=== PATIENT | female | born 1950 | race Caucasian/White ===

== ENCOUNTER 2018-01-05 13:54 | Emergency (ER) | payer MEDICARE, BC ==
[~2018-01-05] VITALS: Ht 167.6 cm; Wt 117.9 kg
[~2018-01-05 13:54] MED LIST: ASPIRIN81 MG PO; BUPROPION HCL150 M2 PO; CRESTOR10 MG PO; FENOFIBRATE160 MG PO; GABAPENTIN300 MG PO; LEVAQUIN500 MG PO; LEVOTHYROXINE75 MCG PO; MOBIC7.5 MG PO; NEXIUM40 MG PO; TRIBENZOR 40-11 EAC1 PO; ULTRAM50 MG PO; VERAPAMIL ER180 MG PO
--- OUTSIDE RECORDS SUMMARY | 2018-01-05 13:58 | XMS REPORT | Clinical Summary ---
Author Author [facility] Organization [facility] Address Unknown Phone Unavailable Care Team Providers Care Financial Services Assistant Name Role Phone Asked, Pcp PCP Unavailable Allergies Active Allergy Reactions Severity Noted Date Comments Latex 08/19/2016 Sulfa (Sulfonamide 08/19/2016 Antibiotics) Current Medications Prescription Sig. Disp. Refills Start End Date Status Date meloxicam (MOBIC) 7.5 MG Take 7.5 mg by mouth Active tablet daily. buPROPion SR (WELLBUTRIN Take 150 mg by mouth 2 Active SR) 150 MG 12 hr tablet (two) times a day. rosuvastatin (CRESTOR) 20 Take 20 mg by mouth Active MG tablet daily. esomeprazole (NexIUM) 40 Take 40 mg by mouth daily Active MG capsule before breakfast. clonAZEPAM (KlonoPIN) 1 Take 1 mg by mouth 2 Active MG tablet (two) times a day as needed for seizures. gabapentin (NEURONTIN) Take 300 mg by mouth 3 Active 300 MG capsule (three) times a day. aspirin (ECOTRIN) 81 MG Take 81 mg by mouth Active enteric coated tablet daily. verapamil sustained Take 180 mg by mouth Active release (CALAN-SR) 180 MG nightly. SR tablet fenofibrate (LOFIBRA) 160 Take 160 mg by mouth Active MG tablet daily. levothyroxine (SYNTHROID, Take 75 mcg by mouth Active LEVOTHROID) 75 MCG tablet every morning. Active Problems Problem Noted Date Hypertension 08/19/2016 Hyperlipidemia 08/19/2016 Social History Tobacco Use Types Packs/Day Years Used Date Current Every Day Smoker Sex Assigned at Date Recorded Not on file Last Filed Vital Signs Not on file Plan of Treatment Health Maintenance Due Date Last Done Comments COLONOSCOPY 12/29/2001 MAMMOGRAM 12/29/2001 ZOSTER VACCINE 2011 PNEUMOCOCCAL 12/29/2016 POLYSACCHARIDE VACCINE AGE 65 AND OVER PNEUMOCOCCAL-13 12/29/2016 INFLUENZA VACCINE 05/06/2017 Results Not on fileafter 01/04/2017 Insurance Payer Benefit Subscriber ID Type Phone Address Plan / Group BCBS EXCHANGE BLUE xxxxxxxxxxxx Exchange ADVANTAGE HMO EXCH Home:
--- OUTSIDE RECORDS SUMMARY | 2018-01-05 14:55 | XMS REPORT | Clinical Summary ---
Author Author [facility] Organization [facility] Address Unknown Phone Unavailable Care Team Providers Care Almond Pan Finisher Name Role Phone Asked, Pcp PCP Unavailable [...]
[2018-01-05 15:11] LABS: CLARITY,URINE SL CLOUDY (CLEAR); COLOR,URINE YELLOW (YELLOW)
[2018-01-05 15:12] LABS: BILIRUBIN,URINE NEGATIVE (NEGATIVE); KETONES,URINE NEGATIVE (NEGATIVE); LEUKOCYTE ESTERASE ,URINE 2+ (NEGATIVE); NITRITE,URINE NEGATIVE (NEGATIVE); PROTEIN,URINE DIPSTICK TRACE (NEGATIVE); URINE UROBILINOGEN 0.2 mg/dL (0.2 - 1)
[2018-01-05 15:27] LABS: EPITHELIAL CELLS,URINE MODERATE /LPF; RENAL EPITHELIAL CELLS,URINE FEW; TRANSITIONAL EPI CELLS,URINE FEW
[2018-01-05] MEDS ORDERED: LEVOFLOXACIN 500 MG TAB PO ONE (16:45)
[2018-01-05] MEDS ORDERED: KETOROLAC TROMETHAMINE 60 MG/2 ML VIAL IM ONE (16:45)
[2018-01-05] MEDS ORDERED: GUAIFENESIN 600MG/DEXTROMETHORPHAN 30MG TABSR PO ONE (17:00)
[2018-01-05] MEDS ORDERED: DEXAMETHASONE SOD PHOS 10 MG/1 ML VIAL INJ ONE (17:00)
[2018-01-05] MEDS ORDERED: ALBUTEROL/IPRATROPIUM 3 ML NEB NEB ONE (17:00)
[2018-01-05] MEDS ORDERED: DIPHENOXYLATE/ATROPINE TAB PO ONE (17:00)
--- NOTE | 2018-01-05 17:24 | Diagnostic Imaging Report ---
PROCEDURE:X-RAY BILATERAL RIBS WITH CHEST XRAY COMPARISON:None. INDICATIONS:COUGH WITH FLANK AND RIB PAIN FINDINGS: BONES: Normal mineralization. No acute fracture or dislocation. Joint spaces are within normal limits. Degenerative changes of the thoracic spine. SOFT TISSUES:Negative. OTHER:Bibasilar linear atelectasis. Scalloping of the right hemidiaphragm. No focal consolidations. No pleural effusion or pneumothorax. CONCLUSION: No displaced rib fractures. Bibasilar linear atelectasis. Mary Ellen Prieto M.D. Dictated by: Mary Ellen Prieto M.D. on 01/05/2018 at 17:25 Electronically approved by: Mary Ellen Prieto M.D. on 01/05/2018 at 17:25
[2018-01-05 18:35] LABS: BASOPHILS # (AUTO) 0.1 (0.0-0.1); BASOPHILS % 0.4 % (0.0-1.0); EOSINOPHILS # (AUTO) 0.4 (0.0-0.4); EOSINOPHILS % 3.2 % (0.0-6.0); HEMATOCRIT 40.2 % (34.2-44.1); HEMOGLOBIN 13.2 g/dL (12.0-16.0); LYMPHOCYTES # (AUTO) 2.4 (1.0-3.2); LYMPHOCYTES % 21.4 % (18.0-39.1); MEAN CORPUSCULAR HEMOGLOBIN 30.6 pg (28-32); MEAN CORPUSCULAR HGB CONC 32.8 g/dL (31-35); MEAN CORPUSCULAR VOLUME 93.1 fL (81-99); MONOCYTES # (AUTO) 0.9 (0.2-0.8); MONOCYTES % 7.6 % (4.4-11.3); NEUTROPHILS # (AUTO) 7.5 (2.1-6.9); NEUTROPHILS % 66.8 % (38.7-80.0); PLATELET COUNT 382 x10e3/uL (140-360); RED BLOOD COUNT 4.32 x10e6/uL (3.6-5.1); RED CELL DISTRIBUTION WIDTH 13.2 % (11.7-14.4)
[2018-01-05 18:52] LABS: ALBUMIN 3.8 g/dL (3.5-5.0); ALBUMIN/GLOBULIN RATIO 0.9 (0.8-2.0); ANION GAP 17.1 mmol/L (8-16); CALCIUM 10.6 mg/dL (8.4-10.2); CREATININE, SERUM 2.27 mg/dL (0.57-1.11); POTASSIUM 5.1 mmol/L (3.5-5.1)
== END 2018-01-05 20:01 | disposition home or self-care (01) ==
LOC: ER 14:53
DX: R10.12 Left upper quadrant pain (principal); R11.0 Nausea; R19.7 Diarrhea, unspecified; R05 Cough; M79.1 Myalgia; N18.9 Chronic kidney disease, unspecified; F17.210 Nicotine dependence, cigarettes, uncomplicated
CPT/HCPCS: 36415; 71111; 80053; 81001; 85025; 87086; 94640; 99284; J1100

== ENCOUNTER 2018-10-22 02:06 | Inpatient (IN) | payer MEDICARE, BC ==
[~2018-10-22] VITALS: Ht 167.6 cm; Wt 98.7 kg
[2018-10-22] VITALS (7 sets, daily range): BP systolic 138–219; BP diastolic 68–113
--- OUTSIDE RECORDS SUMMARY | 2018-10-22 02:11 | XMS REPORT | Clinical Summary ---
Author Author [facility] Address Unknown Phone Unavailable Care Team Providers Care Electrical Fitter Name Role Phone Asked, No Pcp PCP Unavailable Allergies Comments Active Allergy Reactions Severity Noted Date Latex 08/19/2016 Sulfa (Sulfonamide 08/19/2016 Antibiotics) Medications End Date Status Medication Sig Dispensed Refills Start Date Active meloxicam (MOBIC) 7.5 MG Take 7.5 mg 0 tablet by mouth daily. Active buPROPion SR (WELLBUTRIN Take 150 mg 0 SR) 150 MG 12 hr tablet by mouth 2 (two) times a day. Active rosuvastatin (CRESTOR) 20 Take 20 mg by 0 MG tablet mouth daily. Active esomeprazole (NexIUM) 40 Take 40 mg by 0 MG capsule mouth daily before breakfast. Active clonAZEPAM (KlonoPIN) 1 Take 1 mg by 0 MG tablet mouth 2 (two) times a day as needed for seizures. Active gabapentin (NEURONTIN) Take 300 mg 0 300 MG capsule by mouth 3 (three) times a day. Active aspirin (ECOTRIN) 81 MG Take 81 mg by 0 enteric coated tablet mouth daily. Active verapamil sustained Take 180 mg 0 release (CALAN-SR) 180 MG by mouth SR tablet nightly. Active fenofibrate (LOFIBRA) 160 Take 160 mg 0 MG tablet by mouth daily. Active levothyroxine (SYNTHROID, Take 75 mcg 0 LEVOTHROID) 75 MCG tablet by mouth every morning. Active Problems Problem Noted Date Hypertension 08/19/2016 Hyperlipidemia 08/19/2016 Social History Date Tobacco Use Types Packs/Day Years Used Current Every Day Smoker Sex Assigned at Date Recorded Not on file Industry Job Start Date Occupation Not on file Not on file Not on file Travel End Travel History Travel Start No recent travel history available. Last Filed Vital Signs Not on file Plan of Treatment Health Maintenance Due Date Last Done Comments BREAST CANCER SCREENING 12/29/2001 COLON CANCER SCREENING 12/29/2001 SHINGLES VACCINES (1 of 12/29/2001 2) PNEUMOCOCCAL 12/29/2016 POLYSACCHARIDE VACCINE AGE 65 AND OVER PNEUMOCOCCAL-13 12/29/2016 INFLUENZA VACCINE 05/06/2018 Results Not on fileafter 10/21/2017 Insurance Payer Benefit Subscriber ID Type Phone Address Plan / Group BCBS EXCHANGE BLUE xxxxxxxxxxxx Exchange ADVANTAGE HMO EXCH Advance Directives Patient has advance care planning documents on file. For more information, yong wood contact: Sukhjinder Bassett [address] [place] [address]
--- OUTSIDE RECORDS SUMMARY | 2018-10-22 02:11 | XMS REPORT ---
[facility] Address Unknown Phone Unavailable Care Team Providers Care Toilet And Laundry Soap Supervisor Name Role Phone Familia ACOSTA Unavailable Unavailable Problems This patient has no known problems. Allergies, Adverse Reactions, Alerts This patient has no known allergies or adverse reactions. Medications This patient has no known medications. Results Test Description Test Time Test Comments Text Results Atomic Results Result Comments RIBS BILAT W/CXR [place] [id number] Patient Name: AYESHA DOUGLAS MR #: [id number] : 1950 Age/Sex: 67/F Req #: [id number] Adm Physician: Ordered by: NICOLAS ACOSTA MD Report #: [id number] Location: ER Room/Bed: Procedure: [id number] DX/RIBS BILAT W/CXR Exam Date: 01/05/18 Exam Time: 1520 REPORT STATUS: Signed PROCEDURE: X-RAY BILATERAL RIBS WITH CHEST XRAY COMPARISON: None. INDICATIONS: COUGH WITH FLANK AND RIB PAIN FINDINGS: BONES: Normal mineralization. No acute fracture or dislocation. Joint spaces are within normal limits. Degenerative changes of the thoracic spine. SOFT TISSUES: Negative. OTHER: Bibasilar linear atelectasis. Scalloping of the right hemidiaphragm. No focal consolidations. No pleural effusion or pneumothorax. CONCLUSION: No displaced rib fractures. Bibasilar linear atelectasis. Mary Ellen Weaver M.D. Dictated by: Mary Ellen Weaver M.D. on 01/05/2018 at 17:25 Electronically approved by: Mary Ellen Weaver M.D. on 01/05/2018 at 17:25 Dictated By: ALVINO WEAVER MD, MD 24 Transcribed By: EVELYNE on 01/05/181724 COPY TO: NICOLAS ACOSTA MD
[2018-10-22] MEDS ORDERED: NIFEDIPINE 10 MG CAP PO STA (02:23)
[2018-10-22 02:45] LABS: BASOPHILS # (AUTO) 0.1 (0.0-0.1); BASOPHILS % 0.3 % (0.0-1.0); EOSINOPHILS # (AUTO) 0.3 (0.0-0.4); EOSINOPHILS % 1.5 % (0.0-6.0); HEMATOCRIT 45.8 % (34.2-44.1); HEMOGLOBIN 15.2 g/dL (12.0-16.0); LYMPHOCYTES # (AUTO) 3.6 (1.0-3.2); LYMPHOCYTES % 18.8 % (18.0-39.1); MEAN CORPUSCULAR HEMOGLOBIN 29.7 pg (28-32); MEAN CORPUSCULAR HGB CONC 33.2 g/dL (31-35); MEAN CORPUSCULAR VOLUME 89.6 fL (81-99); MONOCYTES # (AUTO) 1.4 (0.2-0.8); MONOCYTES % 7.3 % (4.4-11.3); NEUTROPHILS # (AUTO) 13.8 (2.1-6.9); PLATELET COUNT 365 x10e3/uL (140-360); RED BLOOD COUNT 5.11 x10e6/uL (3.6-5.1); RED CELL DISTRIBUTION WIDTH 13.7 % (11.7-14.4)
[2018-10-22 02:58] LABS: BILIRUBIN,URINE NEGATIVE (NEGATIVE); CLARITY,URINE CLOUDY (CLEAR); COLOR,URINE YELLOW (YELLOW); KETONES,URINE NEGATIVE (NEGATIVE); LEUKOCYTE ESTERASE ,URINE NEGATIVE (NEGATIVE); NITRITE,URINE NEGATIVE (NEGATIVE); PROTEIN,URINE DIPSTICK 2+ (NEGATIVE); URINE UROBILINOGEN 0.2 mg/dL (0.2 - 1)
--- NOTE | 2018-10-22 03:07 | Diagnostic Imaging Report ---
EXAMINATION: Head CT without contrast. HISTORY:Headache, hypertension. COMPARISON:None. TECHNIQUE: Multidetector axial images were obtained from the foramen magnum to the vertex without contrast. The images were reconstructed using brain and bone algorithms. Thin section brain images were reformatted into coronal and sagittal planes. Dose modulation, iterative reconstruction, and/or weight based adjustment of the mA/kV was utilized to reduce the radiation dose to central cerebral low as reasonably achievable. Intravenous contrast: None IMAGE QUALITY: Acceptable. FINDINGS: Skull/scalp: No lytic or blastic. lesions. No surgical changes. Parenchyma: Nonspecific bilateral frontoparietal patchy white matter hypodensity are likely related to small vessel ischemic changes. No acute hemorrhage, mass or acute major vascular territorial infarct. Arteries: No density suggestive of thrombosis. Atherosclerotic calcification in bilateral carotid siphon. Dural sinuses: No abnormal density suggestive of thrombosis. Ventricles: Mild ventricular dilatation, mildly disproportionate to the amount of cerebral volume loss. Extra-axial spaces: No abnormal density. Brain volume: Normal for age. Craniocervical junction: No mass, Chiari malformation, or basilar invagination. Sella: No mass. Paranasal/mastoid sinuses: Moderate mucosal thickening in bilateral sphenoid and left frontal sinus. IMPRESSION: 1. No acute intracranial abnormality, particularly no acute hemorrhage or major vascular territorial infarct. 2. Mild supratentorial white matter microvascular ischemic changes. 3. Mild ventriculomegaly disproportionate to the amount of cerebral volume loss may be due to selective central cerebral parenchymal volume loss or represent chronic compensated communicating type hydrocephalus in appropriate clinical setting. 4. Moderate mucosal inflammatory changes in bilateral sphenoid and left frontal sinus. Signed by: Dr. Kavita Hatch M.D. on 10/22/2018 3:04 AM
[2018-10-22 03:08] LABS: BACTERIA,URINE MANY /HPF; EPITHELIAL CELLS,URINE MANY /LPF; TRANSITIONAL EPI CELLS,URINE FEW
[2018-10-22] MEDS ORDERED: ONDANSETRON HCL INJ 2MG/ML 2ML 2 MG/ML VIAL IV STA ×2 (03:09→03:10)
[2018-10-22] MEDS ORDERED: MORPHINE SULFATE 5 MG/ML VIAL IV ONE (03:15)
[2018-10-22 03:18] LABS: ALBUMIN 3.3 g/dL (3.5-5.0); ALBUMIN/GLOBULIN RATIO 0.9 (0.8-2.0); ANION GAP 16.8 mmol/L (8-16); CALCIUM 9.7 mg/dL (8.4-10.2); CREATININE, SERUM 1.77 mg/dL (0.57-1.11); POTASSIUM 3.8 mmol/L (3.5-5.1)
[2018-10-22 03:19] LABS: CREATINE KINASE MB 2.1 ng/mL (0-5.0)
[2018-10-22 03:25] LABS: ERYTHROCYTE SEDIMENTATION RATE 28 mm/hr (0-20)
[2018-10-22 03:44] LABS: COLOR,URINE YELLOW (YELLOW)
[2018-10-22 03:45] LABS: AMORPHOUS SEDIMENT,URINE FEW (FEW); BACTERIA,URINE MANY /HPF; BILIRUBIN,URINE NEGATIVE (NEGATIVE); CLARITY,URINE HAZY (CLEAR); EPITHELIAL CELLS,URINE RARE /LPF; KETONES,URINE NEGATIVE (NEGATIVE); LEUKOCYTE ESTERASE ,URINE NEGATIVE (NEGATIVE); NITRITE,URINE NEGATIVE (NEGATIVE); PROTEIN,URINE DIPSTICK 2+ (NEGATIVE); RBC,URINE 0-5 /HPF (0-5); URINE UROBILINOGEN 0.2 mg/dL (0.2 - 1); WBC,URINE (MAN) 0-5 /HPF (0-5)
[2018-10-22] MEDS ORDERED: MORPHINE SULFATE INJ 4 MG/ML INJ 1ML ONE (03:59)
[2018-10-22] MEDS ORDERED: SODIUM CHLORIDE 0.9% 500ML 500 ML IV ONE (04:00)
--- NOTE | 2018-10-22 04:19 | Diagnostic Imaging Report ---
EXAM: CHEST 2 VIEWS, PA and lateral INDICATION: Cough/hypertension COMPARISON: None FINDINGS: LINES/TUBES: None LUNGS: No consolidations or edema. Mild bibasilar linear atelectasis/scarring. PLEURA: No effusions or pneumothorax. HEART AND MEDIASTINUM: Normal size and contour. BONES AND SOFT TISSUES: No acute findings. IMPRESSION: No evidence of pneumonia. Signed by: Dr. Abiloa Otto M.D. on 10/22/2018 4:16 AM
[2018-10-22] MEDS ORDERED: FLAXSEED1000 MG PO (04:41)
[2018-10-22] MEDS ORDERED: FLAXSEED OIL1000 MG (04:41)
[2018-10-22] MEDS ORDERED: MORPHINE SULFATE 2 MG/ML SYR 1ML IV PRN (04:45)
[2018-10-22] MEDS ORDERED: ONDANSETRON HCL INJ 2MG/ML 2ML 2 MG/ML VIAL IV PRN (04:45)
[2018-10-22] MEDS ORDERED: SODIUM CHLORIDE 0.9% 1000ML 1,000 ML IV ONE (04:45)
[2018-10-22 04:48] LABS: INR 0.86; PARTIAL THROMBOPLASTIN TIME 33.9 seconds (23.8-35.5); PROTHROMBIN TIME 12.5 seconds (11.9-14.5)
[2018-10-22] MEDS ORDERED: LASIX40 MG PO (04:48)
[2018-10-22] MEDS ORDERED: CLONAZEPAM1 MG PO (04:48)
[2018-10-22] MEDS ORDERED: [UNRECOGNIZED DRUG - OTHER] PO (04:48)
[2018-10-22] MEDS ORDERED: ALDACTONE25 MG PO (04:48)
[2018-10-22] MEDS ORDERED: ATENOLOL50 MG PO (04:48)
[2018-10-22] MEDS ORDERED: LINZESS PO (04:48)
--- OUTSIDE RECORDS SUMMARY | 2018-10-22 04:54 | XMS REPORT | Clinical Summary ---
Author Author [facility] Organization [facility] Address Unknown Phone Unavailable Care Team Providers Care Aspnet Developer Name Role Phone Asked, No Pcp PCP [...] more information, yong wood contact: Sukhjinder Bassett [address] [place] [address]
[2018-10-22] MEDS: CEFTRIAXONE SOD 1 GM/NS 50 ML 50 ML IV SCH (05:05)
[2018-10-22] MEDS: HYDRALAZINE HCL 20 MG/ML VIAL IV PRN (05:12)
--- NOTE | 2018-10-22 06:15 | NUR ---
PT ARRIVED ON THE UNIT AT 0608 WITH HER DAUGHTER. NO RESPIRATORY DISTRESS NOTED. BED IN LOWEST POSITION, LOCKED, AND CALL LIGHT WITHIN REACH. WILL CONTINUE TO MONITOR.
--- NOTE | 2018-10-22 06:48 | NUR ---
PAGE DR Alverto REYEZ IN REGARD TO HIGH BP 219/113 AND HEADACHE. AWAITING CALL BACK.
--- NOTE | 2018-10-22 07:27 | NUR ---
PER DR REYEZ RESTART HOME MEDICATION AND NIFEDIPINE 60MG BID. WILL CONTINUE TO MONITOR.
[2018-10-22] MEDS ORDERED: LINZESS 72 MCG PO PRN ×2 (07:30→07:45)
[2018-10-22] MEDS ORDERED: TRAMADOL HCL 50 MG TAB PO PRN (07:30)
[2018-10-22] MEDS ORDERED: CLONAZEPAM 1 MG TAB PO PRN (07:30)
--- NOTE | 2018-10-22 07:45 | NUR ---
PATIENT IN BED WITH HEAD OF BED ELEVATED TALKING TO HER DAUGHTER, NO RESPIRATORY DISTRESS OBSERVED. DENIED PAIN AT THIS TIME. LARGE BRUISE OBSERVED ON THE LEFT SIDE OF ABDOMEN, PATIENT STATED THAT SHE FELL AT HOME 4 DAYS AGO. WALKER PROVIDED, AND PATIENT INSTRUCTED TO CALL FOR ASSISTANCE BEFORE GETTING OUT OF BED, SHE VERBALIZED UNDERSTANDING. PATIENT NOTED WITH ELEVATED BLOOD PRESSURE, HOME MEDS RENEWED, AWAITING PHARMACY TO VERIFY. RESPIRATION EVEN AND UNLABORED. ABDOMEN SOFT AND NON DISTENDED. PATIENT ORIENTED TO SURROUNDINGS. BED IN LOWER POSITION, CALL LIGHT AT REACH. DAUGHTER AT BED SIDE.
[2018-10-22] MEDS: LEVOTHYROXINE SODIUM 75 MCG TAB PO SCH (07:55)
[2018-10-22] MEDS: FUROSEMIDE 40 MG TAB PO SCH (08:11)
[2018-10-22] MEDS: ASPIRIN 81 MG CHEW TAB PO SCH (08:11)
[2018-10-22] MEDS: GABAPENTIN 300 MG CAP PO SCH ×2 (08:11→17:21)
[2018-10-22] MEDS: SPIRONOLACTONE 25 MG TAB PO SCH (08:11)
[2018-10-22] MEDS: ATENOLOL 50 MG TAB PO SCH (08:11)
[2018-10-22] MEDS: PANTOPRAZOLE SOD 40 MG TABEC PO SCH (08:11)
[2018-10-22] MEDS: BUPROPION HCL SR 150 MG TAB PO SCH (08:12)
[2018-10-22] MEDS ORDERED: LEVOTHYROXINE SODIUM 75 MCG TAB PO SCH (09:00)
[2018-10-22] MEDS ORDERED: NIFEDIPINE CR 30 MG TAB PO SCH (09:00)
[2018-10-22] MEDS ORDERED: NIFEDIPINE 10 MG CAP PO SCH (09:00)
--- NOTE | 2018-10-22 09:52 | NUR ---
PATIENT NOTED WITH B/P OF 175/100. ALL AM MEDICATIONS ADMINISTERED, B/P RECHECKED WITH THE READING OF 139/68. WILL CONTINUE TO MONITOR.
[2018-10-22] MEDS ORDERED: MORPHINE SULFATE INJ 4 MG/ML INJ 1ML IV PRN (10:00)
[2018-10-22 10:30] LABS: CREATINE KINASE MB 1.5 ng/mL (0-5.0)
--- NOTE | 2018-10-22 10:42 | History and Physical ---
She is a 67-year-old female patient of Dr. Eldon Dubon. ADMITTING CHIEF COMPLAINT: Severe headache, bilateral temporal and occipital headache. HISTORY OF PRESENT ILLNESS: Ms. Lupis Cabrera has a headache, which comes and goes. The patient has right temporal frontal and left temporal occipital region headache without any neck pain, nausea or vomiting. The patient denies having any chest pain, shortness of breath. The patient was having severe headache. The patient also had right ear pain for a couple of months. Right ear . On arrival in the ER, the patient had severe hypertension. Blood pressure was 210/120. REVIEW OF SYSTEMS: Headache. No chest pain. No shortness of breath. Right ear pain. PAST MEDICAL HISTORY: Hypertension, CVA, hypertensive heart disease, CKD, renal artery stenosis, and depression. PAST SURGICAL HISTORY: Cholecystectomy and hysterectomy. MEDICATIONS: See from the list. ALLERGIES: THE PATIENT IS ALLERGIC TO SULFA AND AMOXICILLIN. FAMILY HISTORY: Hypertension. PHYSICAL EXAMINATION GENERAL: She is an elderly middle-aged female patient lying in bed not in any acute distress. VITALS: Temperature 98, pulse rate 80, respirations 20. The most recent blood pressure is 140/73. HEENT: Normocephalic and atraumatic. No JVD. No lymphadenopathy. LUNGS: Bilateral equal fair air entry. No rales. No rhonchi. HEART: S1 and S2 regular. No murmurs. No gallops. ABDOMEN: Soft. Bowel sounds are present. NEUROLOGICAL: No focal neuro deficits. Right ear congestion. EKG is showing right bundle branch block. LABORATORY EXAMINATION: The patient has a sodium of 128, creatinine of 1.77, BUN of 44. WBC count of 19.4. The patient had a brain CT done, which was showing inflammatory changes in the bilateral sphenoid and frontal sinus. Purulent sinusitis with no acute stroke. was negative. ADMITTING IMPRESSION/DIAGNOSES 1. Severe malignant hypertension. 2. Headache. 3. Hyponatremia. 4. Renal insufficiency. 5. Leukocytosis. 6. The patient has sinusitis also. The patient was admitted with the above diagnoses. The patient was given IV fluids. The patient was monitored. Will obtain urine C and S. in the morning. Will treat the patient with IV Levaquin for the sinusitis. Job#: [id number] RI cc:ELDON DUBON MD
[2018-10-22] MEDS: LEVOFLOXACIN 500MG/D5W 100ML 100 ML IV SCH (10:55)
--- NOTE | 2018-10-22 12:13 | NUR ---
PATIENT C/O GAS PAIN. MD NOTIFIED, NEW ORDER RECEIVED.
[2018-10-22] MEDS ORDERED: SIMETHICONE 80 MG CHEW PO PRN (12:15)
[2018-10-22] MEDS: ACETAMINOPHEN 325 MG TAB PO PRN ×2 (12:55→19:42)
--- NOTE | 2018-10-22 15:30 | NUR ---
PATIENT IN BED RESTING WITH NO RESPIRATORY DISTRESS. NO MORE C/O HEADACHE. BED IN LOWER POSITION, CALL LIGHT AT REACH.
[2018-10-22 18:48] LABS: CREATINE KINASE 54 IU/L (29-168)
[2018-10-22] MEDS ORDERED: SODIUM CHLORIDE 0.9% 250ML 250 ML ONE (23:58)
[2018-10-23] VITALS: BP 164/76
[2018-10-23] MEDS: ACETAMINOPHEN 325 MG TAB PO PRN ×3 (00:03→11:10)
[2018-10-23 04:00] VITALS: BP 146/76
[2018-10-23] MEDS: LEVOTHYROXINE SODIUM 75 MCG TAB PO SCH (05:14)
[2018-10-23] MEDS: CEFTRIAXONE SOD 1 GM/NS 50 ML 50 ML IV SCH (05:14)
[2018-10-23 06:11] LABS: BASOPHILS # (AUTO) 0.1 (0.0-0.1); BASOPHILS % 0.4 % (0.0-1.0); EOSINOPHILS # (AUTO) 0.5 (0.0-0.4); EOSINOPHILS % 3.3 % (0.0-6.0); HEMATOCRIT 41.8 % (34.2-44.1); HEMOGLOBIN 13.6 g/dL (12.0-16.0); LYMPHOCYTES # (AUTO) 3.3 (1.0-3.2); LYMPHOCYTES % 24.6 % (18.0-39.1); MEAN CORPUSCULAR HEMOGLOBIN 29.6 pg (28-32); MEAN CORPUSCULAR HGB CONC 32.5 g/dL (31-35); MEAN CORPUSCULAR VOLUME 90.9 fL (81-99); MONOCYTES # (AUTO) 1.2 (0.2-0.8); MONOCYTES % 9.2 % (4.4-11.3); NEUTROPHILS # (AUTO) 8.3 (2.1-6.9); NEUTROPHILS % 61.4 % (38.7-80.0); PLATELET COUNT 287 x10e3/uL (140-360); RED CELL DISTRIBUTION WIDTH 13.9 % (11.7-14.4)
[2018-10-23 06:36] LABS: ALBUMIN 3.1 g/dL (3.5-5.0); ALBUMIN/GLOBULIN RATIO 0.8 (0.8-2.0); ANION GAP 12.3 mmol/L (8-16); CALCIUM 9.5 mg/dL (8.4-10.2); CREATININE, SERUM 1.45 mg/dL (0.57-1.11); POTASSIUM 3.3 mmol/L (3.5-5.1)
[2018-10-23 06:53] LABS: CHOL/HDL RATIO 5.5 (3.0-3.6)
--- NOTE | 2018-10-23 07:30 | NUR ---
PT UP IN BED NO C/O PAIN,NO DISTRESS
[2018-10-23 08:00] VITALS: BP 137/83
[2018-10-23] MEDS ORDERED: NON-FORMULARY MEDICATION PO SCH (09:00)
[2018-10-23] MEDS ORDERED: AMLODIPINE BESYLATE 10 MG TAB PO SCH (09:00)
[2018-10-23] MEDS: SPIRONOLACTONE 25 MG TAB PO SCH (09:00)
[2018-10-23] MEDS ORDERED: OLMESARTAN 20 MG TAB PO SCH (09:00)
[2018-10-23] MEDS ORDERED: HYDROCHLOROTHIAZIDE 25 MG TAB PO SCH (09:00)
[2018-10-23] MEDS: ASPIRIN 81 MG CHEW TAB PO SCH (09:18)
[2018-10-23] MEDS: FUROSEMIDE 40 MG TAB PO SCH (09:18)
[2018-10-23] MEDS: PANTOPRAZOLE SOD 40 MG TABEC PO SCH (09:18)
[2018-10-23] MEDS: BUPROPION HCL SR 150 MG TAB PO SCH (09:18)
[2018-10-23] MEDS: GABAPENTIN 300 MG CAP PO SCH ×2 (09:18→17:00)
[2018-10-23] MEDS: ATENOLOL 50 MG TAB PO SCH (09:18)
[2018-10-23] MEDS: LEVOFLOXACIN 500MG/D5W 100ML 100 ML IV SCH (09:19)
[2018-10-23 10:22] LABS: PROTEIN,URINE DIPSTICK TRACE (NEGATIVE)
[2018-10-23 10:23] LABS: BILIRUBIN,URINE NEGATIVE (NEGATIVE); CLARITY,URINE SL CLOUDY (CLEAR); COLOR,URINE YELLOW (YELLOW); KETONES,URINE NEGATIVE (NEGATIVE); LEUKOCYTE ESTERASE ,URINE NEGATIVE (NEGATIVE); NITRITE,URINE NEGATIVE (NEGATIVE); URINE UROBILINOGEN 0.2 mg/dL (0.2 - 1)
[2018-10-23 10:34] LABS: BACTERIA,URINE RARE /HPF; EPITHELIAL CELLS,URINE MODERATE /LPF; RBC,URINE 0-5 /HPF (0-5)
[2018-10-23] MEDS: OFLOXACIN 0.3% (OTIC SOL) 5 ML BTL OT SCH (11:30)
[2018-10-23 12:03] VITALS: BP 149/84
[2018-10-23 16:00] VITALS: BP 184/81
--- NOTE | 2018-10-23 18:27 | NUR ---
PT C/O BRIZUELA MEDICATED,NO DISTRESS NTOED
[2018-10-23 20:00] VITALS: BP 159/99
[2018-10-24] VITALS (7 sets, daily range): BP systolic 140–170; BP diastolic 71–83
[2018-10-24] MEDS: ACETAMINOPHEN 325 MG TAB PO PRN ×4 (00:12→22:30)
--- NOTE | 2018-10-24 03:05 | NUR ---
Patient in bed with HOB slightly elevated. AAO x 4. No SOB noted. Bed at low position and locked. Call light within reach. Patient report of no pain at this time. No acute distress noted. Patient in stable condition, will continue to monitor.
[2018-10-24] MEDS: LEVOTHYROXINE SODIUM 75 MCG TAB PO SCH (05:49)
[2018-10-24 06:06] LABS: BASOPHILS % 0.3 % (0.0-1.0); EOSINOPHILS # (AUTO) 0.5 (0.0-0.4); EOSINOPHILS % 3.5 % (0.0-6.0); HEMATOCRIT 40.2 % (34.2-44.1); LYMPHOCYTES # (AUTO) 3.5 (1.0-3.2); LYMPHOCYTES % 25.7 % (18.0-39.1); MEAN CORPUSCULAR HGB CONC 32.3 g/dL (31-35); MEAN CORPUSCULAR VOLUME 89.7 fL (81-99); MONOCYTES # (AUTO) 1.3 (0.2-0.8); MONOCYTES % 9.3 % (4.4-11.3); NEUTROPHILS # (AUTO) 8.1 (2.1-6.9); NEUTROPHILS % 60.4 % (38.7-80.0); PLATELET COUNT 273 x10e3/uL (140-360); RED BLOOD COUNT 4.48 x10e6/uL (3.6-5.1); RED CELL DISTRIBUTION WIDTH 13.8 % (11.7-14.4)
[2018-10-24 06:31] LABS: ALBUMIN 3.1 g/dL (3.5-5.0); ALBUMIN/GLOBULIN RATIO 0.9 (0.8-2.0); ANION GAP 16.8 mmol/L (8-16); CALCIUM 9.6 mg/dL (8.4-10.2); CREATININE, SERUM 2.01 mg/dL (0.57-1.11); POTASSIUM 3.8 mmol/L (3.5-5.1)
--- NOTE | 2018-10-24 07:30 | NUR ---
PT IN BED SLEEPING NO DISTRESS NOTED.
[2018-10-24] MEDS ORDERED: FUROSEMIDE 40 MG TAB PO SCH (09:00)
[2018-10-24] MEDS ORDERED: FUROSEMIDE 20 MG TAB PO SCH (09:00)
[2018-10-24] MEDS: ASPIRIN 81 MG CHEW TAB PO SCH (09:00)
[2018-10-24] MEDS: BUPROPION HCL SR 150 MG TAB PO SCH (09:00)
[2018-10-24] MEDS: GABAPENTIN 300 MG CAP PO SCH ×2 (09:00→17:00)
[2018-10-24] MEDS: ATENOLOL 50 MG TAB PO SCH (09:00)
[2018-10-24] MEDS: PANTOPRAZOLE SOD 40 MG TABEC PO SCH (09:00)
[2018-10-24] MEDS: SPIRONOLACTONE 25 MG TAB PO SCH (09:00)
[2018-10-24] MEDS: LEVOFLOXACIN 500MG/D5W 100ML 100 ML IV SCH (10:00)
[2018-10-24] MEDS: OFLOXACIN 0.3% (OTIC SOL) 5 ML BTL OT SCH (10:38)
--- NOTE | 2018-10-24 12:30 | NUR ---
PHYSICAL THERAPY HERE AMBULATED PT IN HILARIO TOLERATED WELL.
--- NOTE | 2018-10-24 13:42 | NUR ---
SOCIAL WORK INITIAL ASSESSMENT Executive Chef to bedside to discuss plan of care with patient/family. CM/SW role and care transitions discussed. Anticipated discharge plan discussed along with duration of care. CM/SW discussed patients right to make decisions in care. CM/SW work hours given. Patient lives: IN HOUSE WITH Admit/Transfer: VIA ED FROM HOME POA/Emergency contact: DAUGHTER IS NYDIA [phone] Current/Previous Home Health: NONE BUT ASKING IF CAN GET SET UP PCP/Follow-up Care: BRAD Current/Previous DME: KACIE Other Services: NONE Employment Status: RETIRED Areas of Concerns: CURRENT EVERY DAY SMOKER Referral Needs: ASKING FOR HOME PHYSICAL THERAPY Education Needs: NONE IMM/STONE given and signed (if applicable): NA Goal for discharge: RETURN HOME CM/SW left business card at the bedside with contact information. Name and number was also written on the patients whiteboard. Patient verbalized understanding of discussion. CM will follow-up with ongoing discharge and transition of care needs.
[2018-10-24] MEDS ORDERED: LACTULOSE SYRUP 20 GM/30 ML UDC PO PRN (16:00)
--- NOTE | 2018-10-24 18:35 | NUR ---
PT IN BED RESTING NO DSITRESS NTOED,DENIES PAIN
--- NOTE | 2018-10-24 21:32 | Diagnostic Imaging Report ---
EXAM: US ABDOMEN COMPLETE INDICATION: Headache, hypertension COMPARISON: None TECHNIQUE: Transverse and longitudinal roca scale and color doppler sonographic images of the upper abdomen were obtained. FINDINGS: LIVER 17.1 cm in the right midclavicular line. Normal echogenicity, normal contour, no masses. SPLEEN 9.2 cm in maximum diameter. Poorly visualized. GALLBLADDER Mild wall thickening secondary to contracted state. Multiple small gallstones. Negative sonographic Valdez's sign. BILE DUCTS No intra nor extra-hepatic biliary dilation. Common bile duct measures 0.4 cm PANCREAS: Visualized portions are normal. RIGHT KIDNEY: Unable to evaluate secondary to bowel gas and body habitus. LEFT KIDNEY: 11.5 cm Echogenicity: Normal Collecting System: No hydronephrosis Stones: None Cyst/Mass: Simple cyst measuring 2 cm interpolar region. VESSELS: Aorta: Not well visualized Inferior Vena Cava: Not well visualized Main Portal Vein: 1 cm, normal size with hepatopetal flow. FREE FLUID: None IMPRESSION: Cholelithiasis without evidence of acute cholecystitis. Exam limited by bowel gas and body habitus. Signed by: Dr. Abiola Otto M.D. on 10/24/2018 9:28 PM
[2018-10-25] VITALS (7 sets, daily range): BP systolic 155–193; BP diastolic 78–95
[2018-10-25] MEDS: LEVOTHYROXINE SODIUM 75 MCG TAB PO SCH (06:05)
[2018-10-25] MEDS: ACETAMINOPHEN 325 MG TAB PO PRN ×2 (06:06→14:45)
[2018-10-25 06:15] LABS: ALBUMIN/GLOBULIN RATIO 0.8 (0.8-2.0); ANION GAP 13.5 mmol/L (8-16); CALCIUM 9.4 mg/dL (8.4-10.2); CREATININE, SERUM 1.94 mg/dL (0.57-1.11); POTASSIUM 3.5 mmol/L (3.5-5.1)
--- NOTE | 2018-10-25 07:30 | NUR ---
PT UP IN BED NO DISTRESS NTOED,BP ELEATED ,HYDRALAZINE GIVEN
[2018-10-25] MEDS: HYDRALAZINE HCL 20 MG/ML VIAL IV PRN (07:48)
--- NOTE | 2018-10-25 09:00 | NUR ---
BP 187/ 81
[2018-10-25] MEDS: DOCUSATE SODIUM 100 MG CAP PO SCH (09:01)
[2018-10-25] MEDS: ASPIRIN 81 MG CHEW TAB PO SCH (09:01)
[2018-10-25] MEDS: PANTOPRAZOLE SOD 40 MG TABEC PO SCH (09:01)
[2018-10-25] MEDS: SPIRONOLACTONE 25 MG TAB PO SCH (09:01)
[2018-10-25] MEDS: GABAPENTIN 300 MG CAP PO SCH ×2 (09:01→17:00)
[2018-10-25] MEDS: LEVOFLOXACIN 500MG/D5W 100ML 100 ML IV SCH (09:02)
[2018-10-25] MEDS: BUPROPION HCL SR 150 MG TAB PO SCH (09:02)
[2018-10-25] MEDS: ATENOLOL 50 MG TAB PO SCH (09:02)
[2018-10-25] MEDS: OFLOXACIN 0.3% (OTIC SOL) 5 ML BTL OT SCH (12:00)
--- NOTE | 2018-10-25 13:30 | NUR ---
DR REYEZ HERE ORDERS WRITTEN
--- NOTE | 2018-10-25 14:45 | NUR ---
Visit made by the Spiritual Care Department Pastoral Visitor, Lizbeth Saul. PV refused visit. COLETTE Chavez Spiritual Care Department O: [phone] Pager: [phone] ([phone] number calling from)
--- NOTE | 2018-10-25 18:19 | NUR ---
PT UP IN BED NO DISTRESS NTOED,DENIES PAIN.
--- NOTE | 2018-10-25 19:20 | NUR ---
Patient visited in room during nursing rounds. Patient alert and oriented x3. Daughter at bedside to stay at bedside. Left side with some bruising (hx of post fall at home). Patient uses heating pad prn on left side. Ambulatory prn with walker and assist. Call carrillo within reach.
[2018-10-25] MEDS ORDERED: AMLODIPINE BESYLATE 10 MG TAB PO SCH (21:00)
[2018-10-25] MEDS: ACETAMINOPHEN/CODEINE 300MG - 30MG TAB PO PRN (22:10)
[2018-10-26] VITALS: BP 171/84
[2018-10-26 04:00] VITALS: BP 180/98
[2018-10-26 04:15] VITALS: BP 202/106
[2018-10-26] MEDS: ACETAMINOPHEN/CODEINE 300MG - 30MG TAB PO PRN (04:20)
[2018-10-26] MEDS: HYDRALAZINE HCL 20 MG/ML VIAL IV PRN (04:20)
[2018-10-26] MEDS: LEVOTHYROXINE SODIUM 75 MCG TAB PO SCH (05:24)
[2018-10-26 05:51] LABS: BASOPHILS # (AUTO) 0.1 (0.0-0.1); BASOPHILS % 0.4 % (0.0-1.0); EOSINOPHILS # (AUTO) 0.5 (0.0-0.4); EOSINOPHILS % 3.6 % (0.0-6.0); HEMATOCRIT 40.4 % (34.2-44.1); HEMOGLOBIN 13.6 g/dL (12.0-16.0); LYMPHOCYTES # (AUTO) 2.5 (1.0-3.2); LYMPHOCYTES % 19.5 % (18.0-39.1); MEAN CORPUSCULAR HEMOGLOBIN 30.2 pg (28-32); MEAN CORPUSCULAR HGB CONC 33.7 g/dL (31-35); MEAN CORPUSCULAR VOLUME 89.6 fL (81-99); MONOCYTES # (AUTO) 1.1 (0.2-0.8); MONOCYTES % 8.3 % (4.4-11.3); NEUTROPHILS # (AUTO) 8.7 (2.1-6.9); NEUTROPHILS % 67.4 % (38.7-80.0); PLATELET COUNT 289 x10e3/uL (140-360); RED BLOOD COUNT 4.51 x10e6/uL (3.6-5.1)
[2018-10-26 06:04] LABS: ALBUMIN 3.4 g/dL (3.5-5.0); ALBUMIN/GLOBULIN RATIO 0.9 (0.8-2.0); ANION GAP 16.5 mmol/L (8-16); CALCIUM 9.7 mg/dL (8.4-10.2); CREATININE, SERUM 1.27 mg/dL (0.57-1.11); POTASSIUM 3.5 mmol/L (3.5-5.1)
--- NOTE | 2018-10-26 07:33 | NUR ---
PATIENT IN BED RESTING WITH NO RESPIRATORY DISTRESS. ALL PERSONAL ITEMS CLOSE TO PATIENT, BED IN LOWER POSITION, CALL LIGHT AT REACH. FAMILY AT BED SIDE.
[2018-10-26 07:40] VITALS: BP 209/101
[2018-10-26 08:12] VITALS: BP 209/101
[2018-10-26] MEDS: ACETAMINOPHEN 325 MG TAB PO PRN (08:40)
[2018-10-26] MEDS ORDERED: AMLODIPINE BESYLATE 10 MG TAB PO SCH (09:00)
[2018-10-26] MEDS ORDERED: ATENOLOL 100 MG TAB PO SCH (09:00)
[2018-10-26] MEDS: ASPIRIN 81 MG CHEW TAB PO SCH (09:35)
[2018-10-26] MEDS: DOCUSATE SODIUM 100 MG CAP PO SCH (09:35)
[2018-10-26] MEDS: SPIRONOLACTONE 25 MG TAB PO SCH (09:35)
[2018-10-26] MEDS: BUPROPION HCL SR 150 MG TAB PO SCH (09:36)
[2018-10-26] MEDS: GABAPENTIN 300 MG CAP PO SCH (09:36)
[2018-10-26] MEDS: PANTOPRAZOLE SOD 40 MG TABEC PO SCH (09:36)
[2018-10-26] MEDS: OFLOXACIN 0.3% (OTIC SOL) 5 ML BTL OT SCH (09:53)
--- NOTE | 2018-10-26 09:56 | NUR ---
PATIENT NOTED WITH ELEVATED B/P, MD NOTIFIED, NEW ORDER RECEIVED.
[2018-10-26] MEDS: LEVOFLOXACIN 500MG/D5W 100ML 100 ML IV SCH (10:00)
[2018-10-26] MEDS ORDERED: CLONIDINE HCL 0.2 MG TAB PO ONE (10:15)
[2018-10-26] MEDS ORDERED: LOSARTAN POTASSIUM 100 MG TAB PO SCH (10:30)
--- NOTE | 2018-10-26 11:30 | NUR ---
PATIENT TRYING TO GET OUT OF BED STATING I AM GOING HOME, REDIRECTED. DAUGHTER NOTIFIED, SHE STATED THAT ONE OF HER SISTER WILL COME TO SIT WITH HIM. PATIENT CLOSELY MONITOR, ON HIS PHONE AT THIS TIME. CALL LIGHT AT REACH, BED ALARM ACTIVATED. Addendum: 10/26/18 at 1133 by Jennifer Sánchez RN WRONG PATIENT
--- NOTE | 2018-10-26 11:30 | NUR ---
PATIENT HAS A D/C ORDER. AWAITING FOR SYSTOLIC B/P TO BE 150 OR LESS. ACTUAL B/P IS 160/75, LOSARTAN GIVEN. WILL CLOSELY MONITOR.
--- NOTE | 2018-10-26 11:52 | NUR ---
IMM EXPLAINED, SIGNED AND ON CHART COPY TO PT GAVE PT MY CARD FOR QUESTIONS/CONCERNS
[2018-10-26 12:13] VITALS: BP 150/78
--- NOTE | 2018-10-26 13:12 | Discharge Summary ---
She is a 67-year-old female patient of Dr. Dubon who presented to the emergency room with the complaint of severe headache and severe hypertension. ADMITTING IMPRESSION/DIAGNOSES 1. Accelerated malignant hypertension. 2. Severe headache. 3. Sinusitis. 4. Hyponatremia. 5. Renal insufficiency. 6. Leukocytosis. 7. Anxiety and depression. 8. Hypothyroidism. 9. Obesity. 10. Abdominal wall hematoma from the fall at home. HOSPITAL COURSE: The patient was admitted with the above diagnoses. Brain CT was done, which showed sinusitis. The patient had abdominal ultrasound done. The patient was treated with IV antibiotics. The patient had . The patient had unsteady gait, so physical therapy and occupational therapy evaluation was done. The patient was treated with Rocephin and Levaquin, which was tailored down to Levaquin only. The patient's hyponatremia had improved. The patient had renal insufficiency, which had worsened, but on stopping diuretics it had improved. Lasix was discontinued. The patient's Aldactone was continued and hydrochlorothiazide was also discontinued. The patient's blood pressure medicine was adjusted. Amlodipine was added. Losartan was also added. Now, . The patient will be discharged home and followed up as an outpatient with her PCP, Dr. Dubon. ESA REYEZ MD Job#: [id number] [place]
--- NOTE | 2018-10-26 13:19 | NUR ---
PATIENT'S B/P IS 112/58 AT THIS TIME. PATIENT STATED THAT SHE IS READY TO GO HOME.
[2018-10-26] MEDS ORDERED: ATENOLOL100 MG PO (13:46)
[2018-10-26] MEDS ORDERED: AMLODIPINE BESY10 MG PO (13:47)
[2018-10-26] MEDS ORDERED: LOSARTAN POTASS50 MG PO (13:48)
[2018-10-26] MEDS ORDERED: LEVAQUIN500 MG PO (13:48)
[2018-10-26] MEDS ORDERED: CLONIDINE1 EAC1 (13:51)
[2018-10-26] MEDS ORDERED: ULTRACET TABLE1 EACH PO (13:54)
--- NOTE | 2018-10-26 14:10 | NUR ---
PATIENT DISCHARGED HOME. DISCHARGE INSTRUCTIONS, PRESCRIPTIONS, AND FOLLOW UP GIVEN TO PATIENT AND DAUGHTER, THEY VERBALIZED UNDERSTANDING. IV TO RIGHT HAND REMOVED WITH TIP INTACT. ALL PERSONAL ITEMS TAKEN WITH PATIENT. LEFT UNIT PER WHEEL CHAIR TO FRONT LOBBY.
== END 2018-10-26 14:06 | disposition home or self-care (01) | DRG 683 ==
LOC: ER 02:06 → ERHOLD 04:47 → MED/SURG3 06:12 → OBSVTOIN 10-23 10:30
PROVIDERS: ADMIT Internal Medicine; ATTEND Internal Medicine
DX: I12.9 Hypertensive chronic kidney disease with stage 1 through stage 4 chronic kidney disease, or unspecified chronic kidney disease (principal); N30.00 Acute cystitis without hematuria; E87.1 Hypo-osmolality and hyponatremia; G44.89 Other headache syndrome; N18.9 Chronic kidney disease, unspecified; Z86.73 Personal history of transient ischemic attack (TIA), and cerebral infarction without residual deficits; J32.9 Chronic sinusitis, unspecified; S30.1XXA Contusion of abdominal wall, initial encounter; E78.5 Hyperlipidemia, unspecified; I70.1 Atherosclerosis of renal artery; Z88.1 Allergy status to other antibiotic agents; Z88.2 Allergy status to sulfonamides; F17.210 Nicotine dependence, cigarettes, uncomplicated; Z82.49 Family history of ischemic heart disease and other diseases of the circulatory system; D72.829 Elevated white blood cell count, unspecified; F32.9 Major depressive disorder, single episode, unspecified
CPT/HCPCS: 36415; 70450; 71046; 76700; 80053; 80061; 81001; 82550; 82553; 83735; 83880; 84484; 85025; 85610; 85651; 85730; 87086; 93005; 96374; 97139; 99284; G0378; J0360; J0696; J1956; J2270; J2405; J7030; J7040; J7050

== ENCOUNTER 2018-11-16 14:20 | Observation (INO) | payer MEDICARE, BC ==
[~2018-11-16] VITALS: Ht 170.2 cm; Wt 108.9 kg
[~2018-11-16 14:20] MED LIST changes: +ALDACTONE25 MG PO; +AMLODIPINE BESY10 MG PO; +ATENOLOL100 MG PO; +ATENOLOL50 MG PO; +CLONAZEPAM1 MG PO; +CLONIDINE1 EAC1; +FLAXSEED OIL1000 MG; +FLAXSEED1000 MG PO; +LASIX40 MG PO; +LINZESS PO; +LOSARTAN POTASS50 MG PO; +ULTRACET TABLE1 EACH PO; +[UNRECOGNIZED DRUG - OTHER] PO
--- OUTSIDE RECORDS SUMMARY | 2018-11-16 14:24 | XMS REPORT | Clinical Summary ---
Author Author [facility] Organization [facility] Address Unknown Phone Unavailable Care Team Providers Care Front Desk Admin Name Role Phone Asked, No Pcp PCP [...] INFLUENZA VACCINE 05/06/2018 Results Not on fileafter 11/15/2017 Insurance Payer Benefit Subscriber ID Type Phone Address Plan / Group BCBS EXCHANGE BLUE xxxxxxxxxxxx Exchange ADVANTAGE HMO EXCH Advance Directives Patient has advance care planning documents on file. For more information, yong wood contact: Sukhjinder Bassett [address] [place] [address]
[2018-11-16 15:42] LABS: BACTERIA,URINE FEW /HPF; BILIRUBIN,URINE NEGATIVE (NEGATIVE); CLARITY,URINE HAZY (CLEAR); COLOR,URINE YELLOW (YELLOW); EPITHELIAL CELLS,URINE FEW /LPF; KETONES,URINE NEGATIVE (NEGATIVE); LEUKOCYTE ESTERASE ,URINE NEGATIVE (NEGATIVE); NITRITE,URINE NEGATIVE (NEGATIVE); PROTEIN,URINE DIPSTICK TRACE (NEGATIVE); URINE UROBILINOGEN 0.2 mg/dL (0.2 - 1); WBC,URINE (MAN) 0-5 /HPF (0-5)
[2018-11-16 15:43] LABS: HEMATOCRIT 42.5 % (34.2-44.1); HEMOGLOBIN 13.8 g/dL (12.0-16.0); MEAN CORPUSCULAR HEMOGLOBIN 28.8 pg (28-32); MEAN CORPUSCULAR HGB CONC 32.5 g/dL (31-35); MEAN CORPUSCULAR VOLUME 88.5 fL (81-99); NEUTROPHILS % 9.5 % (38.7-80.0); PLATELET COUNT 336 x10e3/uL (140-360); RED CELL DISTRIBUTION WIDTH 13.8 % (11.7-14.4)
[2018-11-16 15:43] LABS: MUCUS,URINE FEW (RARE)
[2018-11-16 15:44] LABS: EOSINOPHILS % 0.3 % (0.0-6.0); MONOCYTES % 0.9 % (4.4-11.3)
[2018-11-16 15:56] LABS: ALBUMIN 3.4 g/dL (3.5-5.0); ALBUMIN/GLOBULIN RATIO 0.9 (0.8-2.0); ANION GAP 18.8 mmol/L (8-16); CALCIUM 9.1 mg/dL (8.4-10.2); CREATININE, SERUM 1.68 mg/dL (0.57-1.11); POTASSIUM 3.8 mmol/L (3.5-5.1)
[2018-11-16] MEDS ORDERED: DIATRIZOATE MEGL/DIATRIZOA SOD 30 ML BTL PO ONE (16:58)
--- NOTE | 2018-11-16 18:43 | Diagnostic Imaging Report ---
EXAMINATION: CT of the abdomen and pelvis without contrast. TECHNIQUE: Helical CT images of the abdomen and pelvis were performed from the lung bases to the lesser trochanters. No intravenous contrast was given per renal stone protocol. Enteric contrast administered. Coronal and sagittal reformatted images were obtained.Dose modulation, iterative reconstruction, and/or weight based adjustment of the mA/kV was utilized to reduce the radiation dose to as low as reasonably achievable. COMPARISON: None. CLINICAL HISTORY:Abdominal pain DISCUSSION: ABSENCE OF INTRAVENOUS CONTRAST DECREASES SENSITIVITY FOR DETECTION OF FOCAL LESIONS AND VASCULAR PATHOLOGY. ABDOMEN/PELVIS: LOWER THORAX: Unremarkable. HEPATOBILIARY:No focal hepatic lesions. No biliary ductal dilation. Cholecystectomy. SPLEEN: No splenomegaly. PANCREAS: No focal masses or ductal dilatation. ADRENALS: Right adrenal gland unremarkable. Left adrenal adenoma 1.9 cm. KIDNEYS/URETERS: Atrophy of the right kidney. The left kidney normal. PELVIC ORGANS/BLADDER: The bladder is normal. PERITONEUM/RETROPERITONEUM: No free air or fluid. LYMPH NODES: No intra-abdominal,retroperitoneal, pelvic or inguinal lymphadenopathy. VESSELS: Vascular calcifications. GI TRACT: No distention or wall thickening. Colonic diverticulosis mild stranding adjacent to the descending colon. BONES AND SOFT TISSUES: No bony destructive lesions. No soft tissue abnormalities. IMPRESSION: Colonic diverticulosis with inflammatory change adjacent to the descending colon may reflect mild uncomplicated diverticulitis. Signed by: Dr. Todd Ramírez M.D. on 11/16/2018 6:40 PM
[2018-11-16] MEDS ORDERED: MORPHINE SULFATE 2 MG/ML SYR 1ML IV PRN (22:30)
--- OUTSIDE RECORDS SUMMARY | 2018-11-16 22:37 | XMS REPORT | Clinical Summary ---
Author Author [facility] Organization [facility] Address Unknown Phone Unavailable Care Team Providers Care Sheet Heater Helper Name Role Phone Asked, No Pcp PCP [...] more information, yong wood contact: Sukhjinder Bassett [address] [place] [address]
[2018-11-16 23:00] VITALS: BP 114/63
[2018-11-16] MEDS ORDERED: MORPHINE SULFATE INJ 4 MG/ML INJ 1ML ONE (23:48)
[2018-11-17] VITALS (7 sets, daily range): BP systolic 105–144; BP diastolic 56–69
[2018-11-17] MEDS: LEVOFLOXACIN 500MG/D5W 100ML IV SCH ×2 (00:01→22:30)
[2018-11-17] MEDS: SODIUM CHLORIDE 0.9% 1000ML 1,000 ML IV SCH ×3 (00:01→17:30)
[2018-11-17] MEDS: ONDANSETRON HCL INJ 2MG/ML 2ML 2 MG/ML VIAL IV PRN ×3 (00:02→13:43)
[2018-11-17] MEDS: METRONIDAZOLE 500MG/NS 100ML IV SCH ×5 (01:01→17:30)
[2018-11-17] MEDS: MORPHINE SULFATE INJ 4 MG/ML INJ 1ML IV PRN ×3 (04:12→21:19)
[2018-11-17] MEDS ORDERED: MORPHINE SULFATE INJ 4 MG/ML INJ 1ML IV PRN (04:15)
--- NOTE | 2018-11-17 07:11 | NUR ---
PT AWAKE RESP EVEN AND UNLABORED AT THIS TIME NO DISTRESS NOTED PT ABLE TO MAKE NEEDS KNOWN, CALL LIGHT IN REACH.
[2018-11-17 07:44] LABS: BASOPHILS % 0.4 % (0.0-1.0); EOSINOPHILS # (AUTO) 0.2 (0.0-0.4); EOSINOPHILS % 1.4 % (0.0-6.0); HEMATOCRIT 38.2 % (34.2-44.1); LYMPHOCYTES # (AUTO) 0.9 (1.0-3.2); LYMPHOCYTES % 8.3 % (18.0-39.1); MEAN CORPUSCULAR HEMOGLOBIN 28.8 pg (28-32); MEAN CORPUSCULAR HGB CONC 31.4 g/dL (31-35); MEAN CORPUSCULAR VOLUME 91.6 fL (81-99); MONOCYTES # (AUTO) 0.8 (0.2-0.8); MONOCYTES % 7.3 % (4.4-11.3); NEUTROPHILS # (AUTO) 9.1 (2.1-6.9); NEUTROPHILS % 81.9 % (38.7-80.0); PLATELET COUNT 284 x10e3/uL (140-360); RED BLOOD COUNT 4.17 x10e6/uL (3.6-5.1); RED CELL DISTRIBUTION WIDTH 13.7 % (11.7-14.4)
[2018-11-17 08:06] LABS: ALBUMIN/GLOBULIN RATIO 0.8 (0.8-2.0); ANION GAP 16.6 mmol/L (8-16); CALCIUM 9.2 mg/dL (8.4-10.2); CREATININE, SERUM 1.82 mg/dL (0.57-1.11); POTASSIUM 4.6 mmol/L (3.5-5.1)
--- NOTE | 2018-11-17 11:47 | History and Physical ---
CHIEF COMPLAINT: Abdominal pain, lower abdominal, with rectal bleeding. HISTORY OF PRESENT ILLNESS: This is a 67-year-old female, morbidly obese, with past medical history of hypertension and irritable bowel syndrome, who comes in to the ED with complaint of rectal bleeding ongoing for the last 1 day. The patient reports she has a history of diverticulitis in the past and was followed up with a GI specialist. Of note, she reports having a colonoscopy about 6 months ago found to be normal. She does not know the name of the GI specialist. Patient reports having crampy abdominal pain with associated nausea, vomiting, and decreased oral intake. She also reports having some rectal bleeding as well. Patient was seen and evaluated at bedside on the medical floor, currently doing well with no other complaints at this time. She states she is hungry, which we will start her on a clear liquid diet and advance as tolerated. GI was consulted. REVIEW OF SYSTEMS PERTINENT POSITIVES: Crampy abdominal pain, nausea, vomiting, and rectal bleeding. PERTINENT NEGATIVES: Denies any chest pain, palpitations, nausea, vomiting, diarrhea, dysuria, hematuria, frequency, urgency, lightheadedness, dizziness, cough, congestion, fever or any other complaints. Rest of 14-point review of systems have been reviewed with the patient and are negative. ALLERGIES. SULFONAMIDE AND AMOXICILLIN. PAST MEDICAL HISTORY: Morbidly obese. History of diverticulitis, hypertension and irritable bowel syndrome. PAST SURGICAL HISTORY: Reports none. FAMILY HISTORY: Hypertension and diabetes. SOCIAL HISTORY: No drugs. No alcohol. Does not smoke. Good social support. VITAL SIGNS: Temperature 97.7, pulse 70, respiratory rate 18, blood pressure 117/59, pulse ox 92% on room air. LAB FINDINGS: White count 11.1, hemoglobin 12, hematocrit 38, platelets 284. Chemistries: Sodium 133, potassium 4.6, chloride 98, bicarb 23, anion gap 16, BUN 22, creatinine 1.82. Glucose is 133. Calcium is 9.2. Total bilirubin 1.28, AST 118, ALT 75, alk phos 189, total protein 6.8, albumin 3. Urinalysis was found to be negative. MICROBIOLOGY: None. IMAGING STUDIES: CT of the abdomen and pelvis: Colonic diverticulosis. Densities in the ascending colon may represent uncomplicated diverticulitis. PHYSICAL EXAMINATION GENERAL: Not in acute distress. Alert and oriented x3. Cooperative on examination. HEENT: Head is normocephalic, atraumatic. Eyes: Pupils are equal and reactive to light bilaterally. The extraocular movements are intact bilaterally. NECK: Supple. Good range of motion. Throat: No evidence of any erythema or exudates in the posterior pharynx. Has poor dentition. PULMONARY: Clear to auscultation bilaterally. No wheezing, rales or rhonchi. No crackles appreciated. CARDIOVASCULAR: Positive S1 and S2. No murmurs, rubs, or gallops appreciated. ABDOMEN: Tender to palpation in the left lower quadrant. Positive bowel sounds. No rebound. No guarding. MUSCULOSKELETAL: Strength is 5/5 throughout. No evidence of any musculoskeletal deficits on examination. No weakness appreciated. NEUROLOGICAL: Cranial nerves II through XII are grossly intact. No evidence of any neurological deficits on exam. SKIN: Intact. Warm to touch. Good cap refill. PSYCHIATRIC: Normal affect and mood. EXTREMITIES: No edema. Good range of motion throughout. IMPRESSION 1. Abdominal pain secondary to acute diverticulitis with underlying rectal bleeding. 2. History of hypertension. 3. Acute versus chronic kidney disease. 4. Morbidly obese. PLAN: At this time continue with IV Flagyl and Levaquin as the antibiotics. She reports that her pain is better controlled now on my evaluation. GI consulted. Clear liquid diet, advance as tolerated. Decrease IV fluids to 75 mL per hour. Continue with pain control. Resume the same home medications for now. Her kidney function, I am not sure what her baseline is. It seems to be acute on chronic. We will continue with IV fluids and repeat labs in the morning. Hold anticoagulation due to rectal bleeding. Her hemoglobin is stable. Will continue to monitor very closely. Otherwise, the patient will likely be discharged here in the next 1 to 2 days. Job#: [id number]
--- NOTE | 2018-11-17 12:00 | NUR ---
diet clear liquid pt tolerated well.
--- NOTE | 2018-11-17 13:13 | NUR ---
SOCIAL WORK INITIAL ASSESSMENT Abrasive Wheel Molder to bedside to discuss plan of care with patient/family. CM/SW role and care transitions discussed. Anticipated discharge plan discussed along with duration of care. CM/SW discussed patients right to make decisions in care. CM/SW work hours given. Patient lives: IN OWN HOUSE WITH AND DAUGHTER Admit/Transfer: VIA ED POA/Emergency contact: DAUGHTER IS NYDIA IGNATIOUS [phone] Current/Previous Home Health: NONE PCP/Follow-up Care: EDWARD Current/Previous DME: [facility]ACIE Other Services: NONE Employment Status: RETIRED Areas of Concerns: WOULD LIKE HOME HEALTH Referral Needs: NA Education Needs: NONE IMM/STONE given and signed (if applicable): NA Goal for discharge: RETURN HOME POSSIBLY WITH HOME HEALTH OR SOME THERAPY PER DAUGHTER CM/SW left business card at the bedside with contact information. Name and number was also written on the patients whiteboard. Patient verbalized understanding of discussion. CM will follow-up with ongoing discharge and transition of care needs.
--- NOTE | 2018-11-17 13:19 | NUR ---
PT DISCHARGED ON 10/26, STATE MADE A FOLLOW UP APPOINTMENT BUT IT ISNT FOR ANOTHER WEEK AND A HALF SO RETURNED HERE. PT IS A CURRENT EVERYDAY SMOKER BUT ONLY A FEW DAILY.
--- NOTE | 2018-11-17 14:11 | NUR ---
ORDERS FOR OBS STATUS TODAY STONE EXPLAINED TO PT AND SIGNED AND PLACED IN CHART COPY TO PT
--- NOTE | 2018-11-17 14:45 | NUR ---
Visit made by the Spiritual Care Department Pastoral Visitor, Ayesha Almendarez. PV provided pastoral presence, prayer, hospitality, and supportive listening. Pastoral Visitor informed pt/family of the scope of [employer] and availability. COLETTE BOLANOS Stack Clerk Spiritual Care Department O: [phone] Pager: [phone] ([phone] number calling from)
[2018-11-17] MEDS: GABAPENTIN 300 MG CAP PO SCH (17:09)
--- NOTE | 2018-11-17 17:10 | NUR ---
pt diet full liquid pt tolerated well.
--- NOTE | 2018-11-17 19:43 | NUR ---
report given to oncoming nurse, for continued care.
[2018-11-17] MEDS: CLONAZEPAM 1 MG TAB PO PRN (20:30)
[2018-11-18] VITALS (8 sets, daily range): BP systolic 112–163; BP diastolic 55–77
[2018-11-18] MEDS: METRONIDAZOLE 500MG/NS 100ML IV SCH ×5 (00:26→23:30)
[2018-11-18] MEDS ORDERED: DIPHENHYDRAMINE HCL 25 MG CAP PO ONE (01:00)
[2018-11-18] MEDS: MORPHINE SULFATE INJ 4 MG/ML INJ 1ML IV PRN (02:00)
[2018-11-18] MEDS: LEVOTHYROXINE SODIUM 75 MCG TAB PO SCH (05:28)
[2018-11-18] MEDS: DICYCLOMINE HCL 20 MG TAB PO SCH ×3 (05:28→22:13)
[2018-11-18 06:30] LABS: BASOPHILS % 0.4 % (0.0-1.0); EOSINOPHILS # (AUTO) 0.3 (0.0-0.4); EOSINOPHILS % 5.1 % (0.0-6.0); HEMATOCRIT 38.9 % (34.2-44.1); LYMPHOCYTES # (AUTO) 1.5 (1.0-3.2); LYMPHOCYTES % 22.1 % (18.0-39.1); MEAN CORPUSCULAR HEMOGLOBIN 28.5 pg (28-32); MEAN CORPUSCULAR HGB CONC 30.8 g/dL (31-35); MEAN CORPUSCULAR VOLUME 92.4 fL (81-99); MONOCYTES # (AUTO) 0.8 (0.2-0.8); MONOCYTES % 11.8 % (4.4-11.3); NEUTROPHILS % 59.6 % (38.7-80.0); PLATELET COUNT 244 x10e3/uL (140-360); RED BLOOD COUNT 4.21 x10e6/uL (3.6-5.1); RED CELL DISTRIBUTION WIDTH 13.8 % (11.7-14.4)
[2018-11-18 06:51] LABS: ANION GAP 13.1 mmol/L (8-16); CALCIUM 8.8 mg/dL (8.4-10.2); CREATININE, SERUM 1.55 mg/dL (0.57-1.11); POTASSIUM 4.1 mmol/L (3.5-5.1)
[2018-11-18] MEDS: SODIUM CHLORIDE 0.9% 1000ML 1,000 ML IV SCH ×2 (07:01→20:03)
[2018-11-18] MEDS: CLONAZEPAM 1 MG TAB PO PRN ×2 (07:02→22:14)
[2018-11-18] MEDS: DIPHENHYDRAMINE HCL 25 MG CAP PO PRN ×2 (07:02→17:03)
--- NOTE | 2018-11-18 07:23 | NUR ---
Received patient. Patient sitting up in bed at this time, family at bedside, no signs of distress. Bed in lowest position, wheels locked, side rails up x2, call light in reach. Will continue to monitor.
[2018-11-18] MEDS: ATENOLOL 50 MG TAB PO SCH (08:19)
[2018-11-18] MEDS: GABAPENTIN 300 MG CAP PO SCH ×2 (08:19→17:00)
[2018-11-18] MEDS: PANTOPRAZOLE SOD 40 MG TABEC PO SCH (08:19)
[2018-11-18] MEDS: ASPIRIN 81 MG CHEW TAB PO SCH (08:19)
[2018-11-18] MEDS: BUPROPION HCL SR 150 MG TAB PO SCH (08:19)
[2018-11-18] MEDS: AMLODIPINE BESYLATE 10 MG TAB PO SCH (08:19)
[2018-11-18] MEDS ORDERED: ATENOLOL 100 MG TAB PO SCH (09:00)
--- NOTE | 2018-11-18 10:05 | NUR ---
Patient A/O X3, even respirations on RA. Last BM yesterday, bowel sounds active. Patient ambulates with walker. No complaints of pain or discomfort at this time. R hand 22 gauge IV H/L. Skin intact, no edema. Patient complain of red hives/rash, Prednisone given per MD order. Daughter at bedside. Call light in reach, will continue to monitor.
[2018-11-18] MEDS ORDERED: PREDNISONE 20 MG TAB PO ONE (10:15)
--- NOTE | 2018-11-18 11:37 | Progress Note ---
DATE: November 18, 2018 MEDICINE PROGRESS NOTE SUBJECTIVE: Patient is doing well. She reports having a rash on her body, which I examined her, she does have a rash. Patient was given multiple drugs. I am not sure which medication actually caused her to have this rash, either antibiotics, morphine, or is something else. At this time, we will have to monitor very closely. Put her on some steroids and Benadryl. OBJECTIVE VITAL SIGNS: Temperature is 96.5, pulse 75, respiratory rate 20, blood pressure 152/73, pulse ox 96% on room air. LABS: White count is 6.7, hemoglobin 12, hematocrit 38.9, platelets of 244. Chemistries: Sodium 136, potassium 4.1, chloride 103, bicarb 25, anion gap of , BUN is 13, creatinine 1.55, glucose is 109, calcium 8.8. AST 119, ALT 75, alk phos 189, total protein 6.8. Urinalysis negative. MICROBIOLOGY: None. IMAGING STUDIES: CT abdomen and pelvis: colonic diverticulosis with inflammatory changes. Changes in descending colon may reflect mild uncomplicated diverticulitis. PHYSICAL EXAMINATION GENERAL: Not in acute distress. Alert and oriented x3. Cooperative on exam. HEENT: Head is normocephalic and atraumatic. Eyes: Pupils are equal and reactive to light bilaterally. Extraocular movements intact bilaterally. NECK: Supple. Good range of motion. Throat with no evidence of any erythema or exudates in the posterior pharynx. Has poor dentition. PULMONARY: Clear to auscultation bilaterally. No wheezing. No rales. No rhonchi. No crackles appreciated. CARDIOVASCULAR: Positive S1 and S2. No murmurs, rubs or gallops appreciated. ABDOMEN: Soft, nondistended, nontender to palpation. Bowel sounds present. MUSCULOSKELETAL: Strength is 5/5 throughout. No evidence of any musculoskeletal deficit on examination. No weakness appreciated. NEUROLOGICAL: Cranial nerves II through XII are grossly intact. No evidence of any neurological deficits on exam. SKIN: Intact. Warm to touch. Good cap refill. PSYCHIATRIC: Normal affect and mood. EXTREMITIES: Patient has an extensive macular rash on her anterior chest wall, a little bit on the face, as well as on the upper extremities and lower extremities. IMPRESSIONS 1. Abdominal pain secondary to acute diverticulitis with underlying rectal bleeding, now resolving. 2. History of hypertension. 3. Nkuhi-sm-lzfquob kidney disease. 4. Morbid obesity. 5. Rash. PLAN: At this time, continue with IV antibiotics for now. Pain control. Advance diet to regular. No more rectal bleeding. Hemoglobin is stable at 12. pressure is better. Her renal function is improved with IV fluids. We are going to encourage ambulation, oral hydration, oral food. She did develop a rash, I am not sure from which medication that caused it; could be antibiotic, could be pain control; I am not exactly sure. But at this time, I told the nurse to monitor very closely. The nurse does not know exactly which drug has caused that. We are going to give her another dose of Benadryl, give her 40 mg of p.o. prednisone and will monitor her closely. Nurse verbalized understanding. Job#: [id number] VELMA
--- NOTE | 2018-11-18 17:05 | NUR ---
Gave Benadryl for patient complaint of itching. Will continue to monitor.
--- NOTE | 2018-11-18 20:17 | NUR ---
SPOKE TO DR. MATIAS AT THIS TIME REGARDING PT REFUSING PAIN MED MORPHINE. NEW ORDER RCV TO CONTINUE HOME MED ULTRACET.
[2018-11-18] MEDS ORDERED: TRAMADOL/APAP 37.5MG-325MG TAB PO PRN (20:30)
[2018-11-18] MEDS: LEVOFLOXACIN 500MG/D5W 100ML IV SCH (22:30)
[2018-11-19] VITALS: BP 135/65
--- NOTE | 2018-11-19 00:10 | NUR ---
DR. Rosana BECKER ROUNDING AT THIS TIME. NEW ORDER RCV TO STOP IV FLUIDS.
[2018-11-19 04:00] VITALS: BP 150/68
[2018-11-19] MEDS: DICYCLOMINE HCL 20 MG TAB PO SCH (06:20)
[2018-11-19] MEDS: METRONIDAZOLE 500MG/NS 100ML IV SCH (06:20)
[2018-11-19] MEDS: LEVOTHYROXINE SODIUM 75 MCG TAB PO SCH (06:20)
--- NOTE | 2018-11-19 07:14 | NUR ---
Received patient. Patient awake at this time resting in bed no signs of distress. Bed in lowest position, wheels locked, side rails x2, call light in reach.
[2018-11-19] MEDS: ASPIRIN 81 MG CHEW TAB PO SCH (08:11)
[2018-11-19] MEDS: GABAPENTIN 300 MG CAP PO SCH (08:11)
[2018-11-19] MEDS: PANTOPRAZOLE SOD 40 MG TABEC PO SCH (08:11)
[2018-11-19] MEDS: ATENOLOL 50 MG TAB PO SCH (08:12)
[2018-11-19] MEDS: AMLODIPINE BESYLATE 10 MG TAB PO SCH (08:12)
[2018-11-19] MEDS: BUPROPION HCL SR 150 MG TAB PO SCH (08:12)
[2018-11-19 08:14] VITALS: BP 142/78
[2018-11-19 09:10] VITALS: BP 142/78
--- NOTE | 2018-11-19 09:15 | NUR ---
Patient A/O X3, even respirations on RA. Patient is ambulatory with standby assist, voids in the toilet. Last BM yesterday, bowel sounds active. Skin is intact, no edema. Right hand 22 gauge IV SL. No signs of distress at this time or complaint of pain, will continue to monitor.
[2018-11-19] MEDS ORDERED: TYLENOL WITH C1 EACH PO (10:31)
[2018-11-19] MEDS ORDERED: CIPRO500 MG PO (10:32)
[2018-11-19] MEDS ORDERED: FLAGYL250 MG PO (10:32)
[2018-11-19] MEDS ORDERED: PREDNISONE20 MG PO (10:33)
--- NOTE | 2018-11-19 11:46 | NUR ---
Removed patients IV, catheter tip intact and pressure dressing applied.
[2018-11-19 11:54] VITALS: BP 145/67
--- NOTE | 2018-11-19 11:57 | NUR ---
Patient discharged from facility. Patient gathered all personal belongings, discharge information, prescriptions, and follow up information. Left unit in wheelchair and went home via private auto. No signs of distress when leaving facility.
--- NOTE | 2018-11-19 12:29 | Discharge Summary ---
FINAL DISCHARGE DIAGNOSES 1. Acute diverticulitis, now improving. 2. Hypertension. 3. Acute kidney injury secondary to dehydration. 4. Morbid obesity. 5. Rash secondary to morphine. CONSULTANTS: GI. VITAL SIGNS: Temperature is 97, pulse 73, respiratory rate is 18, blood pressure is 142/78, pulse ox 94% on room air. LAB FINDINGS: Show white count 6.7, hemoglobin 12, hematocrit 39, platelets of 244. Chemistry: Sodium 132, potassium 4.1, chloride 102, bicarb 25, anion gap of 13, BUN 13, creatinine is 1.55, calcium is 8.8. LFTs were found to be within normal range. Urinalysis was negative. Hepatitis panel was all pending. MICROBIOLOGY: None. IMAGING STUDIES: CT abdomen and pelvis without contrast shows colonic diverticulosis with inflammatory changes adjacent to the descending colon, may reflect uncomplicated diverticulitis. HOSPITAL COURSE: This is a 67-year-old female who came into the ED with complaint of abdominal pain, nausea, and vomiting. GI was consulted. CT scan was consistent with mild diverticulitis. Patient was on IV antibiotics with much improvement. While here in the hospital, she did develop a rash which was presumed to be from morphine. Morphine now is on her allergy list. Patient's rash improved and she was on some oral steroids which improved tremendously. On discharge, she will be discharged on oral Cipro, Flagyl, and oral steroids for the rash. On the day of discharge, vital signs stable, labs reviewed and stable. The patient was seen and evaluated and examined thoroughly on the day of discharge with no other complaints. Patient verbalized understanding and agrees with plan of care, to follow up accordingly as an outpatient with the primary care physician in 1 week and GI in 2 weeks' time. Patient was tolerating diet well prior to being discharged with no other issues and he is being cleared by the GI specialist. MEDICATIONS: See med reconciliation form, including Cipro 500 mg p.o. b.i.d., Flagyl 500 mg p.o. t.i.d., Tylenol No. 3 for pain. CONDITION: Stable. DIET: Heart healthy. In the event of any worsening symptoms, patient advised to come back to the ED for further evaluation. Discharge summary took greater than 35 minutes. EDWIN MATIAS MD Job#: [id number] TA
== END 2018-11-19 11:57 | disposition home or self-care (01) ==
LOC: ER 14:20 → ERHOLD 22:34 → INTOOBSV 22:34 → MED/SURG 11-17 02:32
PROVIDERS: ADMIT Internal Medicine; ATTEND Internal Medicine
DX: K57.33 Diverticulitis of large intestine without perforation or abscess with bleeding (principal); E78.5 Hyperlipidemia, unspecified; I12.9 Hypertensive chronic kidney disease with stage 1 through stage 4 chronic kidney disease, or unspecified chronic kidney disease; N18.9 Chronic kidney disease, unspecified; Z88.1 Allergy status to other antibiotic agents; Z86.73 Personal history of transient ischemic attack (TIA), and cerebral infarction without residual deficits; Z88.5 Allergy status to narcotic agent; Z88.2 Allergy status to sulfonamides; Z82.49 Family history of ischemic heart disease and other diseases of the circulatory system; E66.01 Morbid (severe) obesity due to excess calories; K58.9 Irritable bowel syndrome, unspecified; Z79.01 Long term (current) use of anticoagulants; N17.9 Acute kidney failure, unspecified; T40.2X5A Adverse effect of other opioids, initial encounter; Y92.230 Patient room in hospital as the place of occurrence of the external cause; Z68.37 Body mass index [BMI] 37.0-37.9, adult
CPT/HCPCS: 36415 ×3; 74176; 80048; 80053 ×2; 81001; 85025 ×3; 93005; 96374; 96375; 99284; G0378 ×4; J1956 ×3; J2270 ×3; J2405 ×2; J7030 ×2; J7512; S0164 ×2

== ENCOUNTER 2020-03-04 22:33 | Inpatient (IN) | payer MEDICARE, BC, OTHER ==
[~2020-03-04] VITALS: Ht 170.2 cm; Wt 110.8 kg
[~2020-03-04 22:33] MED LIST changes: +CIPRO500 MG PO; +FLAGYL250 MG PO; -FLAXSEED OIL1000 MG; +FLAXSEED OIL1000 MG PO; +PREDNISONE20 MG PO; +TYLENOL WITH C1 EACH PO
--- OUTSIDE RECORDS SUMMARY | 2020-03-04 22:38 | XMS REPORT ---
Author Author [facility] t Organization [facility] Address 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 Role Phone ELDON STERLING MD PCP Valdo KHAN Attphys Unavailable REYEZRosana HAN Attphys Unavailable KARLAFamilia CERNA Attphys Unavailable REYEZRosana Admphys Unavailable Payers Payer Name Policy Type Policy Number Effective Date Expiration Date [facility] [id number] 2016 00:00:00 [facility] Medicare A & B [id number] 2016 00:00:00 [facility] [employer] Exchange [id number] 2015 00:00:00 [facility] Problems Condition Name Condition Details Condition Category Status Onset Date Resolution Date Last Treatment Date Treating Clinician Comments Source Hypertension Hypertension Disease Active 2016-08-19 00:00:00 Sukhjinder Bassett Hyperlipidemia Hyperlipidemia Disease Active 2016-08-19 00:00:00 Sukhjinder Bassett Chronic kidney disease CKD (chronic kidney disease) Problem Active [facility] Headache Headache Problem Active [facility] Hypertensive urgency Hypertensive urgency Problem Active [facility] Hyponatremia Hyponatremia Problem Active [facility] Diverticulitis of colon with hemorrhage Diverticulitis of co kelly with bleeding Problem Active [facility] Allergies, Adverse Reactions, Alerts Allergy Name Allergy Type Status Severity Reaction(s) Onset Date Inacti ve Date Treating Clinician Comments Source Morphine Allergy to Substance Active HIVES 2018-11-18 00:00:00 [facility] Sulfa (Sulfonamide Antibiotics) Allergy to Substance Active HIVES,VOMITING 2018-11-16 00:00:00 [facility] Amoxicillin Allergy to Substance Active Moderate DIARRHEA 2018-11-16 00 :00:00 [facility] Latex Propensity to adverse reactions to drug Active 2016-08-19 00:00:00 Sukhjinder Bassett Sulfa (Sulfonamide Antibiotics) Propensity to adverse reactions to drug Active 2016-08-19 00:00:00 Amie Bassett Social History Social Habit Start Date Stop Date Quantity Comments Source Sex Assigned At Mark Bassett Smoking Status Start Date Stop Date Source Current every day smoker 2016-08-19 00:00:00 Mark Bassett Medications Ordered Medication Name Filled Medication Name Start Date Stop Da te Current Medication? Ordering Clinician Indication Dosage Frequency Signature (SIG) Comments Components Source levothyroxine (SYNTHROID, LEVOTHROID) 75 MCG tablet 2015-10 10:20:08 Yes 75ug QD Take 75 mcg by mouth every morning. Sukhjinder Bassett meloxicam (MOBIC) 7.5 MG tablet 2016-08-19 10:20:07 Yes 7.5mg QD Take 7.5 mg by mouth daily. Sukhjinder Bassett buPROPion SR (WELLBUTRIN SR) 150 MG 12 hr tablet 2016-08-19 10:20:07 Yes 150mg Q.5D Take 150 mg by mouth 2 (two) times a day. Sukhjinder Bassett rosuvastatin (CRESTOR) 20 MG tablet 2016-08-19 10:20:07 Yes 20mg QD Take 20 mg by mouth daily. Sukhjinder Bassett esomeprazole (NexIUM) 40 MG capsule 2016-08-19 10:20:07 Yes 40mg QD Take 40 mg by mouth daily before breakfast. Bulmaro Bassett clonAZEPAM (KlonoPIN) 1 MG tablet 2016-08-19 10:20:07 Yes 1mg Q.5D Take 1 mg by mouth 2 (two) times a day as needed for seizures. Sukhjinder Bassett gabapentin (NEURONTIN) 300 MG capsule 2016-08-19 10:20:07 Yes 300mg Q.[id number] Take 300 mg by mouth 3 (three) times a day. Sukhjinder Bassett aspirin (ECOTRIN) 81 MG enteric coated tablet 2016-08-19 10:20:0 7 Yes 81mg QD Take 81 mg by mouth daily. Bulmaor Malaveist verapamil sustained release (CALAN-SR) 180 MG SR tablet 2016-08-19 10:20:07 Yes 180mg QD Take 180 mg by mouth nightly. Sukhjinder Malaveist fenofibrate (LOFIBRA) 160 MG tablet 2016-08-19 10:20:07 Yes 160mg QD Take 160 mg by mouth daily. Sukhjinder florian Acetaminophen With Codeine (Tylenol With Codeine #3 Ta blet) 1 Each Tablet Acetaminophen With Codeine (Tylenol With Codeine #3 Tablet) 1 Each Tablet Yes 300 Every 6 Hours as needed for Pain [facility] Amlodipine Besylate 10 Mg Tablet Amlodipine Besylate 10 Mg Tablet Yes 10 Daily [facility] Aspirin 81 Mg Tab.chew Aspirin 81 Mg Tab.chew Yes 81 Daily [facility] Atenolol 50 Mg Tablet Atenolol 50 Mg Tablet Yes 50 Daily [facility] Atenolol 100 Mg Tablet Atenolol 100 Mg Tablet Yes Daily [facility] Bupropion Hcl (Bupropion Hcl Sr) 150 Mg Tablet.er Bupr opion Hcl (Bupropion Hcl Sr) 150 Mg Tablet.er Yes 150 Daily [facility] Ciprofloxacin Hcl (Cipro) 500 Mg Tablet Ciprofloxacin Hcl (C ipro) 500 Mg Tablet Yes 500 Twice A Day [facility] Clonazepam 1 Mg Tablet Clonazepam 1 Mg Tablet Yes 1 Twice A Day as needed for Anxiety [facility] Clonidine 1 Each Patch.tdwk Clonidine 1 Each Patch.tdwk Yes .1 Every 6 Hours for High Blood Pressure [facility] Esomeprazole Magnesium (Nexium) 40 Mg Capsule.dr Lemus prazole Magnesium (Nexium) 40 Mg Capsule. Yes 40 Daily [facility] Flaxseed (Flaxseed Oil) 1,000 Mg Capsule Flaxseed (Fla xseed Oil) 1,000 Mg Capsule Yes [facility] Flaxseed Oil (Flaxseed) 1,000 Mg Capsule Flaxseed Oil (Flaxseed) 1,000 Mg Capsule Yes 1000 Daily [facility] Furosemide (Lasix) 40 Mg Tablet Furosemide (Lasix) 40 Mg Tablet Yes 40 Daily [facility] Gabapentin 300 Mg Capsule Gabapentin 300 Mg Capsule Yes 300 Twice A Day [facility] Levofloxacin (Levaquin) 500 Mg Tablet Levofloxacin (Levaquin) 500 M g Tablet Yes 500 Daily [facility] Levothyroxine Sodium 75 Mcg Tablet Levothyroxine Sodium 75 Mcg Tablet Yes 75 Daily [facility] Linzess Linzess Yes 72 Every 72 Days as needed for Constipation [facility] Losartan Potassium 50 Mg Tablet Losartan Potassium 50 Mg Tablet Yes Daily [facility] Metronidazole (Flagyl) 250 Mg Tablet Metronidazole (Flagyl) 250 Mg Tablet Yes 500 Three Times A Day [facility] Prednisone 20 Mg Tab Prednisone 20 Mg Tab Yes 40 Daily [facility] Spironolactone (Aldactone) 25 Mg Tablet Spironolactone ([place] ctone) 25 Mg Tablet Yes 50 Daily [facility] Tramadol Hcl (Ultram) 50 Mg Tablet Tramadol Hcl (Ultram) 50 Mg Tablet Yes 50 Every 8 Hours as needed for Pain [facility] Tramadol Hcl/Acetaminophen (Ultracet Tablet) 1 Each Ta blet Tramadol Hcl/Acetaminophen (Ultracet Tablet) 1 Each Tablet Yes 37.5 Every 6 Hours as needed for Pain [facility] Histex Dm , 2 Tsp Oral Histex Dm , 2 Tsp Oral 2018-10-26 00:00:00 No 2 Three Times A Day [facility] Verapamil Hcl (Verapamil Er) 180 Mg Tber, 180 Mg Oral Verapamil Hcl (Verapamil Er) 180 Mg Tber, 180 Mg Oral 2018-10-26 00:00:00 No 180 Bedtime [facility] Fenofibrate 160 Mg Tablet, 160 Mg Oral Fenofibrate 160 Mg Tablet , 160 Mg Oral 2018-10-22 00:00:00 No 160 Daily [facility] Meloxicam (Mobic*) 7.5 Mg Tablet, 7.5 Mg Oral Meloxica m (Mobic*) 7.5 Mg Tablet, 7.5 Mg Oral 2018-10-22 00:00:00 No 7.5 Daily [facility] Olmesartan Med/Amlodipine/Hctz (Tribenzo r 40-10-25 Mg Tablet) 1 Each Tablet, 1 Tab Oral Olmesartan Med/Amlodipine/Hctz (Tribenzo r 40-10-25 Mg Tablet) 1 Each Tablet, 1 Tab Oral 2018-10-22 00:00:00 No 1 Daily [facility] Rosuvastatin Calcium (Crestor) 10 Mg Tab, 20 Mg Oral R osuvastatin Calcium (Crestor) 10 Mg Tab, 20 Mg Oral 2018-10-22 00:00:00 No 20 Daily [facility] Levofloxacin (Levaquin) 500 Mg Tablet, 500 Mg Oral Lev ofloxacin (Levaquin) 500 Mg Tablet, 500 Mg Oral 2016-06-07 00:00:00 No 500 D aily [facility] Procedures Procedure Date / Time Performed Performing Clinician [facility] e CT of abdomen and pelvis without contrast 2018-11-16 00:00:00 ARIANNE MARTINS [facility] US abdomen complete 2018-10-24 00:00:00 ESA REYEZ [facility] Computed tomography of brain without radiopaque contrast 201 06-06-17 00:00:00 JOSE HENRY [facility] X-ray of chest, two views 2018-10-22 00:00:00 JOSE HENRY I [facility] Plan of Care Planned Activity Planned Date Details Comments Source Future Scheduled Test 2020-05-06 00:00:00 INFLUENZA VACCINE [code = INFLUENZA VACCINE] [facility] Future Scheduled Test 2016-12-29 00:00:00 65+ PNEUMOCOCCAL V ACCINE (1 of 2 - PCV13) [code = 65+ PNEUMOCOCCAL VACCINE (1 of 2 - PCV13)] [facility] Scheduled Test 2001-12-29 00:00:00 BREAST CANCER SCRE ENING [code = BREAST CANCER SCREENING] [facility] Future Scheduled Test 2001-12-29 00:00:00 COLONOSCOPY SCREEN ING [code = COLONOSCOPY SCREENING] [facility] Future Scheduled Test 2001-12-29 00:00:00 SHINGLES VACCINES (#1) [code = SHINGLES VACCINES (#1)] [facility] Encounters Start Date/Time End Date/Time [facility] Source 2018-11-16 22:34:00 2018-11-19 11:57:00 Discharged Inpatient (obs) [address] [facility] [id number] [facility] 2018-10-23 10:30:00 2018-10-26 14:06:00 Discharged Inpatient [address] [facility] [id number] [facility] 2018-01-05 14:53:00 2018-01-05 20:01:00 Departed Emergency Room ER KARLA NICOLAS [facility] [id number] [facility] Results Test Description Test Time Test Comments Results Result Comments Source Sodium Level 2018-11-18 06:53:00 Test Item Sodium Level (test code = 2951-2) 136 136-145 [facility]Pot[facility] Bndln0569-04-64 06:53:00* Test Item Value Reference Range Interpretation Comments Potassium Level (test code = 2823-3) 4.1 3.5-5.1 [facility] SystemChloride Cjufq0731-65-85 06:53:00* Test Item Value Reference Range Interpretation Comments Chloride Level (test code = 2075-0) 102 98-107 [facility] SystemCarbon Dioxide Upwim9849-30-24 06:53:00* Test Item Value Reference Range Interpretation Comments Carbon Dioxide Level (test code = 2028-9) 25 22-29 [facility] SystemAnion [id number] 06:53:00* Test Item Value Reference Range Interpretation Comments Anion Gap (test code = 34332-3) 13.1 8-16 [facility] System[facility] Urea Kvzffzzq1201-35-02 06:53:00* Test Item Value Reference Range Interpretation Comments Blood Urea Nitrogen (test code = 3094-0) 13 7-26 [facility] SystemCreatinine2019-02-13 06:53:00* Test Item Value Reference Range Interpretation Comments Creatinine (test code = 2160-0) 1.55 0.57-1.11 H [facility] SystemBUN/Creatinine Aolqz8372-99-87 06:53:00* Test Item Value Reference Range Interpretation Comments BUN/Creatinine Ratio (test code = 3097-3) 8 6-25 [facility] SystemEstimat Glomerular Filtration Rate 2018-11-18 06:53:00* Test Item Value Reference Range Interpretation Comments Estimat Glomerular Filtration Rate (test code = 463542964) 33 >60 L Ranges were taken from the National Kidney Disease Education Program and the [facility] Kidney Foundation literature.Reference ranges:60 or greater: Zuzvoi21-25 ( for 3 consecutive months): Chronic kidney disease 15 or less: Kidney failureUnited [facility] Healthcare SystemGlucose Zujym1560-26-33 06:53:00* Test Item Value Reference Range Interpretation Comments Glucose Level (test code = UHR8658) 109 74-118 [facility] SystemCalcium Dpaql8901-92-94 06:53:00* Test Item Value Reference Range Interpretation Comments Calcium Level (test code = 83389-2) 8.8 8.4-10.2 [facility] SystemWhite Blood Dcurz4272-77-95 06:34:00* Test Item Value Reference Range Interpretation Comments White Blood Count (test code = 6690-2) 6.70 4.8-10.8 [facility] SystemRed Blood Wrgtg5132-99-76 06:34:00* Test Item Value Reference Range Interpretation Comments Red Blood Count (test code = 789-8) 4.21 3.6-5.1 [facility] SystemHemoglobin2019-02-13 06:34:00* Test Item Value Reference Range Interpretation Comments Hemoglobin (test code = 67712-9) 12.0 12.0-16.0 [facility] SystemHematocrit2019-02-13 06:34:00* Test Item Value Reference Range Interpretation Comments Hematocrit (test code = 4544-3) 38.9 34.2-44.1 [facility] SystemMean Corpuscular Yhxozv4303-32-03 06:34:00* Test Item Value Reference Range Interpretation Comments Mean Corpuscular Volume (test code = 787-2) 92.4 81-99 [facility] SystemMean Corpuscular Telsuzepua7591-91-77 06:34:00* Test Item Value Reference Range Interpretation Comments Mean Corpuscular Hemoglobin (test code = 785-6) 28.5 28-32 [facility] SystemMean Corpuscular Hemoglobin Concent 2018-11-18 06:34:00* Test Item Value Reference Range Interpretation Comments Mean Corpuscular Hemoglobin Concent (test code = 786-4) 30.8 31-35 L [facility] SystemRed Cell Distribution Xtskz3279-93-00 06:34:00* Test Item Value Reference Range Interpretation Comments Red Cell Distribution Width (test code = 91722-0) 13.8 11.7 -14.4 [facility] SystemPlatelet Isyfu7013-10-78 06:34:00* Test Item Value Reference Range Interpretation Comments Platelet Count (test code = 777-3) 244 140-360 [facility] SystemNeutrophils (%) (Auto)2018-11-18 06:34:00 * Test Item Value Reference Range Interpretation Comments Neutrophils (%) (Auto) (test code = 73127-4) 59.6 38.7-80.0 [facility] SystemLymphocytes (%) (Auto)2018-11-18 06:34:00 * Test Item Value Reference Range Interpretation Comments Lymphocytes (%) (Auto) (test code = 736-9) 22.1 18.0-39.1 [facility] SystemMonocytes (%) (Auto)2018-11-18 06:34:00* Test Item Value Reference Range Interpretation Comments Monocytes (%) (Auto) (test code = 5905-5) 11.8 4.4-11.3 H [facility] SystemEosinophils (%) (Auto)2018-11-18 06:34:00 * Test Item Value Reference Range Interpretation Comments Eosinophils (%) (Auto) (test code = 713-8) 5.1 0.0-6.0 [facility] SystemBasophils (%) (Auto)2018-11-18 06:34:00* Test Item Value Reference Range Interpretation Comments Basophils (%) (Auto) (test code = 706-2) 0.4 0.0-1.0 [facility] SystemIM GRANULOCYTES %2018-11-18 06:34:00* Test Item Value Reference Range Interpretation Comments IM GRANULOCYTES % (test code = IM GRANULOCYTES %) 1.0 0.0- 1.0 [facility] SystemNeutrophils # (Auto)2018-11-18 06:34:00* Test Item Value Reference Range Interpretation Comments Neutrophils # (Auto) (test code = 751-8) 4.0 2.1-6.9 [facility] SystemLymphocytes # (Auto)2018-11-18 06:34:00* Test Item Value Reference Range Interpretation Comments Lymphocytes # (Auto) (test code = 59458-3) 1.5 1.0-3.2 [facility] SystemMonocytes # (Auto)2018-11-18 06:34:00* Test Item Value Reference Range Interpretation Comments Monocytes # (Auto) (test code = 742-7) 0.8 0.2-0.8 [facility] SystemEosinophils # (Auto)2018-11-18 06:34:00* Test Item Value Reference Range Interpretation Comments Eosinophils # (Auto) (test code = 711-2) 0.3 0.0-0.4 [facility] SystemBasophils # (Auto)2018-11-18 06:34:00* Test Item Value Reference Range Interpretation Comments Basophils # (Auto) (test code = 704-7) 0.0 0.0-0.1 [facility] SystemAbsolute Immature Granulocyte (auto 2018-11-18 06:34:00* Test Item Value Reference Range Interpretation Comments Absolute Immature Granulocyte (auto (mauri t code = Absolute Immature Granulocyte (auto) 0.07 0-0.1 [facility] SystemTotal Maliyrvow7328-33-88 08:09:00* Test Item Value Reference Range Interpretation Comments Total Bilirubin (test code = 1975-2) 1.2 0.2-1.2 [facility] SystemAspartate Amino Transf (AST/SGOT) 2018-11-17 08:09:00* Test Item Value Reference Range Interpretation Comments Aspartate Amino Transf (AST/SGOT) (test code = Aspartate Amino Transf (AST/SGOT)) 119 5-34 H [facility] SystemAlanine Aminotransferase (ALT/SGPT) 2018-11-17 08:09:00* Test Item Value Reference Range Interpretation Comments Alanine Aminotransferase (ALT/SGPT) (test code = 1742-6) 75 0-55 H [facility] SystemTotal Aweeuco8764-82-09 08:09:00* Test Item Value Reference Range Interpretation Comments Total Protein (test code = 2885-2) 6.8 6.5-8.1 [facility] SystemAlbumin2019-02-12 08:09:00* Test Item Value Reference Range Interpretation Comments Albumin (test code = 1751-7) 3.0 3.5-5.0 L [facility] SystemGlobulin2019-02-12 08:09:00* Test Item Value Reference Range Interpretation Comments Globulin (test code = 10237-9) 3.8 2.3-3.5 H [facility] SystemAlbumin/Globulin Oduxk8743-14-97 08:09:00 * Test Item Value Reference Range Interpretation Comments Albumin/Globulin Ratio (test code = 1759-0) 0.8 0.8-2.0 [facility] SystemAlkaline Xywtlekligl6953-77-79 08:09:00* Test Item Value Reference Range Interpretation Comments Alkaline Phosphatase (test code = 6768-6) 189 40-150 H [facility] SystemCT ABDOMEN/PELVIS YL0478-15-28 18:35:00 [place] [address] Patient Name: AYESHA DOUGLAS MR #: [id number] : 1950 Age/Sex: 67/F Req #: [id number] Adm Physician: Ordered by: ARIANNE KHAN MD Report #: [id number] Location: ER Room/Bed: Procedure: [id number] CT/ CT ABDOMEN/PELVIS WO Exam Date: 11/16/18 Exam Time: 1800 REPORT STATUS: Signed EXAMI NATION: CT of the abdomen and pelvis without contrast. TECHNIQUE: Helical CT images of the abdomen and pelvis were performed from the lung bases to the lesser trochanters. No intravenous contrast was given per renal stone protoco l. Enteric contrast administered. Coronal and sagittal reformatted images wer e obtained.Dose modulation, iterative reconstruction, and/or weight based adju stment of the mA/kV was utilized to reduce the radiation dose to as low as gloria sonably achievable. COMPARISON: None. CLINICAL HISTORY:Abdominal pain DISCUSSION: ABSENCE OF INTRAVENOUS CONTRAST DECREASES SENSITIVITY FOR D ETECTION OF FOCAL LESIONS AND VASCULAR PATHOLOGY. ABDOMEN/PELVIS: LO WER THORAX: Unremarkable. HEPATOBILIARY:No focal hepatic lesions. No bili chuy ductal dilation. Cholecystectomy. SPLEEN: No splenomegaly. PANCR EAS: No focal masses or ductal dilatation. ADRENALS: Right adrenal gland un remarkable. Left adrenal adenoma 1.9 cm. KIDNEYS/URETERS: Atrophy of the ri ght kidney. The left kidney normal. PELVIC ORGANS/BLADDER: The bladder is n ormal. PERITONEUM/RETROPERITONEUM: No free air or fluid. LYMPH NODES : No intra-abdominal,retroperitoneal, pelvic or inguinal lymphadenopathy. VESSELS: Vascular calcifications. GI TRACT: No distention or wall thickeni ng. Colonic diverticulosis mild stranding adjacent to the descending colon. BONES AND SOFT TISSUES: No bony destructive lesions. No soft tissue abnorm alities. IMPRESSION: Colonic diverticulosis with inflammatory farfan e adjacent to the descending colon may reflect mild uncomplicated diverticulit is. Signed by: Dr. Kristin Carlton M.D. on 11/16/2018 6:40 PM Dictate d By: KRISTIN CARLTON MD 39 COPY TO: JEREMY KHAN RD, MD Urine [id number] 15:43:00* Test Item Value Reference Range Interpretation Comments Urine Color (test code = 5778-6) YELLOW YELLOW [facility] SystemU[facility] Geipusd6104-99-04 15:43:00* Test Item Value Reference Range Interpretation Comments Urine Clarity (test code = 79311-9) HAZY CLEAR [facility] SystemUrine Specific Lsratkg9775-44-37 15:43:00 * Test Item Value Reference Range Interpretation Comments Urine Specific [place] (test code = 5811-5) 1.005 1.010-1.02 5 L [facility] SystemUrine [id number] 15:43:00* Test Item Value Reference Range Interpretation Comments Urine pH (test code = 46444-2) 6.5 5-7 [facility] SystemU[facility] Leukocyte Ucyjjgkf4894-38-97 15:43:00* Test Item Value Reference Range Interpretation Comments Urine Leukocyte Esterase (test code = 5799-2) NEGATIVE NEGATIVE [facility] SystemU[facility] Thtnsfq9027-36-75 15:43:00* Test Item Value Reference Range Interpretation Comments Urine Nitrite (test code = 76065-4) NEGATIVE NEGATIVE [facility] SystemU[facility] Nrjqooj6346-96-92 15:43:00* Test Item Value Reference Range Interpretation Comments Urine Protein (test code = 5804-0) TRACE NEGATIVE H [facility] SystemUrine Glucose (UA)2018-11-16 15:43:00* Test Item Value Reference Range Interpretation Comments Urine Glucose (UA) (test code = 2349-9) NEGATIVE NEGATIVE [facility] SystemU[facility] Ufdkrnv6995-46-63 15:43:00* Test Item Value Reference Range Interpretation Comments Urine Ketones (test code = 37233-9) NEGATIVE NEGATIVE [facility] Vuwryiogsylq1403-74-18 15:43:00* Test Item Value Reference Range Interpretation Comments Urine Urobilinogen (test code = 12217-0) 0.2 0.2-1 [facility] SystemU[facility] Toijguixf6528-99-79 15:43:00* Test Item Value Reference Range Interpretation Comments Urine Bilirubin (test code = 1978-6) NEGATIVE NEGATIVE [facility] SystemU[facility] Dunin3999-14-35 15:43:00* Test Item Value Reference Range Interpretation Comments Urine Blood (test code = 32682-7) NEGATIVE NEGATIVE [facility] SystemU[facility] [id number] 15:43:00* Test Item Value Reference Range Interpretation Comments Urine WBC (test code = 5821-4) 0-5 0-5 [facility] KDV5950-46-95 15:43:00* Test Item Value Reference Range Interpretation Comments Urine RBC (test code = 31509-8) NONE 0-5 [facility] SystemU[facility] Iwwcdsll9057-10-19 15:43:00* Test Item Value Reference Range Interpretation Comments Urine Bacteria (test code = 80367-0) FEW NONE [facility] SystemU[facility] Epithelial Pkzdq9120-92-02 15:43:00 * Test Item Value Reference Range Interpretation Comments Urine Epithelial Cells (test code = 57203-5) FEW NONE [facility] SystemU[facility] Zsrmv9190-50-16 15:43:00* Test Item Value Reference Range Interpretation Comments Urine Mucus (test code = 8247-9) FEW RARE H [facility] Systemodium Qbrcs3377-21-62 06:08:00* Test Item Value Reference Range Interpretation Comments Sodium Level (test code = 2951-2) 136 136-145 [facility] SystemPotassium Nanlu2025-50-79 06:08:00* Test Item Value Reference Range Interpretation Comments Potassium Level (test code = 2823-3) 3.5 3.5-5.1 [facility] SystemChloride Wtsjn2831-31-35 06:08:00* Test Item Value Reference Range Interpretation Comments Chloride Level (test code = 2075-0) 98 98-107 [facility] SystemCarbon Dioxide Rwppu5111-73-01 06:08:00* Test Item Value Reference Range Interpretation Comments Carbon Dioxide Level (test code = 2028-9) 25 22-29 [facility] SystemAnion Zkc3308-58-10 06:08:00* Test Item Value Reference Range Interpretation Comments Anion Gap (test code = 04087-0) 16.5 8-16 H [facility] SystemBlood Urea Xwmyxtrn8874-53-92 06:08:00* Test Item Value Reference Range Interpretation Comments Blood Urea Nitrogen (test code = 3094-0) 24 7-26 [facility] SystemCreatinine2019-01-21 06:08:00* Test Item Value Reference Range Interpretation Comments Creatinine (test code = 2160-0) 1.27 0.57-1.11 H [facility] SystemBUN/Creatinine Qeurd6210-60-27 06:08:00* Test Item Value Reference Range Interpretation Comments BUN/Creatinine Ratio (test code = 3097-3) 19 6-25 [facility] SystemEstimat Glomerular Filtration Rate 2018-10-26 06:08:00* Test Item Value Reference Range Interpretation Comments Estimat Glomerular Filtration Rate (test code = 886852101) 42 >60 L Ranges were taken from the National Kidney Disease Education Program and the [facility] literature.Reference ranges:60 or greater: Oggvte41-01 ( for 3 consecutive months): Chronic kidney disease 15 or less: Kidney failureUnited Regional Healthcare SystemGlucose Xanzt2456-14-10 06:08:00* Test Item Value Reference Range Interpretation Comments Glucose Level (test code = YHD1732) 100 74-118 [facility] SystemCalcium Nnjhs9492-93-81 06:08:00* Test Item Value Reference Range Interpretation Comments Calcium Level (test code = 19496-6) 9.7 8.4-10.2 [facility] SystemTotal Bjxchfeek6791-70-04 06:08:00* Test Item Value Reference Range Interpretation Comments Total Bilirubin (test code = 1975-2) 0.5 0.2-1.2 [facility] SystemAspartate Amino Transf (AST/SGOT) 2018-10-26 06:08:00* Test Item Value Reference Range Interpretation Comments Aspartate Amino Transf (AST/SGOT) (test code = Aspartate Amino Transf (AST/SGOT)) 18 5-34 [facility] SystemAlanine Aminotransferase (ALT/SGPT) 2018-10-26 06:08:00* Test Item Value Reference Range Interpretation Comments Alanine Aminotransferase (ALT/SGPT) (test code = 1742-6) 19 0-55 [facility] SystemTotal Zzixqmf4239-74-94 06:08:00* Test Item Value Reference Range Interpretation Comments Total Protein (test code = 2885-2) 7.2 6.5-8.1 [facility] SystemAlbumin2019-01-21 06:08:00* Test Item Value Reference Range Interpretation Comments Albumin (test code = 1751-7) 3.4 3.5-5.0 L [facility] SystemGlobulin2019-01-21 06:08:00* Test Item Value Reference Range Interpretation Comments Globulin (test code = 36155-3) 3.8 2.3-3.5 H [facility] SystemAlbumin/Globulin Xyhqf9633-87-66 06:08:00 * Test Item Value Reference Range Interpretation Comments Albumin/Globulin Ratio (test code = 1759-0) 0.9 0.8-2.0 [facility] SystemAlkaline Vrihchxygvc0189-61-57 06:08:00* Test Item Value Reference Range Interpretation Comments Alkaline Phosphatase (test code = 6768-6) 89 40-150 [facility] SystemWhite Blood Bdkza7649-88-26 06:01:00* Test Item Value Reference Range Interpretation Comments White Blood Count (test code = 6690-2) 12.83 4.8-10.8 H [facility] SystemRed Blood Uhhua2634-21-53 06:01:00* Test Item Value Reference Range Interpretation Comments Red Blood Count (test code = 789-8) 4.51 3.6-5.1 [facility] SystemHemoglobin2019-01-21 06:01:00* Test Item Value Reference Range Interpretation Comments Hemoglobin (test code = 39601-5) 13.6 12.0-16.0 [facility] SystemHematocrit2019-01-21 06:01:00* Test Item Value Reference Range Interpretation Comments Hematocrit (test code = 4544-3) 40.4 34.2-44.1 [facility] SystemMean Corpuscular Xvplar9634-88-49 06:01:00* Test Item Value Reference Range Interpretation Comments Mean Corpuscular Volume (test code = 787-2) 89.6 81-99 [facility] SystemMean Corpuscular Sheaqrbnvo9984-21-16 06:01:00* Test Item Value Reference Range Interpretation Comments Mean Corpuscular Hemoglobin (test code = 785-6) 30.2 28-32 [facility] SystemMean Corpuscular Hemoglobin Concent 2018-10-26 06:01:00* Test Item Value Reference Range Interpretation Comments Mean Corpuscular Hemoglobin Concent (test code = 786-4) 33.7 31-35 [facility] SystemRed Cell Distribution Nzjbk9977-89-24 06:01:00* Test Item Value Reference Range Interpretation Comments Red Cell Distribution Width (test code = 61874-2) 14.0 11.7 -14.4 [facility] SystemPlatelet Xntjp0042-05-88 06:01:00* Test Item Value Reference Range Interpretation Comments Platelet Count (test code = 777-3) 289 140-360 [facility] SystemNeutrophils (%) (Auto)2018-10-26 06:01:00 * Test Item Value Reference Range Interpretation Comments Neutrophils (%) (Auto) (test code = 78403-5) 67.4 38.7-80.0 [facility] SystemLymphocytes (%) (Auto)2018-10-26 06:01:00 * Test Item Value Reference Range Interpretation Comments Lymphocytes (%) (Auto) (test code = 736-9) 19.5 18.0-39.1 [facility] SystemMonocytes (%) (Auto)2018-10-26 06:01:00* Test Item Value Reference Range Interpretation Comments Monocytes (%) (Auto) (test code = 5905-5) 8.3 4.4-11.3 [facility] SystemEosinophils (%) (Auto)2018-10-26 06:01:00 * Test Item Value Reference Range Interpretation Comments Eosinophils (%) (Auto) (test code = 713-8) 3.6 0.0-6.0 [facility] SystemBasophils (%) (Auto)2018-10-26 06:01:00* Test Item Value Reference Range Interpretation Comments Basophils (%) (Auto) (test code = 706-2) 0.4 0.0-1.0 [facility] SystemIM GRANULOCYTES %2018-10-26 06:01:00* Test Item Value Reference Range Interpretation Comments IM GRANULOCYTES % (test code = IM GRANULOCYTES %) 0.8 0.0- 1.0 [facility] SystemNeutrophils # (Auto)2018-10-26 06:01:00* Test Item Value Reference Range Interpretation Comments Neutrophils # (Auto) (test code = 751-8) 8.7 2.1-6.9 H [facility] SystemLymphocytes # (Auto)2018-10-26 06:01:00* Test Item Value Reference Range Interpretation Comments Lymphocytes # (Auto) (test code = 78429-1) 2.5 1.0-3.2 [facility] SystemMonocytes # (Auto)2018-10-26 06:01:00* Test Item Value Reference Range Interpretation Comments Monocytes # (Auto) (test code = 742-7) 1.1 0.2-0.8 H [facility] SystemEosinophils # (Auto)2018-10-26 06:01:00* Test Item Value Reference Range Interpretation Comments Eosinophils # (Auto) (test code = 711-2) 0.5 0.0-0.4 H [facility] SystemBasophils # (Auto)2018-10-26 06:01:00* Test Item Value Reference Range Interpretation Comments Basophils # (Auto) (test code = 704-7) 0.1 0.0-0.1 [facility] SystemAbsolute Immature Granulocyte (auto 2018-10-26 06:01:00* Test Item Value Reference Range Interpretation Comments Absolute Immature Granulocyte (auto (mauri t code = Absolute Immature Granulocyte (auto) 0.10 0-0.1 [facility] SystemUS ABDOMEN MWECTIYK5819-64-59 21:22:00 [facility] [address] [place] [address] Patient Name: AYESHA DOUGLAS MR #: [id number] : 1950 Age/Sex: 67/F Req #: [id number] Adm Physician: ESA REYEZ MD Ordered by: ESA REYEZ MD Report #: [id number] Location: [place] [address] Room/Bed: [facility] Procedure: [id number] US/U S ABDOMEN COMPLETE Exam Date: 10/24/18 Exam Time: REPORT STATUS: Signed EXAM: U S ABDOMEN COMPLETE INDICATION: Headache, hypertension COMPARISON: None TECHNIQUE: Transverse and longitudinal roca scale and color doppler sonographic images of the upper abdomen were obtained. FINDINGS: LIVER 17.1 cm in the right midclavicular line. Normal echogenicity, normal contour, no m asses. SPLEEN 9.2 cm in maximum diameter. Poorly visualized. GALLB LADDER Mild wall thickening secondary to contracted state. Multiple small gall stones. Negative sonographic Valdez's sign. BILE DUCTS No intra nor ext ra-hepatic biliary dilation. Common bile duct measures 0.4 cm PANCREAS: V isualized portions are normal. RIGHT KIDNEY: Unable to evaluate secondary to bowel gas and body habitus. LEFT KIDNEY: 11.5 cm Echogenicity: Normal Collecting System: No hydronephrosis Stones: None Cyst/Mass: Simple cyst measuring 2 cm interpolar region. VESSELS: Aorta: Not well visualized Inferior Vena Cava: Not well visualized Main Portal Vein: 1 cm, normal size w ith hepatopetal flow. FREE FLUID: None IMPRESSION: Cholelithiasis wi thout evidence of acute cholecystitis. Exam limited by bowel gas and body h abitus. Signed by: Dr. Hong Otto M.D. on 10/24/2018 9:28 PM Dictated By: HONG OTTO MD 27 COPY TO: GAURI REYEZ MD Urine RMB5799-54-30 10:34:00* Test Item Value Reference Range Interpretation Comments Urine WBC (test code = 5821-4) 6-10 0-5 H [facility] SystemUrine TMB7742-94-69 10:34:00* Test Item Value Reference Range Interpretation Comments Urine RBC (test code = 89532-3) 0-5 0-5 [facility] SystemUrine Ulrqsfkj9963-41-63 10:34:00* Test Item Value Reference Range Interpretation Comments Urine Bacteria (test code = 03903-4) RARE NONE [facility] SystemUrine Epithelial Yuwor2292-66-91 10:34:00 * Test Item Value Reference Range Interpretation Comments Urine Epithelial Cells (test code = 59735-8) MODERATE NONE [facility] SystemUrine Fine Granular Fxkfh5070-76-02 10:34:00* Test Item Value Reference Range Interpretation Comments Urine Fine Granular Casts (test code = 53824-8) 1-5 >0 H [facility] SystemUrine Fine Granular Qcmwt5553-36-90 10:34:00* Test Item Value Reference Range Interpretation Comments Urine Fine Granular Casts (test code = 24926-7) 1-5 >0 H [facility] SystemUrine Kmtpq7547-51-18 10:23:00* Test Item Value Reference Range Interpretation Comments Urine Color (test code = 5778-6) YELLOW YELLOW [facility] SystemUrine Esvyayp5569-92-42 10:23:00* Test Item Value Reference Range Interpretation Comments Urine Clarity (test code = 74718-4) SL CLOUDY CLEAR [facility] SystemUrine Specific Baoygwq0790-41-28 10:23:00 * Test Item Value Reference Range Interpretation Comments Urine Specific [place] (test code = 5811-5) 1.020 1.010-1.02 5 [facility] SystemUrine oU6370-93-47 10:23:00* Test Item Value Reference Range Interpretation Comments Urine pH (test code = 62297-7) 6 5-7 [facility] SystemUrine Leukocyte Hjqxhtwn2792-58-25 10:23:00* Test Item Value Reference Range Interpretation Comments Urine Leukocyte Esterase (test code = 5799-2) NEGATIVE NEGATIVE [facility] SystemUrine Bwmtpbd7549-94-86 10:23:00* Test Item Value Reference Range Interpretation Comments Urine Nitrite (test code = 29915-1) NEGATIVE NEGATIVE [facility] SystemUrine Xdpyyzk4469-11-54 10:23:00* Test Item Value Reference Range Interpretation Comments Urine Protein (test code = 5804-0) TRACE NEGATIVE H [facility] SystemUrine Glucose (UA)2018-10-23 10:23:00* Test Item Value Reference Range Interpretation Comments Urine Glucose (UA) (test code = 2349-9) NEGATIVE NEGATIVE [facility] SystemUrine Qwhyrfe0940-60-69 10:23:00* Test Item Value Reference Range Interpretation Comments Urine Ketones (test code = 46547-3) NEGATIVE NEGATIVE [facility] SystemUrine Mijrxzftogpk1970-55-86 10:23:00* Test Item Value Reference Range Interpretation Comments Urine Urobilinogen (test code = 54524-7) 0.2 0.2-1 [facility] SystemUrine Dwlljxjxg5665-14-85 10:23:00* Test Item Value Reference Range Interpretation Comments Urine Bilirubin (test code = 1978-6) NEGATIVE NEGATIVE [facility] SystemUrine Pzkgn2354-74-07 10:23:00* Test Item Value Reference Range Interpretation Comments Urine Blood (test code = 96554-0) TRACE NEGATIVE H [facility] SystemTriglycerides Xtrst1373-59-32 06:55:00* Test Item Value Reference Range Interpretation Comments Triglycerides Level (test code = 2571-8) 258 0-149 H [facility] SystemCholesterol Illrr0746-59-05 06:55:00* Test Item Value Reference Range Interpretation Comments Cholesterol Level (test code = 2093-3) 240 0-199 H Less than 200 mg/dL Low Crrm466 - 239 mg/dL Borderline Wzep693 m g/dl and greater High Risk [facility] SystemLDL Bflwkwrwvfw4870-60-30 06:55:00* Test Item Value Reference Range Interpretation Comments LDL Cholesterol (test code = 2089-1) 144 60-130 H [facility] Jhpcxbfhtdx1508-89-56 06:55:00* Test Item Value Reference Range Interpretation Comments HDL Cholesterol (test code = 2085-9) 44 40-60 [facility] SystemCholesterol/HDL Jrohr3138-40-65 06:55:00 * Test Item Value Reference Range Interpretation Comments Cholesterol/HDL Ratio (test code = 9830-1) 5.5 3.0-3.6 H [facility] SystemTriglycerides Jzljv7096-57-03 06:55:00* Test Item Value Reference Range Interpretation Comments Triglycerides Level (test code = 2571-8) 258 0-149 H [facility] SystemCholesterol Vqyjv2509-89-29 06:55:00* Test Item Value Reference Range Interpretation Comments Cholesterol Level (test code = 2093-3) 240 0-199 H Less than 200 mg/dL Low Osjz682 - 239 mg/dL Borderline Ksyl017 m g/dl and greater High Risk [facility] SystemLDL Wkdczxyrfpf5111-22-36 06:55:00* Test Item Value Reference Range Interpretation Comments LDL Cholesterol (test code = 2089-1) 144 60-130 H [facility] Foadvgefqkh3857-89-52 06:55:00* Test Item Value Reference Range Interpretation Comments HDL Cholesterol (test code = 2085-9) 44 40-60 [facility] SystemCholesterol/HDL Ljphg7823-18-10 06:55:00 * Test Item Value Reference Range Interpretation Comments Cholesterol/HDL Ratio (test code = 9830-1) 5.5 3.0-3.6 H [facility] SystemCreatine Dnyncp7308-13-88 18:49:00* Test Item Value Reference Range Interpretation Comments Creatine Kinase (test code = 2157-6) 54 29-168 [facility] Wyckgb1063-75-47 18:49:00* Test Item Value Reference Range Interpretation Comments Creatine Kinase (test code = 2157-6) 54 29-168 [facility] SystemCreatine Kinase LG0932-58-62 18:48:00* Test Item Value Reference Range Interpretation Comments Creatine Kinase MB (test code = 66555-3) 2.30 0-4.3 [facility] SystemTrhendersonville medical centernin Z8306-51-18 18:48:00* Test Item Value Reference Range Interpretation Comments Troponin I (test code = 42617-1) < 0.05 0.0-0.40 [facility]Cre[facility] Kinase AA3377-67-15 18:48:00* Test Item Value Reference Range Interpretation Comments Creatine Kinase MB (test code = 62258-9) 2.30 0-4.3 [place] 52357019-01-17 18:48:00* Test Item Value Reference Range Interpretation Comments Troponin I (test code = 27169-6) < 0.05 0.0-0.40 [facility] SystemProthrombin Qbje8808-71-21 04:52:00* Test Item Value Reference Range Interpretation Comments Prothrombin Time (test code = 5902-2) 12.5 11.9-14.5 [facility] SystemProthromb Time International Ratio 2018-10-22 04:52:00* Test Item Value Reference Range Interpretation Comments Prothromb Time International Ratio (test code = 6301-6) 0.86 Oral Anticoagulant Therapy INR Values:1. Low Intensity Therapy 1.5 - 2.02 . Moderate Intensity Therapy 2.0 - 3.03. High Intensity Therapy(1) 2.5 - 3. 54. High Intensity Therapy(2) 3.0 - 4.05. Panic Value INR > 5.0 [facility] SystemActivated Partial Thromboplast Time 2018-10-22 04:52:00* Test Item Value Reference Range Interpretation Comments Activated Partial Thromboplast Time (test code = 27384-1) 33.9 23.8-35.5 [facility] SystemProthrombin Xwph5181-04-57 04:52:00* Test Item Value Reference Range Interpretation Comments Prothrombin Time (test code = 5902-2) 12.5 11.9-14.5 [facility] SystemProthromb Time International Ratio 2018-10-22 04:52:00* Test Item Value Reference Range Interpretation Comments Prothromb Time International Ratio (test code = 6301-6) 0.86 Oral Anticoagulant Therapy INR Values:1. Low Intensity Therapy 1.5 - 2.02 . Moderate Intensity Therapy 2.0 - 3.03. High Intensity Therapy(1) 2.5 - 3. 54. High Intensity Therapy(2) 3.0 - 4.05. Panic Value INR > 5.0 [facility] SystemActivated Partial Thromboplast Time 2018-10-22 04:52:00* Test Item Value Reference Range Interpretation Comments Activated Partial Thromboplast Time (test code = 18251-1) 33.9 23.8-35.5 [facility] SystemCHEST 2 ZKDJL0627-23-22 04:14:00 [place] [address] Patient Name: AYESHA DOUGLAS MR #: [id number] : 1950 Age/Sex: 67/F Req #: [id number] Adm Physician: Ordered by: JOSE HENRY MD Report #: [id number] Location: ER Room/Bed: Procedure: [id number] DX/CH EST 2 VIEWS Exam Date: 10/22/18 Exam Time: 0255 REPORT STATUS: Signed EXAM: CHEST 2 VIEWS, PA and lateral INDICATION: Cough/hypertension COMPARISON: None F INDINGS: LINES/TUBES: None LUNGS: No consolidations or edema. Mild bibasi lar linear atelectasis/scarring. PLEURA: No effusions or pneumothorax. HEART AND MEDIASTINUM: Normal size and contour. BONES AND SOFT TISSUES: No acute findings. IMPRESSION: No evidence of pneumonia. Signed by: Dr. Hong Otto M.D. on 10/22/2018 4:16 AM Dictated By: HONG OTTO MD 5 Transcr ibed By: SAL on 10/22/18415 COPY TO: JOSE HENRY MD Urine Amorphous Alwyiklk4542-99-22 03:45:00* Test Item Value Reference Range Interpretation Comments Urine Amorphous Sediment (test code = 8246-1) FEW FEW [facility] SystemUrine Amorphous Ovnelnxq7071-76-96 03:45:00* Test Item Value Reference Range Interpretation Comments Urine Amorphous Sediment (test code = 8246-1) FEW FEW [facility] SystemMagnesium Advuk0630-72-76 03:27:00* Test Item Value Reference Range Interpretation Comments Magnesium Level (test code = 90428-2) 2.0 1.3-2.1 [facility] SystemB-Type Natriuretic Adcicsn2577-41-12 03:27:00* Test Item Value Reference Range Interpretation Comments B-Type Natriuretic Peptide (test code = 46513-6) 195.2 0-100 H [facility] SystemMagnesium Vsmwj5971-97-82 03:27:00* Test Item Value Reference Range Interpretation Comments Magnesium Level (test code = 94856-4) 2.0 1.3-2.1 [facility] SystemB-Type Natriuretic Ebiyzcl1204-84-12 03:27:00* Test Item Value Reference Range Interpretation Comments B-Type Natriuretic Peptide (test code = 40129-1) 195.2 0-100 H [facility] SystemErythrocyte Sedimentation Cyhn0707-06-96 03:25:00* Test Item Value Reference Range Interpretation Comments Erythrocyte Sedimentation Rate (test code = 4537-7) 28 0- 20 H [facility] SystemErythrocyte Sedimentation Lnyv9727-76-92 03:25:00* Test Item Value Reference Range Interpretation Comments Erythrocyte Sedimentation Rate (test code = 4537-7) 28 0- 20 H [facility] SystemUrine Transitional Epithelial Cells 2018-10-22 03:08:00* Test Item Value Reference Range Interpretation Comments Urine Transitional Epithelial Cells (test code = 8249-5) FEW NONE H [facility] SystemUrine Transitional Epithelial Cells 2018-10-22 03:08:00* Test Item Value Reference Range Interpretation Comments Urine Transitional Epithelial Cells (test code = 8249-5) FEW NONE H [facility] SystemCT BRAIN ZL8502-29-44 02:59:00 [facility] [address] [place] [address] Patient Name: AYESHA DOUGLAS MR #: [id number] : 1950 Age/Sex: 67/F Req #: [id number] Adm Physician: Ordered by: JOSE HENRY MD Report #: [id number] Location: ER Room/Bed: Procedure: [id number] CT/CT BRAIN WO Exam Date: 10/22/18 Exam Time: 0245 REPORT STATUS: Signed EXAMINATION: Head CT without contrast. HISTORY:Headache, hypertension. COMPARISON :None. TECHNIQUE: Multidetector axial images were obtained from the foramen ma gnum to the vertex without contrast. The images were reconstructed using brain and bone algorithms. Thin section brain images were reformatted into coronal and sagittal planes. Dose modulation, iterative reconstruction, and/or weig ht based adjustment of the mA/kV was utilized to reduce the radiation dose to central cerebral low as reasonably achievable. Intravenous contrast: None IMAGE QUALITY: Acceptable. FINDINGS: Skull/scalp: No lytic or blastic. lesions. No surgical changes. Parenchyma: Nonspecific bilateral frontoparietal patchy white matter hypodensity are likely related to small ve ssel ischemic changes. No acute hemorrhage, mass or acute major vascular sony torial infarct. Arteries: No density suggestive of thrombosis. Atheroscler otic calcification in bilateral carotid siphon. Dural sinuses: No abno rmal density suggestive of thrombosis. Ventricles: Mild ventricular dilat ation, mildly disproportionate to the amount of cerebral volume loss. Ex tra-axial spaces: No abnormal density. Brain volume: Normal for age. Craniocervical junction: No mass, Chiari malformation, or basilar invaginat ion. Sella: No mass. Paranasal/mastoid sinuses: Moderate mucosal th ickening in bilateral sphenoid and left frontal sinus. IMPRESSION: 1. No acute intracranial abnormality, particularly no acute hemorrhage or major vascular territorial infarct. 2. Mild supratentorial white matter micro vascular ischemic changes. 3. Mild ventriculomegaly disproportionate to the amount of cerebral volume loss may be due to selective central cerebral paren chymal volume loss or represent chronic compensated communicating type hydroce phalus in appropriate clinical setting. 4. Moderate mucosal inflammatory changes in bilateral sphenoid and left frontal sinus. Signed by: Dr. Jonathan Hatch M.D. on 10/22/2018 3:04 AM Dictated By: VALE HATCH MD E lectronically Signed By: VALE HATCH MD on 10/22/18303 Transcribed By: ADELINA RIVERA on 10/22/18303 COPY TO: JOSE HENRY MD Sodium Level 2018-01-05 18:54:00* Test Item Value Reference Range Interpretation Comments Sodium Level (test code = 2951-2) 137 136-145 [facility] SystemPotassium Qodnb3078-90-01 18:54:00* Test Item Value Reference Range Interpretation Comments Potassium Level (test code = 2823-3) 5.1 3.5-5.1 [facility] SystemChloride Lzxjj5737-80-13 18:54:00* Test Item Value Reference Range Interpretation Comments Chloride Level (test code = 2075-0) 99 98-107 [facility] SystemCarbon Dioxide Oywky1796-63-16 18:54:00* Test Item Value Reference Range Interpretation Comments Carbon Dioxide Level (test code = 2028-9) 26 22-29 [facility] SystemAnion Kti4292-62-86 18:54:00* Test Item Value Reference Range Interpretation Comments Anion Gap (test code = 59477-1) 17.1 8-16 H [facility] SystemBlood Urea Butngfrk0861-66-88 18:54:00* Test Item Value Reference Range Interpretation Comments Blood Urea Nitrogen (test code = 3094-0) 44 7-26 H [facility] SystemCreatinine2018-04-02 18:54:00* Test Item Value Reference Range Interpretation Comments Creatinine (test code = 2160-0) 2.27 0.57-1.11 H [facility] SystemBUN/Creatinine Rjero8456-65-26 18:54:00* Test Item Value Reference Range Interpretation Comments BUN/Creatinine Ratio (test code = 3097-3) 19 6-25 [facility] SystemEstimat Glomerular Filtration Rate 2018-01-05 18:54:00* Test Item Value Reference Range Interpretation Comments Estimat Glomerular Filtration Rate (test code = 45293-8) 22 >60 L Ranges were taken from the National Kidney Disease Education Program and the [facility] [employer] literature.Reference ranges:60 or greater: Jkchgx25-84 ( for 3 consecutive months): Chronic kidney disease 15 or less: Kidney failureUnited Regional Healthcare SystemGlucose Rissy9813-55-11 18:54:00* Test Item Value Reference Range Interpretation Comments Glucose Level (test code = MQB1475) 133 74-118 H [facility] SystemCalcium Dzdib9134-02-67 18:54:00* Test Item Value Reference Range Interpretation Comments Calcium Level (test code = 96855-0) 10.6 8.4-10.2 H [facility] SystemTotal Tpdzvvybb6922-37-85 18:54:00* Test Item Value Reference Range Interpretation Comments Total Bilirubin (test code = 1975-2) 0.4 0.2-1.2 [facility] SystemAspartate Amino Transf (AST/SGOT) 2018-01-05 18:54:00* Test Item Value Reference Range Interpretation Comments Aspartate Amino Transf (AST/SGOT) (test code = Aspartate Amino Transf (AST/SGOT)) 18 5-34 [facility] SystemAlanine Aminotransferase (ALT/SGPT) 2018-01-05 18:54:00* Test Item Value Reference Range Interpretation Comments Alanine Aminotransferase (ALT/SGPT) (test code = 1742-6) 23 0-55 [facility] SystemTotal Rsokory2661-95-18 18:54:00* Test Item Value Reference Range Interpretation Comments Total Protein (test code = 2885-2) 7.9 6.5-8.1 [facility] SystemAlbumin2018-04-02 18:54:00* Test Item Value Reference Range Interpretation Comments Albumin (test code = 1751-7) 3.8 3.5-5.0 [facility]2018-[facility] 18:54:00* Test Item Value Reference Range Interpretation Comments Globulin (test code = 36274-0) 4.1 2.3-3.5 H [facility] SystemAlbum[facility]/Globulin Vzhuk2717-11-92 18:54:00 * Test Item Value Reference Range Interpretation Comments Albumin/Globulin Ratio (test code = 1759-0) 0.9 0.8-2.0 [facility] SystemAlkaline Azbjrvacsab8135-44-09 18:54:00* Test Item Value Reference Range Interpretation Comments Alkaline Phosphatase (test code = 6768-6) 50 40-150 [facility] SystemWhite Blood Sqwez1077-27-36 18:39:00* Test Item Value Reference Range Interpretation Comments White Blood Count (test code = 6690-2) 11.24 4.8-10.8 H [facility] SystemRed Blood Yndkr2426-78-94 18:39:00* Test Item Value Reference Range Interpretation Comments Red Blood Count (test code = 789-8) 4.32 3.6-5.1 [facility] SystemHemoglobin2018-04-02 18:39:00* Test Item Value Reference Range Interpretation Comments Hemoglobin (test code = 10874-5) 13.2 12.0-16.0 [facility] SystemHematocrit2018-04-02 18:39:00* Test Item Value Reference Range Interpretation Comments Hematocrit (test code = 4544-3) 40.2 34.2-44.1 [facility] SystemMean Corpuscular Vwlnge1202-05-41 18:39:00* Test Item Value Reference Range Interpretation Comments Mean Corpuscular Volume (test code = 787-2) 93.1 81-99 [facility] SystemMean Corpuscular Allpjfyoye5820-07-69 18:39:00* Test Item Value Reference Range Interpretation Comments Mean Corpuscular Hemoglobin (test code = 785-6) 30.6 28-32 [facility] SystemMean Corpuscular Hemoglobin Concent 2018-01-05 18:39:00* Test Item Value Reference Range Interpretation Comments Mean Corpuscular Hemoglobin Concent (test code = 786-4) 32.8 31-35 [facility] SystemRed Cell Distribution Tzqcx6051-67-99 18:39:00* Test Item Value Reference Range Interpretation Comments Red Cell Distribution Width (test code = 75531-6) 13.2 11.7 -14.4 [facility] SystemPlatelet Pfhtd4963-15-65 18:39:00* Test Item Value Reference Range Interpretation Comments Platelet Count (test code = 777-3) 382 140-360 H [facility] SystemNeutrophils (%) (Auto)2018-01-05 18:39:00 * Test Item Value Reference Range Interpretation Comments Neutrophils (%) (Auto) (test code = 11901-8) 66.8 38.7-80.0 [facility] SystemLymphocytes (%) (Auto)2018-01-05 18:39:00 * Test Item Value Reference Range Interpretation Comments Lymphocytes (%) (Auto) (test code = 736-9) 21.4 18.0-39.1 [facility] SystemMonocytes (%) (Auto)2018-01-05 18:39:00* Test Item Value Reference Range Interpretation Comments Monocytes (%) (Auto) (test code = 5905-5) 7.6 4.4-11.3 [facility] SystemEosinophils (%) (Auto)2018-01-05 18:39:00 * Test Item Value Reference Range Interpretation Comments Eosinophils (%) (Auto) (test code = 713-8) 3.2 0.0-6.0 [facility] SystemBasophils (%) (Auto)2018-01-05 18:39:00* Test Item Value Reference Range Interpretation Comments Basophils (%) (Auto) (test code = 706-2) 0.4 0.0-1.0 [facility] SystemIM GRANULOCYTES %2018-01-05 18:39:00* Test Item Value Reference Range Interpretation Comments IM GRANULOCYTES % (test code = IM GRANULOCYTES %) 0.6 0.0- 1.0 [facility] SystemNeutrophils # (Auto)2018-01-05 18:39:00* Test Item Value Reference Range Interpretation Comments Neutrophils # (Auto) (test code = 751-8) 7.5 2.1-6.9 H [facility] SystemLymphocytes # (Auto)2018-01-05 18:39:00* Test Item Value Reference Range Interpretation Comments Lymphocytes # (Auto) (test code = 81582-5) 2.4 1.0-3.2 [facility] SystemMonocytes # (Auto)2018-01-05 18:39:00* Test Item Value Reference Range Interpretation Comments Monocytes # (Auto) (test code = 742-7) 0.9 0.2-0.8 H [facility] SystemEosinophils # (Auto)2018-01-05 18:39:00* Test Item Value Reference Range Interpretation Comments Eosinophils # (Auto) (test code = 711-2) 0.4 0.0-0.4 [facility] SystemBasophils # (Auto)2018-01-05 18:39:00* Test Item Value Reference Range Interpretation Comments Basophils # (Auto) (test code = 704-7) 0.1 0.0-0.1 [facility] SystemAbsolute Immature Granulocyte (auto 2018-01-05 18:39:00* Test Item Value Reference Range Interpretation Comments Absolute Immature Granulocyte (auto (mauri t code = Absolute Immature Granulocyte (auto) 0.07 0-0.1 [facility] SystemUrine EOB2651-07-24 15:27:00* Test Item Value Reference Range Interpretation Comments Urine WBC (test code = 5821-4) 11-20 0-5 [facility] [id number] 15:27:00* Test Item Value Reference Range Interpretation Comments Urine RBC (test code = 26022-5) NONE 0-5 [facility] Vzxumlwq5450-16-26 15:27:00* Test Item Value Reference Range Interpretation Comments Urine Bacteria (test code = 85871-3) NONE NONE [facility] System[facility] Epithelial Jrdym3771-47-33 15:27:00 * Test Item Value Reference Range Interpretation Comments Urine Epithelial Cells (test code = 01112-8) MODERATE NONE [facility] SystemU[facility] Transitional Epithelial Cells 2018-01-05 15:27:00* Test Item Value Reference Range Interpretation Comments Urine Transitional Epithelial Cells (test code = 8249-5) FEW NONE H [facility] SystemU[facility] Renal Epithelial Pchai6325-71-93 15:27:00* Test Item Value Reference Range Interpretation Comments Urine Renal Epithelial Cells (test code = 47290-1) FEW NON E H [facility] SystemU[facility] Renal Epithelial Hbaaj3649-46-03 15:27:00* Test Item Value Reference Range Interpretation Comments Urine Renal Epithelial Cells (test code = 58835-2) FEW NON E H [facility] SystemU[facility] Splxu0257-98-11 15:12:00* Test Item Value Reference Range Interpretation Comments Urine Color (test code = 5778-6) YELLOW YELLOW [facility] SystemU[facility] Xsrfryv8011-36-77 15:12:00* Test Item Value Reference Range Interpretation Comments Urine Clarity (test code = 64616-9) SL CLOUDY CLEAR [facility] SystemU[facility] Specific Thkavrc1929-19-43 15:12:00 * Test Item Value Reference Range Interpretation Comments Urine Specific [place] (test code = 5811-5) 1.010 1.010-1.02 5 [facility] SystemU[facility] pI1405-44-40 15:12:00* Test Item Value Reference Range Interpretation Comments Urine pH (test code = 15282-4) 5 5-7 [facility] System[facility] Leukocyte Fssgrpxz0060-85-55 15:12:00* Test Item Value Reference Range Interpretation Comments Urine Leukocyte Esterase (test code = 5799-2) 2+ NEGATIVE [facility] Azhaowm0545-10-95 15:12:00* Test Item Value Reference Range Interpretation Comments Urine Nitrite (test code = 05589-4) NEGATIVE NEGATIVE [facility] Jeqbnom7200-67-29 15:12:00* Test Item Value Reference Range Interpretation Comments Urine Protein (test code = 5804-0) TRACE NEGATIVE H [facility] Glucose (UA)2018-01-05 15:12:00* Test Item Value Reference Range Interpretation Comments Urine Glucose (UA) (test code = 2349-9) NEGATIVE NEGATIVE [facility] System[facility] Rhpyxgn1780-34-57 15:12:00* Test Item Value Reference Range Interpretation Comments Urine Ketones (test code = 03236-9) NEGATIVE NEGATIVE [facility] Wvzfhybqggrj5154-23-35 15:12:00* Test Item Value Reference Range Interpretation Comments Urine Urobilinogen (test code = 77570-4) 0.2 0.2-1 [facility] System[facility] Kptoxobpz5018-16-18 15:12:00* Test Item Value Reference Range Interpretation Comments Urine Bilirubin (test code = 1978-6) NEGATIVE NEGATIVE [facility] Elwxe7976-94-47 15:12:00* Test Item Value Reference Range Interpretation Comments Urine Blood (test code = 54504-2) NEGATIVE NEGATIVE [facility] SystemRIBS BILAT W/CXR [place] [id number] [place] [address] Patient Name: AYESHA DOUGLAS MR #: [id number] : 1950 Age/Sex: 67/F Req #: [id number] Adm Physician: Ordered by: NICOLAS ACOSTA MD Report #: [id number] Location: ER Room/Bed: Procedure: [id number] DX/RIBS BILAT W/CXR Exam Date : 01/05/18 Exam Time: 1520 REPORT STATUS: Ny d PROCEDURE: X-RAY BILATERAL RIBS WITH CHEST XRAY COMPARISON: None. INDICATIONS: COUGH WITH FLANK AND RIB PAIN FINDINGS: BONES: Normal mineralization. No acute fracture or dislocation. Joint spaces are within normal limits. Degenerative changes of the thoracic spine. SOFT TISSUES: Negative. OTHER: Bibasilar linear atelectasis. Scalloping of the right hemidiaphragm. No focal consolidations. No pleural effusion or pneu mothorax. CONCLUSION: No displaced rib fractures. Bibasilar line ar atelectasis. Mary Ellen Weaver M.D. Dictated by: Mary Ellen Weaver M.D. on 01/05/2018 at 17:25 Electronically approved by: Mary Ellen Weaver M.D. on 01/05/2018 at 17:25 Dictated By: HERNESTO WEAVER MD, MD 17 25 Transcribed By: EVELYNE on 01/05/18 5388 COPY TO: NICOLAS ACOSTA MD
--- OUTSIDE RECORDS SUMMARY | 2020-03-04 22:38 | XMS REPORT | Clinical Summary ---
Author Author [employer] [employer] [facility] [place] [facility] Address Unknown Phone Unavailable Care Team Providers Care Registered Travel Nurse Name Role Phone Asked, No Pcp PCP [...] Last Done Comments BREAST CANCER SCREENING 12/29/2001 COLONOSCOPY SCREENING 12/29/2001 SHINGLES VACCINES (#1) 12/29/2001 65+ PNEUMOCOCCAL VACCINE 12/29/2016 (1 of 2 - PCV13) INFLUENZA VACCINE 05/06/2020 Results Not on fileafter 03/04/2019 Insurance Type Payer Benefit Subscriber ID Effective Phone Address Plan / Dates Group Exchange BCBS EXCHANGE BLUE xxxxxxxxxxxx 2015-P ADVANTAGE resent HMO EXCH Advance Directives For more information, please contact: [phone] 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
[2020-03-04 23:26] LABS: BASOPHILS # (AUTO) 0.1 (0.0-0.1); BASOPHILS % 0.4 % (0.0-1.0); EOSINOPHILS # (AUTO) 0.4 (0.0-0.4); EOSINOPHILS % 2.8 % (0.0-6.0); HEMATOCRIT 42.3 % (34.2-44.1); HEMOGLOBIN 13.4 g/dL (12.0-16.0); LYMPHOCYTES # (AUTO) 2.8 (1.0-3.2); LYMPHOCYTES % 21.7 % (18.0-39.1); MEAN CORPUSCULAR HEMOGLOBIN 27.9 pg (28-32); MEAN CORPUSCULAR HGB CONC 31.7 g/dL (31-35); MEAN CORPUSCULAR VOLUME 88.1 fL (81-99); MONOCYTES # (AUTO) 0.9 (0.2-0.8); MONOCYTES % 6.8 % (4.4-11.3); NEUTROPHILS # (AUTO) 8.8 (2.1-6.9); NEUTROPHILS % 67.7 % (38.7-80.0); PLATELET COUNT 338 x10e3/uL (140-360); RED CELL DISTRIBUTION WIDTH 14.3 % (11.7-14.4)
[2020-03-04 23:46] LABS: INR 0.87; PROTHROMBIN TIME 12.3 seconds (11.9-14.5)
[2020-03-04 23:55] LABS: ALANINE AMINOTRANSFERASE 21 IU/L (0-55); ALBUMIN 3.6 g/dL (3.5-5.0); ALBUMIN/GLOBULIN RATIO 0.9 (0.8-2.0); ALKALINE PHOSPHATASE 104 IU/L (40-150); ANION GAP 16.2 mmol/L (8-16); BLOOD UREA NITROGEN 28 mg/dL (7-26); BUN/CREATININE RATIO 16 (6-25); CALCIUM 9.8 mg/dL (8.4-10.2); CARBON DIOXIDE 22 mmol/L (22-29); CHLORIDE 102 mmol/L (98-107); CREATINE KINASE 185 IU/L (29-168); EST GLOMERULAR FILTRATION RATE 28 ML/MIN (60-); GLUCOSE 108 mg/dL (74-118); POTASSIUM 4.2 mmol/L (3.5-5.1); SODIUM 136 mmol/L (136-145)
[2020-03-05] MEDS ORDERED: SODIUM CHLORIDE 0.9% 1000ML 1,000 ML IV STA (00:37)
--- NOTE | 2020-03-05 02:39 | Emergency Department Note ---
History of Present Illnes History of Present Illness Chief Complaint: Extremity Trauma/Pain History of Present Illness This is a 69 year old female arrives to the ED with complaints of left toe pain for about a week. Patient states she noticed her toes turning purple and feeling colder and more painful. Patient states symptoms started slowly and gradually worsens denies any other symptoms. Chief Complaint Comment 69 Y/O FEMALE PT AAOX3 PRESENTS TO ED WITH DISCOLORATION TO TO LEFT TOES AND BOTTOM OF LEFT FOOT X1 WEEK; FOOT IS COOL TO TOUCH, PULSE PRESENT, YET FAINT; V/S/S; 20 GAUGE IV CATH PLACED TO PTS RIGHT AC, BLOOD OBTAINED FOR LAB ANALYSIS; ER MD TO TRIAGE FOR INITIAL EVAL . Historian: Patient Arrival Mode: Car Past Medical/Family History Physician Review I have reviewed the patient's past medical and family history. Any updates have been documented here. Past Medical History Recent Fever: No Clinical Suspicion of Infectio: No New/Unexplained Change in Ment: No Past Medical History: Hypertension, CVA, Cancer, Depression, Hyperlipedemia, Chronic Kidney Disease, Chronic Back Pain Other Medical History: SCIATICA MEDICAL HISTORY RECALLED FROM PREVIOUS ADMISSION. NO CHANGES PER PT. Past Surgical History: Cholecysctectomy, Appendectomy, Hysterectomy Other Surgery: Hand surgery HYST GB APPY Family History Family history of heart diseas: Yes Other Last Tetanus: <10 YRS Review of Systems Review of Systems Constitutional: no symptoms EENTM: no symptoms Cardiovascular: no symptoms Respiratory: no symptoms Gastrointestinal: no symptoms Genitourinary: no symptoms Musculoskeletal: as per HPI, joint pain, joint swelling Neurological: no symptoms Psychological: no symptoms Endocrine: no symptoms Hematological/Lymphatic: no symptoms Review of other systems All other systems reviewed and negative. Physical Exam Related Data Allergies: Coded Allergies: amoxicillin (Verified Allergy, Intermediate, DIARRHEA, 11/16/18) Sulfa (Sulfonamide Antibiotics) (Verified Allergy, Unknown, HIVES,VOMITING, 11/16/18) morphine (Verified Allergy, Unknown, HIVES, 11/18/18) Triage Vital Signs Vital Signs Date Time Temp Pulse Resp B/P (MAP) Pulse Ox O2 Delivery O2 Flow Rate FiO2 03/04/20 23:01 98.2 84 16 136/73 99 Vital signs reviewed: Yes Physical Exam CONSTITUTIONAL Constitutional: well-developed, well-nourished HENT HENT: normocephalic, atraumatic, oropharynx clear/moist, nose normal HENT L/R: left ext ear normal, right ext ear normal EYES Eyes: PERRL, conjunctivae normal NECK Neck: ROM normal PULMONARY Pulmonary: effort normal, breath sounds normal CARDIOVASCULAR Cardiovascular: regular rhythm, heart sounds normal, capillary refill normal, normal rate GASTROINTESTINAL Abdominal: soft, nontender, bowel sounds normal GENITOURINARY Genitourinary: exam deferred SKIN MUSCULOSKELETAL Musculoskeletal: other (left distal digit is noted to be ecchymotic, extremity cool to touch, pulses palpable DP/PT, however, faint) NEUROLOGICAL Neurological: alert, oriented x 3, no gross motor or sensory deficits PSYCHOLOGICAL Psychological: mood/affect normal, judgement normal Results Laboratory Result Diagram: 03/04/20230903/04/202309 Laboratory Laboratory Tests Test 03/04/20 23:10 White Blood Count 13.06 x10e3/uL (4.8-10.8) Red Blood Count 4.80 x10e6/uL (3.6-5.1) Hemoglobin 13.4 g/dL (12.0-16.0) Hematocrit 42.3 % (34.2-44.1) Mean Corpuscular Volume 88.1 fL (81-99) Mean Corpuscular Hemoglobin 27.9 pg (28-32) Mean Corpuscular Hemoglobin Concent 31.7 g/dL (31-35) Red Cell Distribution Width 14.3 % (11.7-14.4) Platelet Count 338 x10e3/uL (140-360) Neutrophils (%) (Auto) 67.7 % (38.7-80.0) Lymphocytes (%) (Auto) 21.7 % (18.0-39.1) Monocytes (%) (Auto) 6.8 % (4.4-11.3) Eosinophils (%) (Auto) 2.8 % (0.0-6.0) Basophils (%) (Auto) 0.4 % (0.0-1.0) Neutrophils # (Auto) 8.8 (2.1-6.9) Lymphocytes # (Auto) 2.8 (1.0-3.2) Monocytes # (Auto) 0.9 (0.2-0.8) Eosinophils # (Auto) 0.4 (0.0-0.4) Basophils # (Auto) 0.1 (0.0-0.1) Absolute Immature Granulocyte (auto 0.08 x10e3/uL (0-0.1) Prothrombin Time 12.3 seconds (11.9-14.5) Prothromb Time International Ratio 0.87 Sodium Level 136 mmol/L (136-145) Potassium Level 4.2 mmol/L (3.5-5.1) Chloride Level 102 mmol/L (98-107) Carbon Dioxide Level 22 mmol/L (22-29) Anion Gap 16.2 mmol/L (8-16) Blood Urea Nitrogen 28 mg/dL (7-26) Creatinine 1.80 mg/dL (0.57-1.11) Estimat Glomerular Filtration Rate 28 ML/MIN (60-) BUN/Creatinine Ratio 16 (6-25) Glucose Level 108 mg/dL (74-118) Calcium Level 9.8 mg/dL (8.4-10.2) Total Bilirubin 0.5 mg/dL (0.2-1.2) Aspartate Amino Transf (AST/SGOT) 14 IU/L (5-34) Alanine Aminotransferase (ALT/SGPT) 21 IU/L (0-55) Alkaline Phosphatase 104 IU/L (40-150) Creatine Kinase 185 IU/L (29-168) Creatine Kinase MB 2.50 ng/mL (0-4.3) Troponin I < 0.05 ng/mL (0.0-0.40) Total Protein 7.6 g/dL (6.5-8.1) Albumin 3.6 g/dL (3.5-5.0) Globulin 4.0 g/dL (2.3-3.5) Albumin/Globulin Ratio 0.9 (0.8-2.0) Lab results reviewed: Yes Critical Care Time Subsequent provider I assumed direction of critical care for this patient from another provider of my specialty. Assessment & Plan Reassessment Reassessment 61-year-old female brought to the ED with left lower extremity pain and ecchymoses. He said with faint palpable DP/PT pulses. Concerns of acute limb ischemia. Case discussed with Dr. Lee. Patient started on a heparin drip and admitted. Assessment & Plan Final Impression: (1) PAIN IN LEFT LEG (2) CHRONIC TOTAL OCCLUSION OF ARTERY OF THE EXTREMITIES Assessment & Plan CBC, CMP, cardiology consult Last Vital Signs Date Time Temp Pulse Resp B/P (MAP) Pulse Ox O2 Delivery O2 Flow Rate FiO2 03/04/20 23:01 98.2 84 16 136/73 99 Home Meds Reported Medications Linaclotide (Linzess) 145 Mcg Capsule, 145 MG PO DAILY 03/05/20 Prednisone (PREDNISONE) 20 Mg Tab, 40 MG PO DAILY for 3 Days, TAB 11/19/18 Tramadol Hcl/Acetaminophen (ULTRACET TABLET) 1 Each Tablet, 37.5 MG PO Q6H PRN for PAIN 10/26/18 Clonidine (CLONIDINE) 1 Each Patch.tdwk, 0.1 MG Q6H for HIGH BLOOD PRESSURE 10/26/18 Losartan Potassium (LOSARTAN POTASSIUM) 50 Mg Tablet, 50 MG PO DAILY 10/26/18 Amlodipine Besylate (AMLODIPINE BESYLATE) 10 Mg Tablet, 10 MG PO DAILY, #30 TAB 10/26/18 Spironolactone (ALDACTONE) 25 Mg Tablet, 50 MG PO DAILY 10/22/18 Furosemide (LASIX) 40 Mg Tablet, 40 MG PO DAILY, #30 TAB 10/22/18 Atenolol (ATENOLOL) 50 Mg Tablet, 50 MG PO DAILY 10/22/18 Clonazepam (CLONAZEPAM) 1 Mg Tablet, 1 MG PO BID PRN for ANXIETY, TAB 10/22/18 Flaxseed (FLAXSEED OIL) 1,000 Mg Capsule, 1000 MG PO HS 10/22/18 Bupropion Hcl (BUPROPION HCL SR) 150 Mg Tablet.er, 150 MG PO HS 05/09/16 Esomeprazole Magnesium (NEXIUM) 40 Mg Capsule.dr, 40 MG PO DAILY PROTONIX THERAPEUTIC SUBSTITUTE FOR NEXIUM PER [facility] 05/09/16 Levothyroxine Sodium (LEVOTHYROXINE SODIUM) 75 Mcg Tablet, 75 MCG PO DAILY, #30 TAB 05/09/16 Gabapentin (GABAPENTIN) 300 Mg Capsule, 300 MG PO DAILY, #60 CAP 05/09/16 Aspirin (ASPIRIN) 81 Mg Tab.chew, 81 MG PO DAILY 05/09/16 Discontinued Reported Medications Metronidazole (FLAGYL) 250 Mg Tablet, 500 MG PO TID for 10 Days 11/19/18 Ciprofloxacin Hcl (CIPRO) 500 Mg Tablet, 500 MG PO BID for 10 Days, #30 TAB 11/19/18 Acetaminophen With Codeine (TYLENOL WITH CODEINE #3 TABLET) 1 Each Tablet, 300 MG PO Q6H PRN for PAIN, TAB 11/19/18 Levofloxacin (LEVAQUIN) 500 Mg Tablet, 500 MG PO DAILY for 7 Days, TAB 10/26/18 Atenolol (ATENOLOL) 100 Mg Tablet, PO DAILY 10/26/18 [Linzess] No Conflict Check, 72 MCG PO Q72D PRN for CONSTIPATION 10/22/18 Flaxseed Oil (FLAXSEED) 1,000 Mg Capsule, 1000 MG PO DAILY 10/22/18 Tramadol Hcl (ULTRAM) 50 Mg Tablet, 50 MG PO Q8H PRN for PAIN, TAB 05/09/16 Medications in the ED Sodium Chloride 1,000 ml @ 0 mls/hr Q0M STAT IV Last administered on 03/05/20at 01:29; Admin Dose 999 MLS/HR; Start 03/05/20 at 00:37; Stop 03/05/20 at 00:38 LEONCIO JAMISON DO March 05, 2020 02:38
[2020-03-05] MEDS ORDERED: HEPARIN 25,000 UNIT 1,400 UNIT in DEXTROSE 5% 250ML 250 ML IV SCH (03:30)
[2020-03-05] MEDS ORDERED: HEPARIN SOD (PORCINE) 5,000 UNIT/ML VIAL IV ONE (03:30)
[2020-03-05] MEDS ORDERED: LINZESS145 MCG PO (03:31)
[2020-03-05] MEDS ORDERED: HEPARIN 25,000 UNIT DRIP IV ONE ×2 (03:49→18:24)
[2020-03-05] MEDS: HEPARIN 25,000 UNIT 25,000 UNIT in DEXTROSE 5% 250ML 250 ML IV SCH (04:00)
[2020-03-05 04:05] LABS: ANION GAP 16.4 mmol/L (8-16); CALCIUM 9.6 mg/dL (8.4-10.2); CREATININE, SERUM 1.81 mg/dL (0.57-1.11); POTASSIUM 5.4 mmol/L (3.5-5.1)
--- NOTE | 2020-03-05 04:24 | Consultation ---
DATE OF CONSULTATION: Cardiology Consultation REASON FOR CONSULTATION: Lower extremity pain. HISTORY OF PRESENT ILLNESS: This is a 69-year-old woman with a history of renal artery stenosis, morbid obesity, diverticulitis, hypertension, aortic valve syndrome, who presented to the emergency department with foot pain. The patient states that her foot over the last couple of weeks has elicited pain with discoloration and a temperature change. Her symptoms are moderate in intensity, worse when her foot is dangling and lying there at rest, associated with a purple discoloration and pain in her toes. The patient was found to have an abnormal arterial Doppler of her lower extremity. REVIEW OF SYSTEMS: A 12-point review of system was conducted, is negative stated as above in the HPI. PAST MEDICAL HISTORY: As stated above in the HPI. PAST SURGICAL HISTORY: Cholecystectomy, appendectomy, hysterectomy. FAMILY HISTORY: Noncontributory to current illness. ALLERGIES: SULFA, AMOXICILLIN, MORPHINE. MEDICATIONS: See medication reconciliation form. SOCIAL HISTORY: No illicit drug, alcohol, or tobacco use. PHYSICAL EXAMINATION: VITAL SIGNS: Temperature 98.2, heart rate is 84, respirations 16, blood pressure is 136/73, oxygen saturation 99% on room air. GENERAL: Well appearing, well built, no apparent distress. Alert and oriented x3. HEENT: Head is normocephalic and atraumatic. Eyes, extraocular muscles are intact. Conjunctivae are clear. NECK: No JVD. No bruits. CARDIOVASCULAR: Regular rate and rhythm. LUNGS: Clear to auscultation. ABDOMEN: Soft, nontender, nondistended. EXTREMITIES: No edema. VASCULAR: Diminished pulses of the left lower extremity. The left lower extremity is mildly cool to touch compared to the right lower extremity; however, it has normal skin color up until the level of the digits. The digits are red. She is able to move, and there is no evidence of loss of sensation. LABORATORY DATA: Reviewed. Creatinine is 1.8. Lower extremity arterial Doppler shows monophasic waveforms throughout the left lower extremity starting with the common femoral artery. IMPRESSION: 1. Peripheral arterial disease. 2. Hypertension. 3. Morbid obesity. 4. Hyperlipidemia. RECOMMENDATIONS: The patient has abnormal pulses in the left lower extremity evidenced by monophasic waveforms on the arterial Doppler. The patient is able to move her extremity and there are no signs of critical limb ischemia. We will start the patient on anticoagulation and obtain a CT angiogram of the lower extremity. We will continue to follow along, and the patient may require intervention. DO FIOR Tadeo/SYLVIA /[id number]
--- NOTE | 2020-03-05 07:50 | NUR ---
CHECKED LEFT FOOT FOR PEDAL PULSES. NONE ABLE TO OBTAIN. TRIED PALPATION AND DOPPLER WITHOUT SUCCESS; HOWEVER DORSAL AND PLANTAR OF FOOT WARM AND PINK EXCEPT TO TOES.
--- NOTE | 2020-03-05 08:47 | NUR ---
NO BREAKFAST TRAY DELIVERED, TRIED CALLING DIETARY MULTIPLE TIMES, NO ANSWER, CHG TRIED, NO ANSWER, CALLED NURSING PROGRAM MANAGER TO NOTIFY AND WILL INVESTIGATE. PT UPDATED.
--- OUTSIDE RECORDS SUMMARY | 2020-03-05 09:19 | XMS REPORT | Clinical Summary ---
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
--- OUTSIDE RECORDS SUMMARY | 2020-03-05 09:20 | XMS REPORT ---
Author Author [facility] t Organization [facility] Address [address] [place] [address] Phone Unavailable Care Team Providers Care Planning Assistant Name Role Phone ELDON STERLING MD PCP Valdo KHAN Attphys Unavailable REYEZRosana HAN Attphys Unavailable KARLAFamilia CERNA Attphys Unavailable REYEZRosana Admphys Unavailable Payers Payer Name Policy Type Policy Number Effective Date Expiration Date [id number]00 [facility] Medicare A & B [id number] 2016 00:00:00 [facility] [employer] Exchange [id number] 2015 00:00:00 [facility] Problems Condition Name Condition Details Condition Category Status Onset Date Resolution Date Last Treatment Date Treating Clinician Comments Source Hypertension Hypertension Disease Active 2016-08-19 00:00:00 Sukhjinder Bassett Hyperlipidemia Hyperlipidemia Disease Active 2016-08-19 00:00:00 Sukhjinder Bassett Chronic kidney disease CKD (chronic kidney disease) Problem Active [facility] Headache Headache Problem Active [facility] Hypertensive urgency Hypertensive urgency Problem Active [facility] Hyponatremia Hyponatremia Problem Active [facility] Diverticulitis of colon with hemorrhage Diverticulitis of co kelly with bleeding Problem Active [facility] Allergies, Adverse Reactions, Alerts Allergy Name Allergy Type Status Severity Reaction(s) Onset Date Inacti ve Date Treating Clinician Comments Source Morphine Allergy to Substance Active HIVES 2018-11-18 00:00:00 [facility] Sulfa (Sulfonamide Antibiotics) Allergy to Substance Active HIVES,VOMITING 2018-11-16 00:00:00 [facility] Amoxicillin Allergy to Substance Active Moderate DIARRHEA 2018-11-16 00 :00:00 [facility] Latex Propensity to adverse reactions to drug [...] 300 MG capsule 2016-08-19 10:20:07 Yes 300mg [id number] Take 300 mg by mouth 3 (three) times a day. Sukhjinder Bassett aspirin (ECOTRIN) 81 MG enteric coated tablet 2016-08-19 10:20:0 7 Yes 81mg QD Take 81 mg by mouth daily. Bulmaro Malaveist verapamil sustained release (CALAN-SR) 180 MG [...] Every 6 Hours as needed for Pain [facility] Amlodipine Besylate 10 Mg Tablet Amlodipine Besylate 10 Mg Tablet Yes 10 Daily [facility] Aspirin 81 Mg Tab.chew Aspirin 81 Mg Tab.chew Yes 81 Daily [facility] Atenolol 50 Mg Tablet Atenolol 50 Mg Tablet Yes 50 Daily [facility] Atenolol 100 Mg Tablet Atenolol 100 Mg Tablet Yes Daily [facility] Bupropion Hcl (Bupropion Hcl Sr) 150 Mg Tablet.er Bupr opion Hcl (Bupropion Hcl Sr) 150 Mg Tablet.er Yes 150 Daily [facility] Ciprofloxacin Hcl (Cipro) 500 Mg Tablet Ciprofloxacin Hcl (C ipro) 500 Mg Tablet Yes 500 Twice A Day [facility] Clonazepam 1 Mg Tablet Clonazepam 1 Mg Tablet Yes 1 Twice A Day as needed for Anxiety [facility] Clonidine 1 Each Patch.tdwk Clonidine 1 Each Patch.tdwk Yes .1 Every 6 Hours for High Blood Pressure [facility] Esomeprazole Magnesium (Nexium) 40 Mg Capsule.dr Lemus prazole Magnesium (Nexium) 40 Mg Capsule. Yes 40 Daily [facility] Flaxseed (Flaxseed Oil) 1,000 Mg Capsule Flaxseed (Fla xseed Oil) 1,000 Mg Capsule Yes [facility] Flaxseed Oil (Flaxseed) 1,000 Mg Capsule Flaxseed Oil (Flaxseed) 1,000 Mg Capsule Yes 1000 Daily [facility] Furosemide (Lasix) 40 Mg Tablet Furosemide (Lasix) 40 Mg Tablet Yes 40 Daily [facility] Gabapentin 300 Mg Capsule Gabapentin 300 Mg Capsule Yes 300 Twice A Day [facility] Levofloxacin (Levaquin) 500 Mg Tablet Levofloxacin (Levaquin) 500 M g Tablet Yes 500 Daily [facility] Levothyroxine Sodium 75 Mcg Tablet Levothyroxine Sodium 75 Mcg Tablet Yes 75 Daily [facility] Linzess Linzess Yes 72 Every 72 Days as needed for Constipation [facility] Losartan Potassium 50 Mg Tablet Losartan Potassium 50 Mg Tablet Yes Daily [facility] Metronidazole (Flagyl) 250 Mg Tablet Metronidazole (Flagyl) 250 Mg Tablet Yes [address] [facility] Prednisone 20 Mg Tab Prednisone 20 Mg Tab Yes 40 Daily [facility] Spironolactone (Aldactone) 25 Mg Tablet Spironolactone (Livermore ctone) 25 Mg Tablet Yes 50 Daily [facility] Tramadol Hcl (Ultram) 50 Mg Tablet Tramadol Hcl (Ultram) 50 Mg Tablet Yes 50 Every 8 Hours as needed for Pain [facility] Tramadol Hcl/Acetaminophen (Ultracet Tablet) 1 Each [place] Tramadol Hcl/Acetaminophen (Ultracet Tablet) 1 Each Tablet Yes 37.5 Every 6 Hours as needed for Pain [facility] Histex Dm , 2 Tsp Oral Histex Dm , 2 Tsp Oral 2018-10-26 00:00:00 No 2 Three Times A Day [facility] Verapamil Hcl (Verapamil Er) 180 Mg Tber, 180 Mg Oral Verapamil Hcl (Verapamil Er) 180 Mg Tber, 180 Mg Oral 2018-10-26 00:00:00 No 180 Bedtime [facility] Fenofibrate 160 Mg Tablet, 160 Mg Oral Fenofibrate 160 Mg Tablet , 160 Mg Oral 2018-10-22 00:00:00 No 160 Daily [facility] Meloxicam (Mobic*) 7.5 Mg Tablet, 7.5 Mg Oral Meloxica m (Mobic*) 7.5 Mg Tablet, 7.5 Mg Oral 2018-10-22 00:00:00 No 7.5 Daily [facility] Olmesartan Med/Amlodipine/Hctz (Tribenzo r 40-10-25 Mg Tablet) 1 Each Tablet, 1 Tab Oral Olmesartan Med/Amlodipine/Hctz (Tribenzo r 40-10-25 Mg Tablet) 1 Each Tablet, 1 Tab Oral 2018-10-22 00:00:00 No 1 Daily [facility] Rosuvastatin Calcium (Crestor) 10 Mg Tab, 20 Mg Oral R osuvastatin Calcium (Crestor) 10 Mg Tab, 20 Mg Oral 2018-10-22 00:00:00 No 20 Daily [facility] Levofloxacin (Levaquin) 500 Mg Tablet, 500 Mg Oral Lev ofloxacin (Levaquin) 500 Mg Tablet, 500 Mg Oral 2016-06-07 00:00:00 No 500 D aily [facility] Procedures Procedure Date / Time Performed Performing Clinician [facility] e CT of abdomen and pelvis without contrast 2018-11-16 00:00:00 ARIANNE MARTINS [facility] US abdomen complete 2018-10-24 00:00:00 ESA REYEZ [facility] Computed tomography of brain without radiopaque contrast 201 06-06-17 00:00:00 JOSE HENRY [facility] X-ray of chest, two views 2018-10-22 00:00:00 JOSE HENRY I [facility] Plan of Care Planned Activity Planned Date Details Comments Source Future Scheduled Test 2020-05-06 00:00:00 INFLUENZA VACCINE [code = INFLUENZA VACCINE] [facility] Future Scheduled Test 2016-12-29 00:00:00 65+ PNEUMOCOCCAL V ACCINE (1 of 2 - PCV13) [code = 65+ PNEUMOCOCCAL VACCINE (1 of 2 - PCV13)] [facility] Scheduled Test 2001-12-29 00:00:00 BREAST CANCER SCRE ENING [code = BREAST CANCER SCREENING] [facility] Future Scheduled Test 2001-12-29 00:00:00 COLONOSCOPY SCREEN ING [code = COLONOSCOPY SCREENING] [facility] Future Scheduled Test 2001-12-29 00:00:00 SHINGLES VACCINES (#1) [code = SHINGLES VACCINES (#1)] [facility] Encounters Start Date/Time End Date/Time [facility] ID Source 2018-11-16 22:34:00 2018-11-19 11:57:00 Discharged Inpatient (obs) 1 ARIANNE KHAN [facility] [id number] [facility] 2018-10-23 10:30:00 2018-10-26 14:06:00 Discharged Inpatient 1 ESA REYEZ [facility] [id number] [facility] 2018-01-05 14:53:00 2018-01-05 20:01:00 Departed Emergency Room ER KARLA NICOLAS [facility] [id number] [facility] Results Test Description Test Time Test Comments Results Result Comments Source Sodium Level 2018-11-18 06:53:00 Test Item Sodium Level (test code = 2951-2) 136 136-145 [facility]Pot[facility] Fzuql8393-97-38 06:53:00* Test Item Value Reference Range Interpretation Comments Potassium Level (test code = 2823-3) 4.1 3.5-5.1 [facility] CenterChloride Ednzc8458-74-05 06:53:00* Test Item Value Reference Range Interpretation Comments Chloride Level (test code = 2075-0) 102 98-107 [facility] CenterCarbon Dioxide Aiuvr5145-30-33 06:53:00* Test Item Value Reference Range Interpretation Comments Carbon Dioxide Level (test code = 2028-9) 25 22-29 [facility] CenterAnion Ukz8135-71-73 06:53:00* Test Item Value Reference Range Interpretation Comments Anion Gap (test code = 23214-6) 13.1 8-16 [facility] CenterBlood Urea Zduwaafh1372-66-39 06:53:00* Test Item Value Reference Range Interpretation Comments Blood Urea Nitrogen (test code = 3094-0) 13 7-26 [facility] CenterCreatinine2019-02-13 06:53:00* Test Item Value Reference Range Interpretation Comments Creatinine (test code = 2160-0) 1.55 0.57-1.11 H [facility] CenterBUN/Creatinine Qvjtg5907-31-36 06:53:00* Test Item Value Reference Range Interpretation Comments BUN/Creatinine Ratio (test code = 3097-3) 8 6-25 [facility] CenterEstimat Glomerular Filtration Rate 2018-11-18 06:53:00* Test Item Value Reference Range Interpretation Comments Estimat Glomerular Filtration Rate (test code = 667618437) 33 >60 L Ranges were taken from the National Kidney Disease Education Program and the [facility] Kidney Foundation literature.Reference ranges:60 or greater: Aalvdd51-76 ( for 3 consecutive months): Chronic kidney disease 15 or less: Kidney failureUniversity Medical CenterGlucose Zgqrh6870-45-88 06:53:00* Test Item Value Reference Range Interpretation Comments Glucose Level (test code = XUN7527) 109 74-118 [facility] CenterCalcium Zzusf2161-15-12 06:53:00* Test Item Value Reference Range Interpretation Comments Calcium Level (test code = 90682-0) 8.8 8.4-10.2 [facility] CenterWhite Blood Jackh2431-08-19 06:34:00* Test Item Value Reference Range Interpretation Comments White Blood Count (test code = 6690-2) 6.70 4.8-10.8 [facility] CenterRed Blood Klplq9456-96-86 06:34:00* Test Item Value Reference Range Interpretation Comments Red Blood Count (test code = 789-8) 4.21 3.6-5.1 [facility] CenterHemoglobin2019-02-13 06:34:00* Test Item Value Reference Range Interpretation Comments Hemoglobin (test code = 43594-1) 12.0 12.0-16.0 [facility] CenterHematocrit2019-02-13 06:34:00* Test Item Value Reference Range Interpretation Comments Hematocrit (test code = 4544-3) 38.9 34.2-44.1 [facility] CenterMean Corpuscular Erpzxo5165-38-76 06:34:00* Test Item Value Reference Range Interpretation Comments Mean Corpuscular Volume (test code = 787-2) 92.4 81-99 [facility] CenterMean Corpuscular Kprcdnrzkz7493-59-17 06:34:00* Test Item Value Reference Range Interpretation Comments Mean Corpuscular Hemoglobin (test code = 785-6) 28.5 28-32 [facility] CenterMean Corpuscular Hemoglobin Concent 2018-11-18 06:34:00* Test Item Value Reference Range Interpretation Comments Mean Corpuscular Hemoglobin Concent (test code = 786-4) 30.8 31-35 L [facility] CenterRed Cell Distribution Ohmmj9824-00-17 06:34:00* Test Item Value Reference Range Interpretation Comments Red Cell Distribution Width (test code = 59262-1) 13.8 11.7 -14.4 [facility] CenterPlatelet Bjndc3872-81-94 06:34:00* Test Item Value Reference Range Interpretation Comments Platelet Count (test code = 777-3) 244 140-360 [facility] CenterNeutrophils (%) (Auto)2018-11-18 06:34:00 * Test Item Value Reference Range Interpretation Comments Neutrophils (%) (Auto) (test code = 42148-6) 59.6 38.7-80.0 [facility] CenterLymphocytes (%) (Auto)2018-11-18 06:34:00 * Test Item Value Reference Range Interpretation Comments Lymphocytes (%) (Auto) (test code = 736-9) 22.1 18.0-39.1 [facility] CenterMonocytes (%) (Auto)2018-11-18 06:34:00* Test Item Value Reference Range Interpretation Comments Monocytes (%) (Auto) (test code = 5905-5) 11.8 4.4-11.3 H [facility] CenterEosinophils (%) (Auto)2018-11-18 06:34:00 * Test Item Value Reference Range Interpretation Comments Eosinophils (%) (Auto) (test code = 713-8) 5.1 0.0-6.0 [facility] CenterBasophils (%) (Auto)2018-11-18 06:34:00* Test Item Value Reference Range Interpretation Comments Basophils (%) (Auto) (test code = 706-2) 0.4 0.0-1.0 [facility] CenterIM GRANULOCYTES %2018-11-18 06:34:00* Test Item Value Reference Range Interpretation Comments IM GRANULOCYTES % (test code = IM GRANULOCYTES %) 1.0 0.0- 1.0 [facility] CenterNeutrophils # (Auto)2018-11-18 06:34:00* Test Item Value Reference Range Interpretation Comments Neutrophils # (Auto) (test code = 751-8) 4.0 2.1-6.9 [facility] CenterLymphocytes # (Auto)2018-11-18 06:34:00* Test Item Value Reference Range Interpretation Comments Lymphocytes # (Auto) (test code = 38321-7) 1.5 1.0-3.2 [facility] CenterMonocytes # (Auto)2018-11-18 06:34:00* Test Item Value Reference Range Interpretation Comments Monocytes # (Auto) (test code = 742-7) 0.8 0.2-0.8 [facility] CenterEosinophils # (Auto)2018-11-18 06:34:00* Test Item Value Reference Range Interpretation Comments Eosinophils # (Auto) (test code = 711-2) 0.3 0.0-0.4 [facility] CenterBasophils # (Auto)2018-11-18 06:34:00* Test Item Value Reference Range Interpretation Comments Basophils # (Auto) (test code = 704-7) 0.0 0.0-0.1 [facility] CenterAbsolute Immature Granulocyte (auto 2018-11-18 06:34:00* Test Item Value Reference Range Interpretation Comments Absolute Immature Granulocyte (auto (mauri t code = Absolute Immature Granulocyte (auto) 0.07 0-0.1 [facility] CenterTotal Lbjixatuf0261-43-20 08:09:00* Test Item Value Reference Range Interpretation Comments Total Bilirubin (test code = 1975-2) 1.2 0.2-1.2 [facility] CenterAspartate Amino Transf (AST/SGOT) 2018-11-17 08:09:00* Test Item Value Reference Range Interpretation Comments Aspartate Amino Transf (AST/SGOT) (test code = Aspartate Amino Transf (AST/SGOT)) 119 5-34 H [facility] CenterAlanine Aminotransferase (ALT/SGPT) 2018-11-17 08:09:00* Test Item Value Reference Range Interpretation Comments Alanine Aminotransferase (ALT/SGPT) (test code = 1742-6) 75 0-55 H [facility] CenterTotal Rglcasz4451-15-94 08:09:00* Test Item Value Reference Range Interpretation Comments Total Protein (test code = 2885-2) 6.8 6.5-8.1 [facility] CenterAlbumin2019-02-12 08:09:00* Test Item Value Reference Range Interpretation Comments Albumin (test code = 1751-7) 3.0 3.5-5.0 L [facility] CenterGlobulin2019-02-12 08:09:00* Test Item Value Reference Range Interpretation Comments Globulin (test code = 77586-0) 3.8 2.3-3.5 H [facility] CenterAlbumin/Globulin Uiraw6502-78-79 08:09:00 * Test Item Value Reference Range Interpretation Comments Albumin/Globulin Ratio (test code = 1759-0) 0.8 0.8-2.0 [facility] CenterAlkaline Vnxbvcznyjp3580-05-56 08:09:00* Test Item Value Reference Range Interpretation Comments Alkaline Phosphatase (test code = 6768-6) 189 40-150 H [facility] CenterCT ABDOMEN/PELVIS OC7321-25-01 18:35:00 [place] [address] Patient Name: AYESHA DOUGLAS MR #: [id number] : 1950 Age/Sex: 67/F Req #: [id number] Adm Physician: Ordered by: ARIANNE KHAN MD Report #: [id number] Location: ER Room/Bed: Procedure: [id number] CT/ CT ABDOMEN/PELVIS WO Exam Date: 11/16/18 [...] COPY TO: JEREMY KHAN RD, MD Urine Salug1617-32-23 15:43:00* Test Item Value Reference Range Interpretation Comments Urine Color (test code = 5778-6) YELLOW YELLOW [facility] CenterUrine Zulqmqj7916-80-45 15:43:00* Test Item Value Reference Range Interpretation Comments Urine Clarity (test code = 30320-6) HAZY CLEAR [facility] CenterUrine Specific Apwvkhi2032-93-24 15:43:00 * Test Item Value Reference Range Interpretation Comments Urine Specific Callao (test code = 5811-5) 1.005 1.010-1.02 5 L [facility] CenterUrine cB4816-35-54 15:43:00* Test Item Value Reference Range Interpretation Comments Urine pH (test code = 39941-1) 6.5 5-7 [facility] CenterUrine Leukocyte Jasxyqtz6181-56-00 15:43:00* Test Item Value Reference Range Interpretation Comments Urine Leukocyte Esterase (test code = 5799-2) NEGATIVE NEGATIVE [facility] CenterUrine Nyuyqte4892-88-21 15:43:00* Test Item Value Reference Range Interpretation Comments Urine Nitrite (test code = 46799-2) NEGATIVE NEGATIVE [facility] CenterUrine Myutxns4372-22-51 15:43:00* Test Item Value Reference Range Interpretation Comments Urine Protein (test code = 5804-0) TRACE NEGATIVE H [facility] CenterUrine Glucose (UA)2018-11-16 15:43:00* Test Item Value Reference Range Interpretation Comments Urine Glucose (UA) (test code = 2349-9) NEGATIVE NEGATIVE [facility] CenterUrine Hyalkjv9636-01-54 15:43:00* Test Item Value Reference Range Interpretation Comments Urine Ketones (test code = 62484-8) NEGATIVE NEGATIVE [facility] Kfcisfoorget3126-08-56 15:43:00* Test Item Value Reference Range Interpretation Comments Urine Urobilinogen (test code = 68498-4) 0.2 0.2-1 [facility] CenterUrine Zpafjfvxy7538-86-73 15:43:00* Test Item Value Reference Range Interpretation Comments Urine Bilirubin (test code = 1978-6) NEGATIVE NEGATIVE [facility] CenterUrine Pumvt1732-70-61 15:43:00* Test Item Value Reference Range Interpretation Comments Urine Blood (test code = 28677-7) NEGATIVE NEGATIVE [facility] CenterUrine UEE8902-13-20 15:43:00* Test Item Value Reference Range Interpretation Comments Urine WBC (test code = 5821-4) 0-5 0-5 [facility] KKI3009-07-54 15:43:00* Test Item Value Reference Range Interpretation Comments Urine RBC (test code = 45848-2) NONE 0-5 [facility] CenterUrine Iejmbqyf6482-62-10 15:43:00* Test Item Value Reference Range Interpretation Comments Urine Bacteria (test code = 00012-0) FEW NONE [facility] CenterUrine Epithelial Maczb8808-37-25 15:43:00 * Test Item Value Reference Range Interpretation Comments Urine Epithelial Cells (test code = 92288-2) FEW NONE [facility] CenterUrine Xqsgg9698-06-03 15:43:00* Test Item Value Reference Range Interpretation Comments Urine Mucus (test code = 8247-9) FEW RARE [facility] Henjq0163-78-91 06:08:00* Test Item Value Reference Range Interpretation Comments Sodium Level (test code = 2951-2) 136 136-145 [facility] CenterPotassium Xepup4280-03-06 06:08:00* Test Item Value Reference Range Interpretation Comments Potassium Level (test code = 2823-3) 3.5 3.5-5.1 [facility] CenterChloride Lodwb4494-64-21 06:08:00* Test Item Value Reference Range Interpretation Comments Chloride Level (test code = 2075-0) 98 98-107 [facility] CenterCarbon Dioxide Gsnvu5727-34-63 06:08:00* Test Item Value Reference Range Interpretation Comments Carbon Dioxide Level (test code = 2028-9) 25 22-29 [facility] CenterAnion Sfp4217-50-39 06:08:00* Test Item Value Reference Range Interpretation Comments Anion Gap (test code = 64241-4) 16.5 8-16 H [facility] CenterBlood Urea Nqxoerxl3692-09-57 06:08:00* Test Item Value Reference Range Interpretation Comments Blood Urea Nitrogen (test code = 3094-0) 24 7-26 [facility] CenterCreatinine2019-01-21 06:08:00* Test Item Value Reference Range Interpretation Comments Creatinine (test code = 2160-0) 1.27 0.57-1.11 H [facility] CenterBUN/Creatinine Zsrnr3420-05-25 06:08:00* Test Item Value Reference Range Interpretation Comments BUN/Creatinine Ratio (test code = 3097-3) 19 6-25 [facility] CenterEstimat Glomerular Filtration Rate 2018-10-26 06:08:00* Test Item Value Reference Range Interpretation Comments Estimat Glomerular Filtration Rate (test code = 623173921) 42 >60 L Ranges were taken from the National Kidney Disease Education Program and the [facility] Kid[facility] Foundation literature.Reference ranges:60 or greater: Xxxwvz86-67 ( for 3 consecutive months): Chronic kidney disease 15 or less: Kidney failureUniversity Medical CenterGlucose Lnaeq4755-69-65 06:08:00* Test Item Value Reference Range Interpretation Comments Glucose Level (test code = FMV6665) 100 74-118 [facility] CenterCalcium Iiumx9840-77-16 06:08:00* Test Item Value Reference Range Interpretation Comments Calcium Level (test code = 04849-9) 9.7 8.4-10.2 [facility] CenterTotal Esxcgkxxx5378-37-81 06:08:00* Test Item Value Reference Range Interpretation Comments Total Bilirubin (test code = 1975-2) 0.5 0.2-1.2 [facility] CenterAspartate Amino Transf (AST/SGOT) 2018-10-26 06:08:00* Test Item Value Reference Range Interpretation Comments Aspartate Amino Transf (AST/SGOT) (test code = Aspartate Amino Transf (AST/SGOT)) 18 5-34 [facility] CenterAlanine Aminotransferase (ALT/SGPT) 2018-10-26 06:08:00* Test Item Value Reference Range Interpretation Comments Alanine Aminotransferase (ALT/SGPT) (test code = 1742-6) 19 0-55 [facility] CenterTotal Eyqxkqn2273-21-35 06:08:00* Test Item Value Reference Range Interpretation Comments Total Protein (test code = 2885-2) 7.2 6.5-8.1 [facility] CenterAlbumin2019-01-21 06:08:00* Test Item Value Reference Range Interpretation Comments Albumin (test code = 1751-7) 3.4 3.5-5.0 L [facility] CenterGlobulin2019-01-21 06:08:00* Test Item Value Reference Range Interpretation Comments Globulin (test code = 44541-9) 3.8 2.3-3.5 H [facility] CenterAlbumin/Globulin Avxnq6458-64-43 06:08:00 * Test Item Value Reference Range Interpretation Comments Albumin/Globulin Ratio (test code = 1759-0) 0.9 0.8-2.0 [facility] CenterAlkaline Cxvrlnusgcb3019-24-15 06:08:00* Test Item Value Reference Range Interpretation Comments Alkaline Phosphatase (test code = 6768-6) 89 40-150 [facility] CenterWhite Blood Rfjds8019-81-02 06:01:00* Test Item Value Reference Range Interpretation Comments White Blood Count (test code = 6690-2) 12.83 4.8-10.8 H [facility] CenterRed Blood Akrha3654-79-76 06:01:00* Test Item Value Reference Range Interpretation Comments Red Blood Count (test code = 789-8) 4.51 3.6-5.1 [facility] CenterHemoglobin2019-01-21 06:01:00* Test Item Value Reference Range Interpretation Comments Hemoglobin (test code = 74789-3) 13.6 12.0-16.0 [facility] CenterHematocrit2019-01-21 06:01:00* Test Item Value Reference Range Interpretation Comments Hematocrit (test code = 4544-3) 40.4 34.2-44.1 [facility] CenterMean Corpuscular Mbdmwi0929-62-30 06:01:00* Test Item Value Reference Range Interpretation Comments Mean Corpuscular Volume (test code = 787-2) 89.6 81-99 [facility] CenterMean Corpuscular Aemzbgomxj6849-88-47 06:01:00* Test Item Value Reference Range Interpretation Comments Mean Corpuscular Hemoglobin (test code = 785-6) 30.2 28-32 [facility] CenterMean Corpuscular Hemoglobin Concent 2018-10-26 06:01:00* Test Item Value Reference Range Interpretation Comments Mean Corpuscular Hemoglobin Concent (test code = 786-4) 33.7 31-35 [facility] CenterRed Cell Distribution Somtc7861-30-23 06:01:00* Test Item Value Reference Range Interpretation Comments Red Cell Distribution Width (test code = 24154-4) 14.0 11.7 -14.4 [facility] CenterPlatelet Fcyan9403-76-71 06:01:00* Test Item Value Reference Range Interpretation Comments Platelet Count (test code = 777-3) 289 140-360 [facility] CenterNeutrophils (%) (Auto)2018-10-26 06:01:00 * Test Item Value Reference Range Interpretation Comments Neutrophils (%) (Auto) (test code = 34331-3) 67.4 38.7-80.0 [facility] CenterLymphocytes (%) (Auto)2018-10-26 06:01:00 * Test Item Value Reference Range Interpretation Comments Lymphocytes (%) (Auto) (test code = 736-9) 19.5 18.0-39.1 [facility] CenterMonocytes (%) (Auto)2018-10-26 06:01:00* Test Item Value Reference Range Interpretation Comments Monocytes (%) (Auto) (test code = 5905-5) 8.3 4.4-11.3 [facility] (%) (Auto)2018-10-26 06:01:00 * Test Item Value Reference Range Interpretation Comments Eosinophils (%) (Auto) (test code = 713-8) 3.6 0.0-6.0 [facility]Basophils (%) (Auto)2018-10-26 06:01:00* Test Item Value Reference Range Interpretation Comments Basophils (%) (Auto) (test code = 706-2) 0.4 0.0-1.0 [facility] CenterIM GRANULOCYTES %2018-10-26 06:01:00* Test Item Value Reference Range Interpretation Comments IM GRANULOCYTES % (test code = IM GRANULOCYTES %) 0.8 0.0- 1.0 [facility] CenterNeutrophils # (Auto)2018-10-26 06:01:00* Test Item Value Reference Range Interpretation Comments Neutrophils # (Auto) (test code = 751-8) 8.7 2.1-6.9 H [facility] CenterLymphocytes # (Auto)2018-10-26 06:01:00* Test Item Value Reference Range Interpretation Comments Lymphocytes # (Auto) (test code = 82127-0) 2.5 1.0-3.2 [facility] CenterMonocytes # (Auto)2018-10-26 06:01:00* Test Item Value Reference Range Interpretation Comments Monocytes # (Auto) (test code = 742-7) 1.1 0.2-0.8 H [facility] CenterEosinophils # (Auto)2018-10-26 06:01:00* Test Item Value Reference Range Interpretation Comments Eosinophils # (Auto) (test code = 711-2) 0.5 0.0-0.4 H [facility] CenterBasophils # (Auto)2018-10-26 06:01:00* Test Item Value Reference Range Interpretation Comments Basophils # (Auto) (test code = 704-7) 0.1 0.0-0.1 [facility] CenterAbsolute Immature Granulocyte (auto 2018-10-26 06:01:00* Test Item Value Reference Range Interpretation Comments Absolute Immature Granulocyte (auto (mauri t code = Absolute Immature Granulocyte (auto) 0.10 0-0.1 [facility] CenterUS ABDOMEN EZHZZIHU2162-70-25 21:22:00 [facility] [address] [place] [address] Patient Name: AYESHA DOUGLAS MR #: [id number] : 1950 Age/Sex: 67/F Req #: [id number] Adm Physician: ESA REYEZ MD Ordered by: ESA REYEZ MD Report #: [id number] Location: [place] [address] Room/Bed: [facility] [place] Procedure: [id number] US/U S ABDOMEN COMPLETE Exam Date: 10/24/18 [...] 27 COPY TO: GAURI REYEZ MD Urine [id number] 10:34:00* Test Item Value Reference Range Interpretation Comments Urine WBC (test code = 5821-4) 6-10 0-5 H [facility] CenterUrine HIK7294-84-77 10:34:00* Test Item Value Reference Range Interpretation Comments Urine RBC (test code = 30014-0) 0-5 0-5 [facility] CenterU[facility] Zitzgvue6728-18-18 10:34:00* Test Item Value Reference Range Interpretation Comments Urine Bacteria (test code = 76060-9) RARE NONE [facility] CenterUrine Epithelial Bpngj7568-56-50 10:34:00 * Test Item Value Reference Range Interpretation Comments Urine Epithelial Cells (test code = 54055-9) MODERATE NONE [facility] CenterUrine Fine Granular Udhfi6996-90-41 10:34:00* Test Item Value Reference Range Interpretation Comments Urine Fine Granular Casts (test code = 97632-2) 1-5 >0 H [facility] CenterUrine Fine Granular Lmhyk8663-02-66 10:34:00* Test Item Value Reference Range Interpretation Comments Urine Fine Granular Casts (test code = 09355-5) 1-5 >0 H [facility] CenterUrine Jewfi1869-17-17 10:23:00* Test Item Value Reference Range Interpretation Comments Urine Color (test code = 5778-6) YELLOW YELLOW [facility] CenterUrine Ptmgtvb3844-67-03 10:23:00* Test Item Value Reference Range Interpretation Comments Urine Clarity (test code = 26057-9) SL CLOUDY CLEAR [facility] CenterUrine Specific Qmryqmx4258-99-95 10:23:00 * Test Item Value Reference Range Interpretation Comments Urine Specific Callao (test code = 5811-5) 1.020 1.010-1.02 5 [facility] CenterUrine xR4456-28-81 10:23:00* Test Item Value Reference Range Interpretation Comments Urine pH (test code = 86645-9) 6 5-7 [facility] CenterUrine Leukocyte Jgxxqmlw7113-28-92 10:23:00* Test Item Value Reference Range Interpretation Comments Urine Leukocyte Esterase (test code = 5799-2) NEGATIVE NEGATIVE [facility] CenterUrine Dvhnxow7865-60-01 10:23:00* Test Item Value Reference Range Interpretation Comments Urine Nitrite (test code = 91540-6) NEGATIVE NEGATIVE [facility] CenterUrine Xkexitx2427-40-12 10:23:00* Test Item Value Reference Range Interpretation Comments Urine Protein (test code = 5804-0) TRACE NEGATIVE H [facility] CenterUrine Glucose (UA)2018-10-23 10:23:00* Test Item Value Reference Range Interpretation Comments Urine Glucose (UA) (test code = 2349-9) NEGATIVE NEGATIVE [facility] CenterUrine Dzvcosc8267-86-24 10:23:00* Test Item Value Reference Range Interpretation Comments Urine Ketones (test code = 58783-3) NEGATIVE NEGATIVE [facility] CenterUrine Zxapcrmkcipl2763-08-81 10:23:00* Test Item Value Reference Range Interpretation Comments Urine Urobilinogen (test code = 43324-2) 0.2 0.2-1 [facility] CenterUrine Nunhuqjxb4763-51-56 10:23:00* Test Item Value Reference Range Interpretation Comments Urine Bilirubin (test code = 1978-6) NEGATIVE NEGATIVE [facility] CenterUrine Ujtnn2963-59-89 10:23:00* Test Item Value Reference Range Interpretation Comments Urine Blood (test code = 80679-7) TRACE NEGATIVE H [facility] CenterTriglycerides Ntlyz7537-40-95 06:55:00* Test Item Value Reference Range Interpretation Comments Triglycerides Level (test code = 2571-8) 258 0-149 H [facility] CenterCholesterol Jjcdy3724-16-12 06:55:00* Test Item Value Reference Range Interpretation Comments Cholesterol Level (test code = 2093-3) 240 0-199 H Less than 200 mg/dL Low Ztpi432 - 239 mg/dL Borderline Opeh563 m g/dl and greater High Risk [facility] CenterLDL Miizetoppcf1069-23-58 06:55:00* Test Item Value Reference Range Interpretation Comments LDL Cholesterol (test code = 2089-1) 144 60-130 H [facility] Ywfzldsmwcn9602-74-12 06:55:00* Test Item Value Reference Range Interpretation Comments HDL Cholesterol (test code = 2085-9) 44 40-60 [facility] CenterCholesterol/HDL Eltlo8202-93-58 06:55:00 * Test Item Value Reference Range Interpretation Comments Cholesterol/HDL Ratio (test code = 9830-1) 5.5 3.0-3.6 H [facility] CenterTriglycerides Zsnfo9083-52-05 06:55:00* Test Item Value Reference Range Interpretation Comments Triglycerides Level (test code = 2571-8) 258 0-149 H [facility] CenterCholesterol Ollqh5526-75-08 06:55:00* Test Item Value Reference Range Interpretation Comments Cholesterol Level (test code = 2093-3) 240 0-199 H Less than 200 mg/dL Low Xomi182 - 239 mg/dL Borderline Ingp887 m g/dl and greater High Risk [facility] CenterLDL Mfwllgfsxeq9070-24-81 06:55:00* Test Item Value Reference Range Interpretation Comments LDL Cholesterol (test code = 2089-1) 144 60-130 H [facility] Lzxcnojfsnw2823-98-10 06:55:00* Test Item Value Reference Range Interpretation Comments HDL Cholesterol (test code = 2085-9) 44 40-60 [facility] CenterCholesterol/HDL Ousoo4529-39-82 06:55:00 * Test Item Value Reference Range Interpretation Comments Cholesterol/HDL Ratio (test code = 9830-1) 5.5 3.0-3.6 H [facility] CenterCreatine Mdeoxg0304-37-89 18:49:00* Test Item Value Reference Range Interpretation Comments Creatine Kinase (test code = 2157-6) 54 29-168 [facility] [place] Xnruln4460-14-45 18:49:00* Test Item Value Reference Range Interpretation Comments Creatine Kinase (test code = 2157-6) 54 29-168 [facility] CenterCreatine Kinase GE0008-17-64 18:48:00* Test Item Value Reference Range Interpretation Comments Creatine Kinase MB (test code = 96806-0) 2.30 0-4.3 [facility] CenterTrun[facility] medical centernin L8593-62-21 18:48:00* Test Item Value Reference Range Interpretation Comments Troponin I (test code = 91595-9) < 0.05 0.0-0.40 [facility] [place] Kinase NH0201-59-09 18:48:00* Test Item Value Reference Range Interpretation Comments Creatine Kinase MB (test code = 98340-8) 2.30 0-4.3 [place] 57373019-01-17 18:48:00* Test Item Value Reference Range Interpretation Comments Troponin I (test code = 97900-3) < 0.05 0.0-0.40 [facility] CenterProthrombin Gxgx7364-11-83 04:52:00* Test Item Value Reference Range Interpretation Comments Prothrombin Time (test code = 5902-2) 12.5 11.9-14.5 [facility] CenterProthromb Time International Ratio 2018-10-22 04:52:00* Test Item Value Reference Range Interpretation Comments Prothromb Time International Ratio (test code = 6301-6) 0.86 Oral Anticoagulant Therapy INR Values:1. Low Intensity Therapy 1.5 - 2.02 . Moderate Intensity Therapy 2.0 - 3.03. High Intensity Therapy(1) 2.5 - 3. 54. High Intensity Therapy(2) 3.0 - 4.05. Panic Value INR > 5.0 [facility] CenterActivated Partial Thromboplast Time 2018-10-22 04:52:00* Test Item Value Reference Range Interpretation Comments Activated Partial Thromboplast Time (test code = 15894-9) 33.9 23.8-35.5 [facility] CenterProthrombin Qddr4495-20-85 04:52:00* Test Item Value Reference Range Interpretation Comments Prothrombin Time (test code = 5902-2) 12.5 11.9-14.5 [facility] CenterProthromb Time International Ratio 2018-10-22 04:52:00* Test Item Value Reference Range Interpretation Comments Prothromb Time International Ratio (test code = 6301-6) 0.86 Oral Anticoagulant Therapy INR Values:1. Low Intensity Therapy 1.5 - 2.02 . Moderate Intensity Therapy 2.0 - 3.03. High Intensity Therapy(1) 2.5 - 3. 54. High Intensity Therapy(2) 3.0 - 4.05. Panic Value INR > 5.0 [facility] CenterActivated Partial Thromboplast Time 2018-10-22 04:52:00* Test Item Value Reference Range Interpretation Comments Activated Partial Thromboplast Time (test code = 92491-9) 33.9 23.8-35.5 [facility] CenterCHEST 2 WKCCF5808-55-65 04:14:00 [place] [address] Patient Name: AYESHA DOUGLAS MR #: [id number] : 1950 Age/Sex: 67/F Req #: [id number] Adm Physician: Ordered by: JOSE HENRY MD Report #: [id number] Location: ER Room/Bed: Procedure: [id number] DX/CH EST 2 VIEWS Exam Date: 10/22/18 [...] COPY TO: JOSE HENRY MD Urine Amorphous Dtrdlgxa0692-69-97 03:45:00* Test Item Value Reference Range Interpretation Comments Urine Amorphous Sediment (test code = 8246-1) FEW FEW [facility] CenterUrine Amorphous Bqbdaexo2704-47-82 03:45:00* Test Item Value Reference Range Interpretation Comments Urine Amorphous Sediment (test code = 8246-1) FEW FEW [facility] CenterMagnesium Lpjxe3387-06-37 03:27:00* Test Item Value Reference Range Interpretation Comments Magnesium Level (test code = 97657-2) 2.0 1.3-2.1 [facility] CenterB-Type Natriuretic Fgkpcwr6645-10-57 03:27:00* Test Item Value Reference Range Interpretation Comments B-Type Natriuretic Peptide (test code = 66324-5) 195.2 0-100 H [facility] CenterMagnesium Epoyz0058-65-99 03:27:00* Test Item Value Reference Range Interpretation Comments Magnesium Level (test code = 87099-3) 2.0 1.3-2.1 [facility] CenterB-Type Natriuretic Rufluyn4166-97-51 03:27:00* Test Item Value Reference Range Interpretation Comments B-Type Natriuretic Peptide (test code = 56734-0) 195.2 0-100 H [facility] CenterErythrocyte Sedimentation Wcsj2180-34-92 03:25:00* Test Item Value Reference Range Interpretation Comments Erythrocyte Sedimentation Rate (test code = 4537-7) 28 0- 20 H [facility] CenterErythrocyte Sedimentation Mmoe3824-11-52 03:25:00* Test Item Value Reference Range Interpretation Comments Erythrocyte Sedimentation Rate (test code = 4537-7) 28 0- 20 H [facility] CenterUrine Transitional Epithelial Cells 2018-10-22 03:08:00* Test Item Value Reference Range Interpretation Comments Urine Transitional Epithelial Cells (test code = 8249-5) FEW NONE H [facility] CenterUrine Transitional Epithelial Cells 2018-10-22 03:08:00* Test Item Value Reference Range Interpretation Comments Urine Transitional Epithelial Cells (test code = 8249-5) FEW NONE H [facility] CenterCT BRAIN JB7697-93-21 02:59:00 [facility] [address] [place] [address] Patient Name: AYESHA DOUGLAS MR #: [id number] : 1950 Age/Sex: 67/F Req #: [id number] Adm Physician: Ordered by: JOSE HENRY MD Report #: [id number] Location: ER Room/Bed: Procedure: [id number] CT/CT BRAIN WO Exam Date: 10/22/18 Exam [...] Level (test code = 2951-2) 137 136-145 [facility] CenterPotassium Yuzqf9514-68-49 18:54:00* Test Item Value Reference Range Interpretation Comments Potassium Level (test code = 2823-3) 5.1 3.5-5.1 [facility] CenterChloride Rnjcz8063-33-81 18:54:00* Test Item Value Reference Range Interpretation Comments Chloride Level (test code = 2075-0) 99 98-107 [facility] CenterCarbon Dioxide Iyqug4078-95-68 18:54:00* Test Item Value Reference Range Interpretation Comments Carbon Dioxide Level (test code = 2028-9) 26 22-29 [facility] CenterAnion Cdd3051-46-03 18:54:00* Test Item Value Reference Range Interpretation Comments Anion Gap (test code = 09621-1) 17.1 8-16 H [facility] CenterBlood Urea Wmdflonl5616-37-08 18:54:00* Test Item Value Reference Range Interpretation Comments Blood Urea Nitrogen (test code = 3094-0) 44 7-26 H [facility] CenterCreatinine2018-04-02 18:54:00* Test Item Value Reference Range Interpretation Comments Creatinine (test code = 2160-0) 2.27 0.57-1.11 H [facility] CenterBUN/Creatinine Ddyve2368-87-48 18:54:00* Test Item Value Reference Range Interpretation Comments BUN/Creatinine Ratio (test code = 3097-3) 19 6-25 [facility] CenterEstimat Glomerular Filtration Rate 2018-01-05 18:54:00* Test Item Value Reference Range Interpretation Comments Estimat Glomerular Filtration Rate (test code = 97688-9) 22 >60 L Ranges were taken from the National Kidney Disease Education Program and the [facility] Foundation literature.Reference ranges:60 or greater: Mbadnj04-66 ( for 3 consecutive months): Chronic kidney disease 15 or less: Kidney failureUniversity Medical CenterGlucose Dsecr9747-45-39 18:54:00* Test Item Value Reference Range Interpretation Comments Glucose Level (test code = JXO7644) 133 74-118 H [facility] CenterCalcium Yjsui5075-19-82 18:54:00* Test Item Value Reference Range Interpretation Comments Calcium Level (test code = 10375-0) 10.6 8.4-10.2 H [facility] CenterTotal Hfzzpzfcf2726-17-26 18:54:00* Test Item Value Reference Range Interpretation Comments Total Bilirubin (test code = 1975-2) 0.4 0.2-1.2 [facility] CenterAspartate Amino Transf (AST/SGOT) 2018-01-05 18:54:00* Test Item Value Reference Range Interpretation Comments Aspartate Amino Transf (AST/SGOT) (test code = Aspartate Amino Transf (AST/SGOT)) 18 5-34 [facility] CenterAlanine Aminotransferase (ALT/SGPT) 2018-01-05 18:54:00* Test Item Value Reference Range Interpretation Comments Alanine Aminotransferase (ALT/SGPT) (test code = 1742-6) 23 0-55 [facility] CenterTotal Quszvoo7300-26-21 18:54:00* Test Item Value Reference Range Interpretation Comments Total Protein (test code = 2885-2) 7.9 6.5-8.1 [facility] CenterAlbumin2018-04-02 18:54:00* Test Item Value Reference Range Interpretation Comments Albumin (test code = 1751-7) 3.8 3.5-5.0 [facility] CenterGlobulin2018-04-02 18:54:00* Test Item Value Reference Range Interpretation Comments Globulin (test code = 09696-7) 4.1 2.3-3.5 H [facility] CenterAlbumin/Globulin Kzbek8327-76-90 18:54:00 * Test Item Value Reference Range Interpretation Comments Albumin/Globulin Ratio (test code = 1759-0) 0.9 0.8-2.0 [facility] CenterAlkaline Xwetzghfkxw9348-83-22 18:54:00* Test Item Value Reference Range Interpretation Comments Alkaline Phosphatase (test code = 6768-6) 50 40-150 [facility] CenterWhite Blood Ystnp3871-54-61 18:39:00* Test Item Value Reference Range Interpretation Comments White Blood Count (test code = 6690-2) 11.24 4.8-10.8 H [facility] CenterRed Blood Zrvvd0729-68-05 18:39:00* Test Item Value Reference Range Interpretation Comments Red Blood Count (test code = 789-8) 4.32 3.6-5.1 [facility] CenterHemoglobin2018-04-02 18:39:00* Test Item Value Reference Range Interpretation Comments Hemoglobin (test code = 97089-5) 13.2 12.0-16.0 [facility] CenterHematocrit2018-04-02 18:39:00* Test Item Value Reference Range Interpretation Comments Hematocrit (test code = 4544-3) 40.2 34.2-44.1 [facility] CenterMean Corpuscular Ylfmph5697-33-99 18:39:00* Test Item Value Reference Range Interpretation Comments Mean Corpuscular Volume (test code = 787-2) 93.1 81-99 [facility] CenterMean Corpuscular Efhoyzwgbe1155-40-65 18:39:00* Test Item Value Reference Range Interpretation Comments Mean Corpuscular Hemoglobin (test code = 785-6) 30.6 28-32 [facility] CenterMean Corpuscular Hemoglobin Concent 2018-01-05 18:39:00* Test Item Value Reference Range Interpretation Comments Mean Corpuscular Hemoglobin Concent (test code = 786-4) 32.8 31-35 [facility] CenterRed Cell Distribution Yiikp9191-49-55 18:39:00* Test Item Value Reference Range Interpretation Comments Red Cell Distribution Width (test code = 06255-5) 13.2 11.7 -14.4 [facility] CenterPlatelet Perkt8693-17-40 18:39:00* Test Item Value Reference Range Interpretation Comments Platelet Count (test code = 777-3) 382 140-360 H [facility] CenterNeutrophils (%) (Auto)2018-01-05 18:39:00 * Test Item Value Reference Range Interpretation Comments Neutrophils (%) (Auto) (test code = 13229-3) 66.8 38.7-80.0 [facility] CenterLymphocytes (%) (Auto)2018-01-05 18:39:00 * Test Item Value Reference Range Interpretation Comments Lymphocytes (%) (Auto) (test code = 736-9) 21.4 18.0-39.1 [facility] CenterMonocytes (%) (Auto)2018-01-05 18:39:00* Test Item Value Reference Range Interpretation Comments Monocytes (%) (Auto) (test code = 5905-5) 7.6 4.4-11.3 [facility] CenterEosinophils (%) (Auto)2018-01-05 18:39:00 * Test Item Value Reference Range Interpretation Comments Eosinophils (%) (Auto) (test code = 713-8) 3.2 0.0-6.0 [facility] CenterBasophils (%) (Auto)2018-01-05 18:39:00* Test Item Value Reference Range Interpretation Comments Basophils (%) (Auto) (test code = 706-2) 0.4 0.0-1.0 [facility] CenterIM GRANULOCYTES %2018-01-05 18:39:00* Test Item Value Reference Range Interpretation Comments IM GRANULOCYTES % (test code = IM GRANULOCYTES %) 0.6 0.0- 1.0 [facility] CenterNeutrophils # (Auto)2018-01-05 18:39:00* Test Item Value Reference Range Interpretation Comments Neutrophils # (Auto) (test code = 751-8) 7.5 2.1-6.9 H [facility] CenterLymphocytes # (Auto)2018-01-05 18:39:00* Test Item Value Reference Range Interpretation Comments Lymphocytes # (Auto) (test code = 03668-3) 2.4 1.0-3.2 [facility] CenterMonocytes # (Auto)2018-01-05 18:39:00* Test Item Value Reference Range Interpretation Comments Monocytes # (Auto) (test code = 742-7) 0.9 0.2-0.8 H [facility] CenterEosinophils # (Auto)2018-01-05 18:39:00* Test Item Value Reference Range Interpretation Comments Eosinophils # (Auto) (test code = 711-2) 0.4 0.0-0.4 [facility] CenterBasophils # (Auto)2018-01-05 18:39:00* Test Item Value Reference Range Interpretation Comments Basophils # (Auto) (test code = 704-7) 0.1 0.0-0.1 [facility] CenterAbsolute Immature Granulocyte (auto 2018-01-05 18:39:00* Test Item Value Reference Range Interpretation Comments Absolute Immature Granulocyte (auto (mauri t code = Absolute Immature Granulocyte (auto) 0.07 0-0.1 [facility] CenterUrine XLC4486-61-36 15:27:00* Test Item Value Reference Range Interpretation Comments Urine WBC (test code = 5821-4) 11-20 0-5 H [facility] XKR4601-64-71 15:27:00* Test Item Value Reference Range Interpretation Comments Urine RBC (test code = 74541-6) NONE 0-5 [facility] Ffdikgge9900-32-54 15:27:00* Test Item Value Reference Range Interpretation Comments Urine Bacteria (test code = 19240-1) NONE NONE [facility] CenterUrine Epithelial Rdkcq5874-71-27 15:27:00 * Test Item Value Reference Range Interpretation Comments Urine Epithelial Cells (test code = 34621-6) MODERATE NONE [facility] CenterUrine Transitional Epithelial Cells 2018-01-05 15:27:00* Test Item Value Reference Range Interpretation Comments Urine Transitional Epithelial Cells (test code = 8249-5) FEW NONE H [facility] CenterUrine Renal Epithelial Isuoa7393-43-90 15:27:00* Test Item Value Reference Range Interpretation Comments Urine Renal Epithelial Cells (test code = 61977-0) FEW NON E H [facility] CenterUrine Renal Epithelial Nywrq9747-25-24 15:27:00* Test Item Value Reference Range Interpretation Comments Urine Renal Epithelial Cells (test code = 64106-4) FEW NON E H [facility] CenterUrine Qjvfz9374-72-58 15:12:00* Test Item Value Reference Range Interpretation Comments Urine Color (test code = 5778-6) YELLOW YELLOW [facility] CenterUrine Bhwdsfh1340-57-75 15:12:00* Test Item Value Reference Range Interpretation Comments Urine Clarity (test code = 54010-5) SL CLOUDY CLEAR [facility] CenterUrine Specific Wfepzqw5321-34-66 15:12:00 * Test Item Value Reference Range Interpretation Comments Urine Specific [place]ao (test code = 5811-5) 1.010 1.010-1.02 5 [facility] CenterUrine cJ7949-56-11 15:12:00* Test Item Value Reference Range Interpretation Comments Urine pH (test code = 98323-3) 5 5-7 [facility] CenterUrine Leukocyte Ycesbvds4085-48-35 15:12:00* Test Item Value Reference Range Interpretation Comments Urine Leukocyte Esterase (test code = 5799-2) 2+ NEGATIVE H [facility] Geuqhdp2965-88-42 15:12:00* Test Item Value Reference Range Interpretation Comments Urine Nitrite (test code = 50052-6) NEGATIVE NEGATIVE [facility] Accmztm7146-99-35 15:12:00* Test Item Value Reference Range Interpretation Comments Urine Protein (test code = 5804-0) TRACE NEGATIVE H [facility] Glucose (UA)2018-01-05 15:12:00* Test Item Value Reference Range Interpretation Comments Urine Glucose (UA) (test code = 2349-9) NEGATIVE NEGATIVE [facility] CenterUrine Fmgjrmr5577-18-06 15:12:00* Test Item Value Reference Range Interpretation Comments Urine Ketones (test code = 73307-5) NEGATIVE NEGATIVE [facility] Ilmlrfcfpccs7178-77-86 15:12:00* Test Item Value Reference Range Interpretation Comments Urine Urobilinogen (test code = 27114-5) 0.2 0.2-1 [facility] CenterUrine Wfjlbiamb3151-82-52 15:12:00* Test Item Value Reference Range Interpretation Comments Urine Bilirubin (test code = 1978-6) NEGATIVE NEGATIVE [facility] Nqahq1327-22-64 15:12:00* Test Item Value Reference Range Interpretation Comments Urine Blood (test code = 92951-2) NEGATIVE NEGATIVE [facility] CenterRIBS BILAT W/CXR [place] [id number] [place] [address] Patient Name: AYESHA DOUGLAS MR #: [id number] : 1950 Age/Sex: 67/F Req #: [id number] Adm Physician: Ordered by: NICOLAS ACOSTA MD Report #: [id number] Location: ER Room/Bed: Procedure: [id number] DX/RIBS BILAT W/CXR Exam Date : 01/05/18 [...] 17 25 Transcribed By: EVELYNE on 01/05/18 0943 COPY TO: NICOLAS ACOSTA MD
--- NOTE | 2020-03-05 09:38 | NUR ---
PT PLACED ON HOSPITAL BED FOR PT COMFORT.
--- NOTE | 2020-03-05 10:24 | NUR ---
CALLED DR. MATIAS ABOUT HOME MEDS, STATES HE WILL BE HERE TO SEE THE PATIENT IN A FEW HOURS.
--- NOTE | 2020-03-05 11:15 | NUR ---
PT'S DAUGHTER BROUGHT [employer] DOUBLE CHEESEBURGER, LARGE FRIES AND SODA FOR HERSELF AND PT, EATING IN ROOM. DR MARTINEZ ARRIVED TO ROOM SAME TIME RN DID. DO MICHELLE AWARE PT EATING WRONG DIET, PT ALLOWED TO CONTINUE. DAUGHTER ASKED TO NOT BRING OUTSIDE FOOD AGAIN, STATES PT NEVER FED, CHG NURSE, PRIMARY AND HOUSE SUP ALL AWARE PT WAS FED BREAKFAST D/T ALL HAVING TO CORRESPOND WITH CAFE TO GET PT TRAY.
--- NOTE | 2020-03-05 11:29 | NUR ---
HEPARIN DRIP TURNED OFF. PTT >200 PER [address] AND [address] MATIAS
[2020-03-05] MEDS ORDERED: NITROGLYCERIN 2% OINT 1 GM PKT ONE ×2 (11:42)
--- NOTE | 2020-03-05 12:07 | NUR ---
HOLDING HEPARIN DRIP UNTIL 1230 AND WILL RESTART DECREASE 200 UNITS.
--- NOTE | 2020-03-05 12:09 | NUR ---
D/T REDRAW PTT AT 1830
[2020-03-05] MEDS ORDERED: HYDRALAZINE HCL 20 MG/ML VIAL IV PRN (13:00)
[2020-03-05] MEDS ORDERED: CLONAZEPAM 1 MG TAB PO PRN (13:00)
[2020-03-05] MEDS ORDERED: ONDANSETRON HCL INJ 2MG/ML 2ML 2 MG/ML VIAL IV PRN (13:00)
[2020-03-05] MEDS ORDERED: FUROSEMIDE INJ 10 MG/ML 4 ML VIAL IV ONE ×2 (13:15→18:45)
--- NOTE | 2020-03-05 15:14 | NUR ---
DR MATIAS HERE AND SAW PT.
--- NOTE | 2020-03-05 16:15 | NUR ---
consent on chart
[2020-03-05 16:17] VITALS: BP 148/77
[2020-03-05 16:21] VITALS: BP 148/77
--- NOTE | 2020-03-05 16:23 | NUR ---
ARRIVED TO UNIT AT APPROXIMATELY 1600. AAOX3. ACYANOTIC. NO DISTRESS NOTED. DAUGHTER WITH PATIENT.
[2020-03-05 16:30] VITALS: BP 148/77
[2020-03-05] MEDS: SODIUM CHLORIDE 0.9% 1000ML 1,000 ML IV SCH (18:55)
[2020-03-05] MEDS: ACETAMINOPHEN 325 MG TAB PO PRN (19:15)
--- NOTE | 2020-03-05 19:35 | NUR ---
bedside shift report received from camron rn. Pt is alert and oriented x3. tele on.Respirations are even and unlabored. rt 20g ac patent with healthy site. left 20g iv heparin infusing as per protocal. left foot - unable to palpate pulses. left foot big toe,fourth toe-bluish in color on tip of toes.nitropatch placed by dr not to be removed.pulses palpable in rt foot. Call light within reach. bed in low position. heparin drip infusing at 12 per protoca. ns infusing via 75 ml/hr.pt denies pain. next ptt will be 03/05 0030.
[2020-03-05 20:00] VITALS: BP 127/99
[2020-03-05 21:00] VITALS: BP 127/99
[2020-03-05] MEDS ORDERED: MELATONIN 5 MG TABLET PO PRN (21:00)
--- NOTE | 2020-03-05 22:10 | History and Physical ---
CHIEF COMPLAINT: Left foot pain and discoloration. HISTORY OF PRESENT ILLNESS: This is a 69-year-old female, morbidly obese, history of hypertension, depression, multiple psychiatric disorders, also morbidly obese, comes into the ED with complaints of left foot pain ongoing for the last 3-4 days. The patient reports having some left calf pain with ambulation. The patient is a chronic smoker and has been for 25+ years. She reports when she has these pains in the left calf when she ambulates, and improves upon resting. Over the last 4 days, she has noticed that her toes in her left foot has been discolored, cool to touch, who came into the ED for further evaluation and management. The patient was initiated on a heparin drip last night by the ER physician. Arterial Doppler was pending. The patient was already evaluated by Cardiology and is scheduling for lower extremity angiogram sometime over the next 1 to 2 days. The patient reports that her pain has much improved at this current moment. REVIEW OF SYSTEMS: Pertinent positives: Left calf pain. Pertinent negative: Denies any chest pain, palpitation, nausea, vomiting, diarrhea, dysuria, hematuria, frequency, urgency, lightheadedness, dizziness, abdominal pain, headaches, shortness of breath, cough, congestion, fever, or any other complaints. The rest of 14-point review of systems are reviewed with the patient and are negative. ALLERGIES: SULFA, AMOXICILLIN, MORPHINE. HOME MEDICATIONS: 1. Bupropion. 2. Clonidine. 3. Lasix. 4. Gabapentin. 5. Linzess. 6. Prednisone. 7. Tramadol. 8. Flaxseed oil. 9. Losartan. 10. Norvasc. 11. Aspirin. 12. Atenolol. 13. Clonazepam. 14. Nexium. 15. Levothyroxine. 16. Spironolactone. PAST MEDICAL HISTORY: Hypothyroidism, hypertension. She has a history of depression as well, chronic constipation. FAMILY HISTORY: Hypertension and diabetes. PAST SURGICAL HISTORY: Reports none. SOCIAL HISTORY: She is a chronic smoker, one pack per day for more than 25+ years. No alcohol. No drugs. She does not work at the current moment. PHYSICAL EXAMINATION: VITAL SIGNS: Temperature is 98.4, pulse 65, respiratory rate is 16, blood pressure 126/72, and pulse ox 95% on room air. GENERAL: Not in acute distress. Alert and oriented x3. Cooperative on examination. HEENT: Head; normocephalic, atraumatic. Eyes; pupils are equal, round, and reactive to light bilaterally. Extraocular movements intact bilaterally. Throat; no evidence of erythema or exudates in the posterior pharynx. Has poor dentition. NECK: Supple. Good range of motion. PULMONARY: Clear to auscultation bilaterally. No wheezing, no rales, no rhonchi, no crackles appreciated. CARDIOVASCULAR: Positive S1 and S2. No murmurs, rubs, or gallops appreciated. ABDOMEN: Soft, nondistended, and nontender to palpation. Bowel sounds present. MUSCULOSKELETAL: Strength is 5/5 throughout. No evidence of any muscle deficits on examination. No weakness appreciated. NEUROLOGIC: Cranial nerve II through XII grossly intact. No evidence of any neurological deficits on exam. SKIN: Intact. Warm to touch. Good cap refill. PSYCHIATRIC: Normal affect and mood. EXTREMITIES: Left lower extremity warm to touch until you get to the distal toes, which is cyanotic in color, but much warm to touch and with some slight coolness appreciated. There was no pain or tenderness to palpation on examination. LABORATORY DATA: Show white count 13, hemoglobin 13, hematocrit 42, platelets of 338. Coagulation; PT 12, INR 0.87, PTT was 35 and then repeat shows greater than 200. Chemistry; sodium 140, potassium 5.4, chloride 105, bicarb 24, anion gap of 16, BUN is 30, creatinine is 1.81, glucose 95, calcium 9.6, total bilirubin was 0.5, AST 14, ALT 21, alkaline phosphatase 104. CK 185, troponin 0.05. Albumin 3.6. SEROLOGY: Coronavirus PCR pending. MICROBIOLOGY: None. IMAGING STUDIES: Lower extremity arterial Doppler pending. IMPRESSION: 1. Left lower extremity peripheral arterial disease with underlying claudication. 2. Discoloration of the left toes secondary to peripheral arterial disease. 3. Hypertension. 4. [id number] chronic kidney disease, stage 3-4. 5. History of anxiety. PLAN: At this time, Cardiology has been consulted and evaluated the patient at bedside, recommends heparin drip and sometime this week, they are going to do an angiogram and also underlying intervention as well. We will continue with pain control for now. She does not have a whole lot of pain. Started on IV fluids, very low dose to avoid any contrast induced nephropathy. I will consult with the patient's primary spot welder, Dr. Ramirez. Continue with Nitro paste on the left foot for pain control and blood flow. Resume same home medications. Heart healthy diet. Heparin drip for DVT prophylaxis and evaluation has been performed. The patient agreed with plan of care as discussed and discussed plan of care with nursing staff. Consultants involved is going to be Cardiology and Nephrology. MD KISHAN Moore/MODL /[id number]
[2020-03-06] VITALS (7 sets, daily range): BP systolic 104–146; BP diastolic 56–94
[2020-03-06] MEDS: SODIUM CHLORIDE 0.9% 1000ML 1,000 ML IV SCH ×2 (02:35→15:55)
[2020-03-06] MEDS: HEPARIN 25,000 UNIT 25,000 UNIT in DEXTROSE 5% 250ML 250 ML IV SCH (04:04)
[2020-03-06 05:04] LABS: BASOPHILS # (AUTO) 0.1 (0.0-0.1); BASOPHILS % 0.6 % (0.0-1.0); EOSINOPHILS # (AUTO) 0.5 (0.0-0.4); EOSINOPHILS % 5.3 % (0.0-6.0); HEMATOCRIT 40.4 % (34.2-44.1); HEMOGLOBIN 12.6 g/dL (12.0-16.0); LYMPHOCYTES % 33.2 % (18.0-39.1); MEAN CORPUSCULAR HEMOGLOBIN 27.9 pg (28-32); MEAN CORPUSCULAR HGB CONC 31.2 g/dL (31-35); MEAN CORPUSCULAR VOLUME 89.6 fL (81-99); MONOCYTES # (AUTO) 0.8 (0.2-0.8); MONOCYTES % 8.6 % (4.4-11.3); NEUTROPHILS # (AUTO) 4.7 (2.1-6.9); NEUTROPHILS % 51.7 % (38.7-80.0); PLATELET COUNT 286 x10e3/uL (140-360); RED BLOOD COUNT 4.51 x10e6/uL (3.6-5.1); RED CELL DISTRIBUTION WIDTH 14.2 % (11.7-14.4)
[2020-03-06] MEDS: LEVOTHYROXINE SODIUM 75 MCG TAB PO SCH (05:21)
[2020-03-06 05:24] LABS: ANION GAP 16.2 mmol/L (8-16); CALCIUM 9.7 mg/dL (8.4-10.2); CREATININE, SERUM 1.38 mg/dL (0.57-1.11); POTASSIUM 4.2 mmol/L (3.5-5.1)
[2020-03-06] MEDS ORDERED: KETOROLAC TROMETHAMINE 30 MG/ML VIAL IV PRN (07:45)
[2020-03-06] MEDS ORDERED: MIDAZOLAM HCL 2 MG/2 ML VIAL ONE ×4 (08:18→11:06)
[2020-03-06] MEDS ORDERED: SODIUM CHLORIDE 0.9% 1000ML 1,000 ML ONE ×2 (08:19→10:11)
[2020-03-06] MEDS ORDERED: FENTANYL CITRATE/PF 100MCG/2 ML INJ ONE ×3 (08:19→12:14)
[2020-03-06] MEDS ORDERED: LIDOCAINE HCL 2% LOCAL 20 ML VIAL ONE (08:19)
[2020-03-06] MEDS ORDERED: HEPARIN SOD/SOD CHLORIDE 2,000 ML ONE (08:19)
[2020-03-06] MEDS ORDERED: IOPAMIDOL 300MG/ML 100 ML INFUS..BTL IV ONE ×4 (08:19→12:06)
[2020-03-06] MEDS: ATENOLOL 50 MG TAB PO SCH (08:34)
[2020-03-06] MEDS: ASPIRIN 81 MG CHEW TAB PO SCH (08:34)
[2020-03-06] MEDS: PANTOPRAZOLE SOD 40 MG TABEC PO SCH (08:34)
[2020-03-06] MEDS ORDERED: AMLODIPINE BESYLATE 10 MG TAB PO SCH (09:00)
[2020-03-06] MEDS ORDERED: SPIRONOLACTONE 25 MG TAB PO SCH (09:00)
[2020-03-06] MEDS ORDERED: VERAPAMIL HCL 2.5 MG/ML 2 ML VIAL ONE (10:11)
[2020-03-06] MEDS ORDERED: CLOPIDOGREL BISULFATE 75 MG TAB ONE (12:33)
[2020-03-06] MEDS ORDERED: ONDANSETRON HCL INJ 2MG/ML 2ML 2 MG/ML VIAL ONE (12:55)
--- NOTE | 2020-03-06 13:45 | NUR ---
ASSESSMENT: Spiritual concern Pt thankful for prayer. Pt states her daughter was in auto accident en route to [facility] and daughter was safe. Pt's daughter at bedside. Pt identifies as Bahai. Intervention: Provided empathic listening and facilitated storytelling. Outcome: Pt & daughter expressed appreciation for visit. No need to follow at this time. COLETTE BOLANOS [employer] Interpreter Spiritual Care Department O: [phone]
[2020-03-06] MEDS ORDERED: GABAPENTIN400 MG PO (13:51)
--- NOTE | 2020-03-06 13:52 | NUR ---
RECEIVED LIST OF HOME MEDICATIONS BROUGHT IN BY DAUGHTER. MED RECONCILIATION WAS UPDATED
--- NOTE | 2020-03-06 14:08 | Progress Note ---
DATE: Cardiology Progress Note SUBJECTIVE: The patient's foot is feeling better after percutaneous transluminal angioplasty. OBJECTIVE: VITAL SIGNS: Temperature is 97.8, heart rate 66, respirations are 18, blood pressure is 138/56, oxygen saturation 97% on room air. GENERAL: Well appearing in no apparent distress. CARDIOVASCULAR: Regular rate and rhythm. LUNGS: Clear to auscultation. ABDOMEN: Soft, nontender, nondistended. EXTREMITIES: Palpable pulses. CARDIOVASCULAR MEDICATIONS: Reviewed. LABORATORY DATA: Reviewed. Creatinine improved to 1.3. ASSESSMENT: 1. Severe peripheral arterial disease, status post successful angioplasty of the left superficial femoral, popliteal, posterior tibial, and anterior tibial arteries. 2. Hypertension. 3. Obesity. 4. Hyperlipidemia. PLAN: RECOMMENDATIONS: She is status post intervention and feeling well immediately. A large amount of contrast had to be used for her extensive intervention. Continue intravenous fluid hydration. Monitor her basic metabolic panel in the morning. Start Plavix. Continue aspirin and start high-dose statin. Hector Lee DO BM/MODL /[id number]
[2020-03-06] MEDS ORDERED: CLONAZEPAM2 MG PO (15:09)
--- NOTE | 2020-03-06 17:30 | NUR ---
PTT is 163. hold heparin for 1 hour starting at 1720
--- NOTE | 2020-03-06 18:40 | Operative Report ---
DATE OF PROCEDURE: SURGEON: Hector Lee DO PROCEDURES PERFORMED: 1. Conscious sedation, 2 hours. 2. Abdominal aortography. 3. Catheter placement, aorta. 4. Bilateral extremity angiography. 5. Third-order peripheral angiography. 6. Percutaneous transluminal angioplasty with a drug-coated balloon of the left superficial femoral artery. 7. Orbital atherectomy and percutaneous transluminal angioplasty of the popliteal artery. 8. Mechanical thrombectomy and percutaneous transluminal angioplasty of the left anterior tibial artery. 9. Percutaneous transluminal angioplasty of the left posterior tibial artery. 10. Secondary thrombectomy. PREPROCEDURE DIAGNOSIS: Critical limb ischemia with rest pain. POSTPROCEDURE DIAGNOSIS: Peripheral arterial disease. ESTIMATED BLOOD LOSS: Less than 50 mL. SPECIMENS REMOVED: None. PROCEDURE IN DETAIL: After informed consent was obtained, the patient was brought to the cardiac catheterization laboratory in a fasting and nonsedated state. Bilateral groins were prepped and draped in usual sterile fashion. A 2% lidocaine was used over the right anterior groin for local anesthesia. The patient received fentanyl and midazolam, administered by the catholic priest nurse and her neurologic and physiologic status was monitored by myself and the catholic priest staff for 2 hours. Using micropuncture needle, the right common femoral artery was accessed via modified Seldinger technique and a 6-Slovak sheath was placed. Next, Omni Flush catheter was placed in the abdominal aorta and abdominal aortography was performed. 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 Next, this Omni Flush was taken up and over the iliac bifurcation and left lower extremity peripheral angiography and third-order peripheral angiography confirmed severe peripheral arterial disease. She had a 70% two stenotic lesions in the superficial femoral artery with a 35 mm gradient present. She had 295% severe popliteal stenotic lesions. Her tibioperoneal trunk and the peroneal artery were patent. The anterior tibial and posterior tibial both were 100% occluded. Decision was made to intervene. The patient received systemic heparin for therapeutic anticoagulation. A 65 cm up-and-over sheath was placed. Therapeutic ACTs were confirmed. The anterior tibial lesion was crossed with a whisper wire backloaded into a 0.014 Seeker microcatheter. Distal injection confirmed intraluminal status at the level of the dorsalis pedis. The microcatheter was removed and angioplasty was performed using a 2.5 then subsequent 3 mm balloon. Next, the same apparatus was crossed into the posterior tibial, distal injection confirmed intraluminal status, and then this underwent angioplasty with the same 2.5 and 3 mm balloons. Next, I exchanged out the wire for a Viper wire and placed in the peroneal artery. I performed multiple runs of orbital atherectomy of the popliteal lesions. I then performed a balloon angioplasty with a 4 x 150 Lutonix drug-coated balloon. Unfortunately, angiographic images subsequent to this showed reocclusion of the anterior tibial and posterior tibial arteries. I then once more crossed into each artery in the similar fashion as dictated above and performed angioplasty with return of patency. Next, I performed balloon angioplasty of the superficial femoral artery lesions with a 7 mm drug-coated balloon. Final angiography confirmed excellent angioplasty results with brisk antegrade flow and 3-vessel runoff. The sheath was pulled back, exchanged for short sheath and the right lower extremity angiography was performed. The arteriotomy site was closed with an Angio-Seal device. There was excellent hemostasis at the end of the case. The patient tolerated the procedure well. No immediate complications and transferred back to her room in stable condition. PROCEDURAL FINDINGS: 1. The right renal artery is occluded. 2. The infrarenal abdominal aorta has a small aneurysm without thrombus or dissection. 3. Bilateral iliac systems are patent with only mild luminal irregularities. 4. The left lower extremity has two 70% stenotic lesions in the superficial femoral artery with a 35 mm gradient. The profunda femoris artery is patent. The popliteal artery has two tandem 95% stenotic lesions. The tibioperoneal trunk and peroneal artery are patent with luminal irregularities. The left posterior tibial and anterior tibial arteries are 100% occluded. 5. The right common femoral and deep femoral arteries are patent with luminal irregularities. There is diffuse moderate disease with a focal 67% stenosis in the right superficial femoral artery. The right popliteal, tibioperoneal trunk, peroneal arteries are patent. There is washout toward the runoff vessels, however, there does appear to be a 70% mid anterior tibial stenosis and the right posterior tibial artery appears to be occluded. IMPRESSION: Severe peripheral artery disease, status post intervention of multiple arteries of the left lower extremity. RECOMMENDATIONS: Continue aggressive risk factor modification and the patient will be placed on optimal medical therapy for atherosclerotic disease. DO FIOR Tadeo/SYLVIA /[id number]
--- NOTE | 2020-03-06 18:55 | Consultation ---
DATE OF CONSULTATION: Initial Nephrology Consultation Report REASON FOR CONSULTATION: Chronic kidney disease. HISTORY OF PRESENT ILLNESS: Ms. Cabrera is a 69-year-old female who has a history of chronic kidney disease. She sees Dr. Ramirez in the outpatient setting. She says that the last time she saw Dr. Raimrez was about 7 or 8 months ago and the patient presented to the hospital with some left foot pain. Over the last few weeks or so, she states her foot had been getting discolored and she has also had more pain. I am being asked to see her because of an elevated serum potassium of 5.4 and also for elevated serum creatinine. The patient came back from the laboratory tech. She underwent multiple procedures on the arterial system of her left leg including thrombectomy procedures. PAST MEDICAL HISTORY: The patient has history of renal artery stenosis, history of hypertension, history of chronic kidney disease. PAST SURGICAL HISTORY: She has undergone cholecystectomy, hysterectomy, appendectomy. FAMILY HISTORY: Noncontributory. ALLERGIES: SULFA, AMOXICILLIN, MORPHINE. MEDICATIONS: As per MAR. SOCIAL HISTORY: No smoking. No EtOH or risk factors. REVIEW OF SYSTEMS: The patient was having some pain on the left leg and also some decrease in movement. She was having pain and there is no chest pain. No shortness of breath. No abdominal pain. No nausea. No vomiting. No fevers. No constitutional symptoms. PHYSICAL EXAMINATION: VITAL SIGNS: Blood pressure is 138/56, pulse 66, respirations 17. GENERAL: The patient is morbidly obese. HEENT: No increased JVD. CARDIOVASCULAR: Regular rate and rhythm. LUNGS: Decreased breath sounds in bases bilaterally. ABDOMEN: Positive bowel sounds. EXTREMITIES: No edema, cyanosis, clubbing. LABORATORY RESULTS: Hemoglobin and hematocrit of 12 and 40 respectively. Sodium 140, potassium 4.2, chloride 108, bicarbonate 20, BUN and creatinine 25 and 1.38 respectively. When the patient was admitted, the serum creatinine was 1.8 and potassium was 5.4. IMPRESSION/PLAN: 1. Acute kidney injury. 2. Chronic kidney disease stage 3. 3. History of hypertension. 4. History of atherosclerotic vascular disease. 5. Hyperkalemia, resolved. 6. Status post peripheral artery disease, multiple procedures done. PLAN: At the present time NSAIDs, IV contrast should be avoided. Potassium has come down. Her acute kidney injury component has gotten better. She has a chronic kidney disease stage 3. She is getting IV fluids for 1 L and may be continued for one more liter. She is eating and drinking okay. I follow the patient with you. Thank you, Dr. Mg for allowing me to participate in the care of this patient with you. Ather MD OPAL Sibley/SYLVIA /[id number]
[2020-03-06] MEDS: ATORVASTATIN 40 MG TAB PO SCH (20:56)
[2020-03-06] MEDS: AMLODIPINE BESYLATE 10 MG TAB PO SCH (20:59)
[2020-03-06] MEDS: BUPROPION HCL 150 MG TABCR PO SCH (20:59)
[2020-03-06] MEDS: CLONAZEPAM 1 MG TAB PO PRN (21:09)
[2020-03-07] VITALS (8 sets, daily range): BP systolic 114–146; BP diastolic 63–87
--- NOTE | 2020-03-07 00:17 | Progress Note ---
DATE: 03/06/2020 Medicine Progress Note SUBJECTIVE: The patient underwent bilateral lower extremity angiogram today with multiple angioplasties and PCI stent placement. The patient is currently doing well. Her left leg has very minimal pain, has good flow to it. PHYSICAL EXAMINATION: VITAL SIGNS: Temperature is 97.6, pulse 71, respiratory rate is 20, blood pressure 141/94, and pulse ox 96% on room air. GENERAL: Not in acute distress. Alert and oriented x3. Cooperative on examination. HEENT: Head; normocephalic, atraumatic. Eyes; pupils are equal, round, and reactive to light bilaterally. Extraocular movements intact bilaterally. Throat; no evidence of erythema or exudates in the posterior pharynx. Has poor dentition. NECK: Supple. Good range of motion. PULMONARY: Clear to auscultation bilaterally. No wheezing, no rales, no rhonchi, no crackles appreciated. CARDIOVASCULAR: Positive S1 and S2. No murmurs, rubs, or gallops appreciated. ABDOMEN: Soft, nondistended, and nontender to palpation. Bowel sounds present. MUSCULOSKELETAL: Strength is 5/5 throughout. No evidence of any muscle deficits on examination. No weakness appreciated. NEUROLOGIC: Cranial nerve II through XII grossly intact. No evidence of any neurological deficits on exam. SKIN: Intact. Warm to touch. Good cap refill. PSYCHIATRIC: Normal affect and mood. EXTREMITIES: No edema. Good range of motion throughout. LABORATORY DATA: Show white count 9, hemoglobin 12, hematocrit is 40, platelets of 286. Coagulation noted chemistry sodium 140, potassium 4.2, chloride 108, bicarb 20, anion gap of 16, BUN is 25, creatinine 1.38, calcium is 9.7. LFTs within normal range. Coronavirus PCR is pending. MICROBIOLOGY: None. IMPRESSION: 1. Left lower extremity peripheral arterial disease, status post angioplasty and stent placement. 2. Severe peripheral arterial disease, status post bilateral lower extremity angiogram with stent placement on both lower extremities. 3. Hypertension. 4. Acute kidney injury on chronic kidney disease, stage 3. 5. History of anxiety. PLAN: At this time, the patient underwent successful angioplasty and stent placement in the bilateral lower extremities. She has good flow, warm to touch left lower extremity to the feet and toes. Continue with heparin drip for now as per Cardiology. Nephrology was consulted to monitor and evaluate for acute kidney injury. Resume same home medications. Resume her diet. Discussed plan of care with the patient and nursing staff. MD KISHAN Moore/ARIELLAL /[id number]
[2020-03-07] MEDS: LEVOTHYROXINE SODIUM 75 MCG TAB PO SCH (05:28)
[2020-03-07] MEDS: ACETAMINOPHEN 325 MG TAB PO PRN (05:29)
[2020-03-07 05:32] LABS: BASOPHILS % 0.3 % (0.0-1.0); EOSINOPHILS # (AUTO) 0.4 (0.0-0.4); EOSINOPHILS % 3.3 % (0.0-6.0); HEMATOCRIT 39.6 % (34.2-44.1); HEMOGLOBIN 12.6 g/dL (12.0-16.0); LYMPHOCYTES # (AUTO) 2.2 (1.0-3.2); LYMPHOCYTES % 17.7 % (18.0-39.1); MEAN CORPUSCULAR HEMOGLOBIN 28.2 pg (28-32); MEAN CORPUSCULAR HGB CONC 31.8 g/dL (31-35); MEAN CORPUSCULAR VOLUME 88.6 fL (81-99); MONOCYTES % 7.9 % (4.4-11.3); NEUTROPHILS # (AUTO) 8.6 (2.1-6.9); NEUTROPHILS % 70.2 % (38.7-80.0); PLATELET COUNT 266 x10e3/uL (140-360); RED BLOOD COUNT 4.47 x10e6/uL (3.6-5.1); RED CELL DISTRIBUTION WIDTH 14.2 % (11.7-14.4)
[2020-03-07 06:16] LABS: ANION GAP 15.9 mmol/L (8-16); CALCIUM 9.7 mg/dL (8.4-10.2); CREATININE, SERUM 1.47 mg/dL (0.57-1.11); POTASSIUM 3.9 mmol/L (3.5-5.1)
--- NOTE | 2020-03-07 07:00 | NUR ---
received bedside report. pt is alert resting in bed, no s/s of distress. call light within reach and instructed pt to call RN for help
[2020-03-07] MEDS: ASPIRIN 81 MG CHEW TAB PO SCH (08:35)
[2020-03-07] MEDS: PANTOPRAZOLE SOD 40 MG TABEC PO SCH (08:35)
[2020-03-07] MEDS: CLOPIDOGREL BISULFATE 75 MG TAB PO SCH (08:35)
[2020-03-07] MEDS: ATENOLOL 50 MG TAB PO SCH (08:36)
[2020-03-07] MEDS: SODIUM CHLORIDE 0.9% 1000ML 1,000 ML IV SCH (09:48)
--- NOTE | 2020-03-07 16:40 | Progress Note ---
DATE: 03/07/2020 Cardiology progress note SUBJECTIVE: The patient denies chest pain or shortness of breath. She refuses statin therapy due to prior statin intolerance. OBJECTIVE: VITAL SIGNS: Temperature 98.2 degrees, pulse 65, respiratory rate 16, blood pressure 123/68, and oxygen saturation 93% on room air. GENERAL: Awake, alert, in no acute distress. LUNGS: Clear to auscultation bilaterally. No wheezes or crackles. CARDIOVASCULAR: Normal rate, regular rhythm. No murmur. Normal S1, S2. ABDOMEN: Soft, nontender. EXTREMITIES: No edema. CARDIAC MEDICATIONS: Atenolol 50 mg p.o. daily, Plavix 75 mg p.o. daily, aspirin 81 mg p.o. daily, levothyroxine 75 mcg p.o. daily, and amlodipine 10 mg p.o. at bedtime. LABORATORY DATA: WBC 12.31, hemoglobin 12.6, hematocrit 39.6, and platelets 266. Sodium 137, potassium 3.9, chloride 105, CO2 of 20, BUN 18, and creatinine 1.47. TELEMETRY: Personally reviewed and interpreted revealing normal sinus rhythm. IMPRESSION: 1. Severe peripheral arterial disease, status post successful angioplasty of left superficial femoral, popliteal, posterior tibial, and anterior tibial arteries. 2. Hypertension. 3. Hyperlipidemia. 4. Acute kidney injury on chronic kidney disease. 5. Obesity. RECOMMENDATIONS: The patient is status post successful angioplasty of the left superficial femoral, popliteal, posterior tibial and anterior tibial arteries. Continue aspirin and Plavix. Continue current cardiac medications. The patient's blood pressure is acceptable. Volume management per Nephrology given acute kidney injury on chronic kidney disease. She did receive a large amount of contrast due to the extensive intervention. We will monitor creatinine closely. Please have the patient follow up with Dr. Lee in the office in 2 weeks. Thank you for this consult. We will continue to follow. Cristina Huizar MD ABS/MODL /[id number]
--- NOTE | 2020-03-07 19:04 | NUR ---
Resumed care of patient. Patient awake and sitting up in bed, no s/s of distress at this time. All safety measures in place. Will continue to monitor.
[2020-03-07] MEDS: ATORVASTATIN 40 MG TAB PO SCH (21:00)
[2020-03-07] MEDS: AMLODIPINE BESYLATE 10 MG TAB PO SCH (21:35)
[2020-03-07] MEDS: BUPROPION HCL 150 MG TABCR PO SCH (21:35)
[2020-03-07] MEDS: CLONAZEPAM 1 MG TAB PO PRN (21:35)
--- NOTE | 2020-03-07 21:40 | NUR ---
Patient refusing atorvastatin, stating that she is allergic to statins.
[2020-03-08] VITALS: BP 119/71
--- NOTE | 2020-03-08 02:28 | Progress Note ---
DATE: 03/07/2020 Medicine Progress Note SUBJECTIVE: The patient was evaluated approximately 10:00 a.m. this morning. She is doing well today with no complaints. Her pain is better controlled. There is much more perfusion in the left lower extremity. LABORATORY DATA: Labs show white count 12.3, hemoglobin 12.6, hematocrit 39.6, platelets of 266. Chemistry, sodium 137, potassium 3.9, chloride 105, bicarb 20, anion gap of 15. BUN is 18, creatinine 1.47, calcium is 9.7. MICROBIOLOGY: None. IMAGING STUDIES: Nothing. PHYSICAL EXAMINATION: VITAL SIGNS: Temperature 98, pulse 70, respiratory rate 20, blood pressure 130/86, pulse ox 95% on room air. GENERAL: Not in acute distress. Alert and oriented x3. Cooperative on examination. PULMONARY: Clear to auscultation bilaterally. No wheezing, no rales, no rhonchi, no crackles appreciated. CARDIOVASCULAR: Positive S1 and S2. No murmurs, rubs, or gallops appreciated. GASTROINTESTINAL: Abdomen is soft, nondistended, and nontender to palpation. Bowel sounds present. MUSCULOSKELETAL: Strength is 5/5 throughout. No evidence of any muscle deficits on examination. No weakness appreciated. NEUROLOGIC: Cranial nerve 2 through 12 grossly intact. No evidence of any neurological deficits on exam. SKIN: Intact. Warm to touch. Good cap refill. PSYCHIATRIC: Normal affect and mood. EXTREMITIES: No edema. Good range of motion throughout. IMPRESSION: 1. Left lower extremity peripheral arterial disease, status post angioplasty and stent placement. 2. Severe peripheral artery disease, status post bilateral lower extremity angiogram with stent placement in both lower extremities. 3. Hypertension. 4. Acute kidney injury on chronic kidney disease, stage 3. 5. History of anxiety. PLAN: At this time, her creatinine is down trending, on IV fluids. Being managed by Nephrology. The patient is on aspirin and Plavix. Discussed with Cardiology. Okay for discharge to home with oral Plavix and aspirin. Discharge home tomorrow. The patient is doing well. MD KISHAN Moore/ARIELLAL /[id number]
[2020-03-08 04:00] VITALS: BP 124/64
[2020-03-08 05:46] LABS: BASOPHILS % 0.3 % (0.0-1.0); EOSINOPHILS # (AUTO) 0.5 (0.0-0.4); EOSINOPHILS % 4.6 % (0.0-6.0); HEMATOCRIT 38.7 % (34.2-44.1); HEMOGLOBIN 12.3 g/dL (12.0-16.0); LYMPHOCYTES # (AUTO) 2.9 (1.0-3.2); MEAN CORPUSCULAR HEMOGLOBIN 28.5 pg (28-32); MEAN CORPUSCULAR HGB CONC 31.8 g/dL (31-35); MEAN CORPUSCULAR VOLUME 89.8 fL (81-99); MONOCYTES % 9.2 % (4.4-11.3); NEUTROPHILS # (AUTO) 6.6 (2.1-6.9); NEUTROPHILS % 59.3 % (38.7-80.0); PLATELET COUNT 242 x10e3/uL (140-360); RED BLOOD COUNT 4.31 x10e6/uL (3.6-5.1); RED CELL DISTRIBUTION WIDTH 14.4 % (11.7-14.4)
[2020-03-08 06:05] LABS: CALCIUM 9.8 mg/dL (8.4-10.2); CREATININE, SERUM 1.62 mg/dL (0.57-1.11)
[2020-03-08] MEDS: LEVOTHYROXINE SODIUM 75 MCG TAB PO SCH (06:08)
--- NOTE | 2020-03-08 07:04 | NUR ---
Bedside report given to day nurse. Patient awake and resting in bed, no s/s of distress at this time. All safety measures in place.
[2020-03-08 08:14] VITALS: BP 150/63
[2020-03-08 08:42] VITALS: BP 150/63
[2020-03-08] MEDS: ATENOLOL 50 MG TAB PO SCH (08:59)
[2020-03-08] MEDS: ASPIRIN 81 MG CHEW TAB PO SCH (08:59)
[2020-03-08] MEDS: PANTOPRAZOLE SOD 40 MG TABEC PO SCH (08:59)
[2020-03-08] MEDS: CLOPIDOGREL BISULFATE 75 MG TAB PO SCH (08:59)
[2020-03-08] MEDS ORDERED: ONDANSETRON HCL 4 MG ORAL DISINTEGRATING TAB PO PRN (09:45)
[2020-03-08 12:05] VITALS: BP 139/87
[2020-03-08] MEDS ORDERED: ALDACTONE25 MG PO (15:30)
[2020-03-08 16:05] VITALS: BP 145/72
--- NOTE | 2020-03-08 17:55 | Progress Note ---
DATE: 03/08/2020 Cardiology Progress Note SUBJECTIVE: The patient denies chest pain or shortness of breath. She indicates the discoloration in her left foot is improving, although she is having some pain. OBJECTIVE: VITAL SIGNS: Temperature 98.1 degrees, pulse 68, respiratory rate 18, blood pressure 145/72, and oxygen saturation 93% on room air. GENERAL: Awake, alert, in no acute distress. LUNGS: Clear to auscultation bilaterally. No wheezes or crackles. CARDIOVASCULAR: Normal rate. Regular rhythm. No murmur. Normal S1 and S2. ABDOMEN: Soft and nontender. EXTREMITIES: No edema. Discoloration present at the tips of the toes on the left. CARDIAC MEDICATIONS: Plavix 75 mg p.o. daily, atenolol 50 mg p.o. daily, aspirin 81 mg p.o. daily, levothyroxine 75 mcg p.o. daily, and amlodipine 10 mg p.o. at bedtime. LABORATORY DATA: WBC 11.1, hemoglobin 12.3, hematocrit 38.7, and platelets 242. Sodium 140, potassium 4, chloride 107, CO2 21, BUN 18, and creatinine 1.62. Telemetry was personally reviewed and interpreted, revealing normal sinus rhythm. IMPRESSION: 1. Severe peripheral arterial disease, status post successful angioplasty of the left superficial femoral, popliteal, posterior tibial and anterior tibial arteries. 2. Hypertension. 3. Hyperlipidemia. 4. Acute kidney injury on chronic kidney disease. 5. Obesity. RECOMMENDATIONS: The patient is status post angioplasty as above. Continue aspirin and Plavix. Continue current cardiac medications. The patient refused statin therapy. Blood pressure is borderline today. If she is persistently hypertensive, we will need to titrate her atenolol. Volume management per Nephrology given acute kidney injury on chronic kidney disease. Monitor creatinine closely. Please have the patient follow up with Dr. Lee in the office in 2 weeks. Thank you for this consult. We will continue to follow. Cristina Huizar MD ABS/MODL /[id number]
--- NOTE | 2020-03-09 06:37 | Discharge Summary ---
FINAL DISCHARGE DIAGNOSES: 1. Bilateral severe peripheral artery disease, status post lower extremity angiogram with successful angioplasty of the left superficial femoral, popliteal, posterior tibial, and anterior tibial arteries with arterectomy. 2. Hypertension. 3. Acute kidney injury on chronic kidney disease, stage 3. 4. History of anxiety. CONSULTANTS: Nephrology and Cardiology. PHYSICAL EXAMINATION: VITAL SIGNS: Temperature 98.1, pulse 60, respirations is 18, blood pressure 145/72, pulse ox 95% on room air. LABORATORY DATA: White count was 11, hemoglobin 12, hematocrit 38.7, platelets of 242. Coagulation noted. Chemistry; sodium 140, potassium 4, chloride 107, bicarb 29, anion gap of 16, BUN is 18, creatinine 1.62, glucose is 97, calcium is 9.8. LFTs within normal range. CK was 185. Troponins were all negative. Albumin was 3.6. Serologies; coronavirus PCR was pending. Microbiology, none. IMAGING STUDIES: Lower extremity arterial Doppler shows indicative of severe PAD. HOSPITAL COURSE: This is a 69-year-old female, who came into the ED with complaints of left foot pain, found to have a decreased pulse in the left lower extremity, prompting Cardiology consultation. The patient underwent bilateral lower extremity angiogram performed by Cardiology on 03/06/2020, in which the patient underwent drug-eluted balloon angioplasty and mechanical thrombectomy as well as an angioplasty performed in the biology laboratory assistant. No stents were placed according to the op report. The patient was also maintained on a heparin drip. She was then converted to oral dual anti-platelet therapy with Plavix and aspirin. The patient did extremely well. According to the op report, the patient underwent successful angioplasty of the left superficial femoral, popliteal, posterior tibial, and anterior tibial arteries. Her left foot had evidence of a pulse and then the pain resolved. Nephrology was consulted for acute kidney injury and was started on IV fluid hydration. Her creatinine maintained stable. She was cleared for discharge by Cardiology and Nephrology. The patient denies any pain. She was back to normal baseline. Discoloration of the left foot, left toes of her left foot was improved with no issues. The patient was cleared for discharge. On the day of discharge, vital signs were stable, labs reviewed and stable. The patient is seen and evaluated and examined thoroughly on the day of discharge, no other complaints. 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 MEDICATIONS: See med reconciliation form. DISPOSITION: Home. CONDITION: Stable. DIET: Heart healthy. In the event of any worsening symptoms, the patient was advised to come back to the ED for further evaluation. Discharge summary took greater than 35 minutes. MD KISHAN Moore/MODL /[id number]
== END 2020-03-08 16:50 | disposition home or self-care (01) | DRG 271 ==
LOC: ER 22:33 → ERHOLD 03-05 05:04 → MED/SURG 03-05 16:14
PROVIDERS: ADMIT Internal Medicine; ATTEND Internal Medicine
PROC: 047L3Z1 Dilation of Left Femoral Artery using Drug-Coated Balloon, Percutaneous Approach (ICD-10-PCS; principal; 2020-03-06)
PROC: 04CN3ZZ Extirpation of Matter from Left Popliteal Artery, Percutaneous Approach (ICD-10-PCS; 2020-03-06)
PROC: 04CQ3ZZ Extirpation of Matter from Left Anterior Tibial Artery, Percutaneous Approach (ICD-10-PCS; 2020-03-06)
PROC: 047Q3Z1 Dilation of Left Anterior Tibial Artery using Drug-Coated Balloon, Percutaneous Approach (ICD-10-PCS; 2020-03-06)
PROC: 047S3Z1 Dilation of Left Posterior Tibial Artery using Drug-Coated Balloon, Percutaneous Approach (ICD-10-PCS; 2020-03-06)
PROC: 047N3Z1 Dilation of Left Popliteal Artery using Drug-Coated Balloon, Percutaneous Approach (ICD-10-PCS; 2020-03-06)
PROC: B4101ZZ Fluoroscopy of Abdominal Aorta using Low Osmolar Contrast (ICD-10-PCS; 2020-03-06)
PROC: B41G1ZZ Fluoroscopy of Left Lower Extremity Arteries using Low Osmolar Contrast (ICD-10-PCS; 2020-03-06)
DX: I70.203 Unspecified atherosclerosis of native arteries of extremities, bilateral legs (principal); N17.9 Acute kidney failure, unspecified; N18.4 Chronic kidney disease, stage 4 (severe); I70.92 Chronic total occlusion of artery of the extremities; I12.9 Hypertensive chronic kidney disease with stage 1 through stage 4 chronic kidney disease, or unspecified chronic kidney disease; N18.9 Chronic kidney disease, unspecified; E78.5 Hyperlipidemia, unspecified; Z88.1 Allergy status to other antibiotic agents; Z88.5 Allergy status to narcotic agent; Z88.2 Allergy status to sulfonamides; E66.01 Morbid (severe) obesity due to excess calories; E03.9 Hypothyroidism, unspecified; Z83.3 Family history of diabetes mellitus; Z82.49 Family history of ischemic heart disease and other diseases of the circulatory system; F41.9 Anxiety disorder, unspecified; I70.1 Atherosclerosis of renal artery; E87.5 Hyperkalemia; Z68.38 Body mass index [BMI] 38.0-38.9, adult; Z11.59 Encounter for screening for other viral diseases
CPT/HCPCS: 36200; 36247; 36415; 37186; 37220; 37224; 37225; 37228; 37229; 37232; 75625; 75630; 75716; 80048; 80053; 82550; 82553; 84484; 85025; 85610; 85730; 87635; 93926; 99152; 99153; 99284; C1724; C1725; C1757; C1760; C1769; C1887; C2623; J1644; J1885; J2001; J2250; J2405; J3010; J7030; Q9967

== ENCOUNTER → 2021-04-19 | Day surgery (SDC) | payer MEDICARE, BC ==
[2021-04-17 14:56] LABS: BASOPHILS # (AUTO) 0.1 (0.0-0.1); BASOPHILS % 0.7 % (0.0-1.0); EOSINOPHILS # (AUTO) 0.5 (0.0-0.4); EOSINOPHILS % 4.3 % (0.0-6.0); HEMATOCRIT 45.2 % (34.2-44.1); LYMPHOCYTES # (AUTO) 2.1 (1.0-3.2); MEAN CORPUSCULAR HEMOGLOBIN 27.3 pg (28-32); MEAN CORPUSCULAR VOLUME 88.3 fL (81-99); MONOCYTES # (AUTO) 0.9 (0.2-0.8); MONOCYTES % 7.5 % (4.4-11.3); NEUTROPHILS # (AUTO) 8.5 (2.1-6.9); NEUTROPHILS % 69.4 % (38.7-80.0); PLATELET COUNT 314 x10e3/uL (140-360); RED BLOOD COUNT 5.12 x10e6/uL (3.6-5.1); RED CELL DISTRIBUTION WIDTH 14.3 % (11.7-14.4)
[2021-04-17 15:17] LABS: INR 0.85; PROTHROMBIN TIME 12.2 seconds (11.9-14.5)
[2021-04-17 15:33] LABS: ALBUMIN 3.8 g/dL (3.5-5.0); ANION GAP 15.8 mmol/L (8-16); CALCIUM 9.9 mg/dL (8.4-10.2); CREATININE, SERUM 2.01 mg/dL (0.57-1.11); POTASSIUM 4.8 mmol/L (3.5-5.1)
[~2021-04-19] VITALS: Ht 170.2 cm; Wt 107.5 kg
[2021-04-19] VITALS (9 sets, daily range): BP systolic 128–160; BP diastolic 74–90
[~2021-04-19] MED LIST changes: +ASPIRIN 325 MG TAB ONE; +CLONAZEPAM2 MG PO; +CLOPIDOGREL75 MG PO; +DIPHENHYDRAMINE HCL INJ 50 MG/ML VIAL ONE; +FENTANYL CITRATE/PF 100MCG/2 ML INJ ONE; +GABAPENTIN400 MG PO; +HEPARIN SOD/SOD CHLORIDE 2,000 ML ONE; +IOPAMIDOL 300MG/ML 100 ML INFUS..BTL IV ONE; +LIDOCAINE HCL 2% LOCAL 20 ML VIAL ONE; +LINZESS145 MCG PO; +MIDAZOLAM HCL 2 MG/2 ML VIAL ONE; +SODIUM CHLORIDE 0.9% 1000ML 1,000 ML ONE; +TICAGRELOR 90 MG TABLET ONE; +VERAPAMIL HCL 2.5 MG/ML 2 ML VIAL ONE; +VITAMIN D3 PO
== END | disposition home or self-care (01) ==
LOC: CATH LAB 09:25
PROVIDERS: ATTEND Internal Medicine Cardiovascular Disease
DX: I70.213 Atherosclerosis of native arteries of extremities with intermittent claudication, bilateral legs (principal); Z88.2 Allergy status to sulfonamides; Z88.8 Allergy status to other drugs, medicaments and biological substances; Z88.1 Allergy status to other antibiotic agents; Z88.5 Allergy status to narcotic agent; Z91.013 Allergy to seafood
CPT/HCPCS: 36415; 37229; 75625; 76937; 80053; 85025; 85610; C1724; C1760; C1769 ×4; C1887; J1200; J2001; J2250; J3010; J7030; Q9967; 36247; 37228; 75630; 75716; 99152; 99153

== ENCOUNTER → 2024-07-30 | Outpatient (REF) | payer MEDICARE, BC ==
[~2024-07-30] MED LIST changes: -ASPIRIN 325 MG TAB ONE; -DIPHENHYDRAMINE HCL INJ 50 MG/ML VIAL ONE; -FENTANYL CITRATE/PF 100MCG/2 ML INJ ONE; -HEPARIN SOD/SOD CHLORIDE 2,000 ML ONE; -IOPAMIDOL 300MG/ML 100 ML INFUS..BTL IV ONE; -LIDOCAINE HCL 2% LOCAL 20 ML VIAL ONE; -MIDAZOLAM HCL 2 MG/2 ML VIAL ONE; -SODIUM CHLORIDE 0.9% 1000ML 1,000 ML ONE; -TICAGRELOR 90 MG TABLET ONE; -VERAPAMIL HCL 2.5 MG/ML 2 ML VIAL ONE
== END ==
LOC: RAD 15:44
PROVIDERS: ATTEND Emergency Medicine
DX: M25.521 Pain in right elbow (principal); M25.511 Pain in right shoulder; R07.81 Pleurodynia; S42.211A Unspecified displaced fracture of surgical neck of right humerus, initial encounter for closed fracture; Z91.81 History of falling
CPT/HCPCS: 71101